=== PATIENT | female | born 1970 | race Caucasian/White ===

== ENCOUNTER 2020-09-07 13:02 | Emergency (ER) | payer MEDICAID, SELFPAY ==
[2020-09-07 13:18] VITALS: BP 120/78; PULSE 94; RESP 18; TEMP 36.4; O2SAT 100; BMI 15.7
--- NOTE | 2020-09-07 13:45 | ECG_ITS ---
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: : 1970 Requested By: Don Almanzar Order Number: [id number] Lawrence MD: JENNIFER SHAFFER Measurements Intervals [place] Rate: 82 P: 68 RI: 135 QRS: 67 QRSD: 92 T: 73 QT: 383 QTc: 450 Interpretive Statements SINUS RHYTHM POSSIBLE RIGHT VENTRICULAR CONDUCTION DELAY [RSR (QR) IN V1/V2] MODERATE ST DEPRESSION [0.05+ mV ST DEPRESSION] Compared to ECG 01/22/2019 23:11:10 No significant changes Electronically Signed On 09-07-2020 18:20:08 CDT by JENNIFER SHAFFER [id number]
--- NOTE | 2020-09-07 13:45 | XRR_ITS ---
PROCEDURE INFORMATION: Exam: XR Chest, 1 View Exam date and time: 09/07/2020 2:16 PM Age: 49 years old Clinical indication: Shortness of breath; Additional info: SOB TECHNIQUE: Imaging protocol: XR of the chest Views: 1 view. COMPARISON: CR Chest 1 view [id number] 01/22/2019 10:54 PM FINDINGS: Lungs: Unremarkable. No consolidation. Pleural space: Unremarkable. No pleural effusion. No pneumothorax. Heart/Mediastinum: Unremarkable. No cardiomegaly. Bones/joints: Unremarkable. XR/XR chest 1V portable [id number] IMPRESSION: No acute findings.
--- NOTE | 2020-09-07 13:46 | ED_ITS ---
HPI - SOB/Dyspnea General: Chief Complaint: Shortness of Breath/Dyspnea Stated Complaint: hard breathing / cp/ gagging Time Seen by Provider: 09/07/20 13:45 History of Present Illness: HPI Narrative: Patient is a 49-year-old female comes to the ED with shortness of breath. Past medical history of GERD. An upper scope was performed back in 2010 and they told her that she had acid reflux. She takes omeprazole to help with acid reflux, but has run out of m edication. Patient says the symptoms are chronic. She denies any epigastric pain or burning, but says her GERD symptom described as feeling something in her throat. She also reports having chronic episodes of shortness of breath, especially in the mornings. She does not have any inhalers and has not been diagnosed with any asthma or COPD. She says she does have a dry cough and sometimes it is productive and she gets up clear phlegm. Patient says she is a pack per day smoker with 99-kdld-gnev history. She also says that she drinks a 12 pack of beer every night. Patient endorses pain some diarrhea and some nausea with emesis after eating. She says for the past 2 weeks she has not eaten much because she is afraid she is getting nauseous and throwing up. Denies fever, chills, abdominal pain, constipation, dysuria or hematuria. Associated symptoms: Reports nausea and vomiting; Deny abdominal pain, chest pain, fever(s), orthopnea or palpitations Review of Systems Const: Denies: fever(s), chills or fatigue Eyes: Denies: change in vision or eye discomfort ENMT: Denies: throat pain, odynophagia, nasal discharge or nasal congestion Card: Denies: chest pain, palpitations, edema, swelling of feet/ankles, dyspnea on exertion or orthopnea Resp: Reports: dyspnea, productive cough (sometimes clear phlegm) and non- productive cough; Denies: wheezing GI: Reports: nausea, vomiting and diarrhea (chronic); Denies: abdominal pain, constipation or hematochezia : Denies: flank pain, dysuria or hematuria Musc: Denies: neck pain, back pain or extremity swelling Skin/Breast: Denies: rash or new lesions Neuro: Denies: headache(s), numbness in extremities or weakness in extremities Physical Exam Const: COMMON NORMALS: no acute distress, patient oriented x3 and alert GENERAL APPEARANCE: cooperative NUTRITIONAL APPEARANCE: cachectic HENMT: COMMON NORMALS: normocephalic HEAD & SCALP: normocephalic MOUTH: Normal oral and palatal mucosa present THROAT: posterior oropharynx normal and uvula midline Eye: COMMON NORMALS: Equal, round and reactive pupils present PUPIL: Yes Equal, round and reactive pupils present Neck/C-Spine: COMMON NORMALS: supple GENERAL: Yes normal visual inspection Resp: COMMON NORMALS: normal respiratory effort, No retractions and No use of accessory muscles EFFORT & INSPECTION: Yes able to speak in complete sentences and No labored AUSCULTATION: wheezes expiratory wheezes, i nspiratory wheezes and upper bilaterally Cardio: COMMON NORMALS: regular rate, regular rhythm, S1 normal heart sound present, S2 normal heart sound present, No gallops present (Cardio), No clicks present (Cardio), No murmurs present (Cardio) and Peripheral pulses 2+ throughout RATE: regular rate RHYTHM: regular rhythm HEART SOUNDS: S1 normal heart sound present and S2 normal heart sound present PERIPHERAL PULSES: Peripheral pulses 2+ throughout GI: COMMON NORMALS: Normal to inspection, nondistended, normoactive bowel sounds present, Soft to palpation, non-tender and no masses PALPATION: Yes Soft to palpation OTHER: No epigastric tenderness upon palpation. : COMMON NORMALS: Yes no CVA tenderness BLADDER/KIDNEY EXAM: Yes no CVA tenderness Back/Pelvis: COMMON NORMALS: no CVA tenderness Extremity: COMMON NORMALS: normal to inspection and no pedal edema Neuro: COMMON NORMALS: patient oriented x3 and moves all extremities SENSORIUM/ORIENTATION: Yes alert Skin: GENERAL SKIN EXAM: dry skin Course Reevaluation(s): Reevaluation #1: I then told patient about positive hCG test. She states she has not had a period in years. She denies any vaginal bleeding. She states she has not had any sexual contact and says there is no way that she could be . Denies any abdominal pain or UTI symptoms. Time: 15:33 Vital Signs: Vital signs: Vital Signs Temperature 97.5 F L 09/07/20 13:18 Pulse Rate 92 09/07/20 15:34 Respiratory Rate 17 09/07/20 15:34 Blood Pressure 116/68 09/07/20 15:34 Pulse Oximetry 97 09/07/20 15:34 MDM - SOB/Dyspnea MDM Narrative: Medical decision making narrative: Patient is a 49-year-old female comes to the ED with GERD symptoms. She states that this is a chronic issue that has been going on for years. Patient is a 84-ovmc-pmao smoker and drinks alcohol daily. Patient takes omeprazole but has run out. EKG showed normal sinus rhythm, with minimal ST segment depression seen, but when compared to EKG back in 2019 EKG is unchanged. Troponins were negative. Chest x-ray showed no acute infiltrates or findings. CBC was unremarkable. Sodium 128, AST 118, ALT 59 and alk phos 164. hCG was positive. hCG quant of 15 and ultrasound of pelvis showed no intrauterine , no ectopic, tubular structure with debris right adnexa of unclear etiology. Patient is having no abdominal pain, UTI symptoms, pelvic pain, vaginal bleeding or discharge. Patient diagnosed with GERD and elevated serum hCG level and . Patient was discharged with pantoprazole and Zofran. She was told to contact her PCP on Thursday morning get an appointment for reevaluation early next week. I stressed with patient the importance of cessation of tobacco smoking and alcohol to help with GERD symptoms. Return to ED precautions given. Patient understood agree with plan. Lab Data: Attestation: I reviewed the patient's lab results. Labs: Lab Results 09/07/20 09/07/20 09/07/20 Range/Units 14:33 14:33 14:33 WBC 5.4 (4.0-10.0) 10^3/ uL RBC 4.44 (4.1-5.3) 10^6/u L Hgb 15.6 H (11.5-15.3) g/dL Hct 44.9 (37.0-47.0) % MCV 101.1 H (81-99) fL MCH 35.1 H (28.0-34.0) pg MCHC 34.7 (30.0-36.0) g/dL RDW 12.2 (12.1-15.1) % Plt Count 153 (130-400) 10^3/c mm MPV 10.4 (7.4-10.4) fL Neut % (Auto) 69.4 % Lymph % (Auto) 19.0 % Snyder % (Auto) 8.8 % Eos % (Auto) 1.3 % Baso % (Auto) 1.3 % Neut # (Auto) 3.77 (1.8-7.7) 10^3/u L Lymph # (Auto) 1.0 (0.8-4.8) 10^3/u L Snyder # (Auto) 0.5 (0.2-0.9) 10^3/u L Eos # (Auto) 0.1 (0.0-0.8) 10^3/u L Baso # (Auto) 0.1 (0.0-0.1) 10^3/u L Nucleated RBC % (a uto) 0 % Nucleated RBCs # 0.0 /100WBC Sodium 128 L (136-145) mmol/L Potassium 3.5 (3.5-5.1) mmol/L Chloride 88 L (98-107) mmol/L Carbon Dioxide 27 (22-29) mmol/L Anion Gap 16.5 (5-19) BUN 4 L (6-20) mg/dL Creatinine 0.5 (0.5-0.9) mg/dL GFR Calculation 130.1 H (90-130) mL/min Glucose 133 H (65-115) mg/dL Calculated Osmolal ity 265 L (285-295) mOsm/k g Calcium 9.4 (8.5-10.5) mg/dL Total Bilirubin 1.2 (0.15-1.2) mg/dL AST 118 H (0-32) U/L ALT 59 H (0-33) U/L Alkaline Phosphata se 164 H (35-105) IU/L Troponin T Baselin e 6 (0-10) ng/L Troponin T 120 Min tribal (0-10) ng/L Delta Troponin T (0-10) ABS# Total Protein 6.9 (6.6-8.7) g/dL Albumin 3.5 (3.5-5.2) g/dL Globulin 3.4 (1.3-4.6) g/dL HCG, Qual (Negative) Ser , Alfonso i-Qnt mIU/mL 09/07/20 09/07/20 09/07/20 Range/Units 14:33 14:33 16:30 WBC (4.0-10.0) 10^3/ uL RBC (4.1-5.3) 10^6/u L Hgb (11.5-15.3) g/dL Hct (37.0-47.0) % MCV (81-99) fL MCH (28.0-34.0) pg MCHC (30.0-36.0) g/dL RDW (12.1-15.1) % Plt Count (130-400) 10^3/c mm MPV (7.4-10.4) fL Neut % (Auto) % Lymph % (Auto) % Snyder % (Auto) % Eos % (Auto) % Baso % (Auto) % Neut # (Auto) (1.8-7.7) 10^3/u L Lymph # (Auto) (0.8-4.8) 10^3/u L Snyder # (Auto) (0.2-0.9) 10^3/u L Eos # (Auto) (0.0-0.8) 10^3/u L Baso # (Auto) (0.0-0.1) 10^3/u L Nucleated RBC % (a uto) % Nucleated RBCs # /100WBC Sodium (136-145) mmol/L Potassium (3.5-5.1) mmol/L Chloride (98-107) mmol/L Carbon Dioxide (22-29) mmol/L Anion Gap (5-19) BUN (6-20) mg/dL Creatinine (0.5-0.9) mg/dL GFR Calculation (90-130) mL/min Glucose (65-115) mg/dL Calculated Osmolal ity (285-295) mOsm/k g Calcium (8.5-10.5) mg/dL Total Bilirubin (0.15-1.2) mg/dL AST (0-32) U/L ALT (0-33) U/L Alkaline Phosphata se (35-105) IU/L Troponin T Baselin e (0-10) ng/L Troponin T 120 Min tribal 6.28 (0-10) ng/L Delta Troponin T 0.28 (0-10) ABS# Total Protein (6.6-8.7) g/dL Albumin (3.5-5.2) g/dL Globulin (1.3-4.6) g/dL HCG, Qual Positive H (Negative) Ser , Alfonso i-Qnt 15.10 mIU/mL Imaging Data^: CXR: Attestation: I personally reviewed and interpreted this imaging study as follows: Radiologist's impression: [address] [place] [address] XRay Report Signed Patient: Hortencia Mckeon Unit #: [id number] : 1970 Age/Sex: 49 / F ADM Date: 09/07/20 Loc: ER Room/Bed: Attending Dr: Ordering Provider/Ordering MD: Don Almanzar Date of Service: 09/07/20 Procedure(s): XR chest 1V portable [id number] Accession Number(s): [id number] Report Number: [id number] PROCEDURE INFORMATION: Exam: XR Chest, 1 View Exam date and time: 09/07/2020 2:16 PM Age: 49 years old Clinical indication: Shortness of breath; Additional info: SOB TECHNIQUE: Imaging protocol: XR of the chest Views: 1 view. COMPARISON: CR Chest 1 view [id number] 01/22/2019 10:54 PM FINDINGS: Lungs: Unremarkable. No consolidation. Pleural space: Unremarkable. No pleural effusion. No pneumothorax. Heart/Mediastinum: Unremarkable. No cardiomegaly. Bones/joints: Unremarkable. XR/XR chest 1V portable [id number] IMPRESSION: No acute findings. Dictated By: Hosea Veloz Signed By: Hosea Veloz Signed Date/Time: 09/07/20 1433 DD/ 1432 US: Attestation: I personally reviewed and interpreted this imaging study as follows: Radiologist's impression: logy Report Patient: Hortencia Mckeon L Ordering Physician: Don Almanzar ID: [id number] Phone, Pager: Pager: N/A : 1970 Age/Gender: 49Y, F Primary Location: ER Procedure: US pelvic with transvaginal Study Date: 09/07/2020 4:00:14 PM Order #: [id number] Report Status: Finalized Reason: HCG positive [address] [address] Ultrasound Report Signed Patient: Hortencia Mckeon Unit #: [id number] : 1970 Age/Sex: 49 / F ADM Date: 09/07/20 Loc: ER Room/Bed: Attending Dr: Ordering Provider/Ordering MD: Don Almanzar Date of Service: 09/07/20 Procedure(s): US pelvic with transvaginal Accession Number(s): [id number] Report Number: [id number] PROCEDURE INFORMATION: Exam: US Nonobstetric Pelvis; Complete Exam date and time: 09/07/2020 4:23 PM Age: 49 years old Clinical indication: Abnormal findings; Abnormal lab test; + test; Additional info: Hcg positive TECHNIQUE: Imaging protocol: Transabdominal pelvic nonobstetric ultrasound. Complete exam. Real time ultrasound with image documentation. COMPARISON: OT Hip 2-3v RIGHT wwo Pelv* [id number] 01/23/2019 12:52 PM FINDINGS: Negative for intrauterine gestational sac, pole, or yolk sac. In the presence of a positive test the differential diagnosis includes early normal , recent spontaneous , and ectopic . Uterus/cervix: Uterus is normal. Endometrial stripe is 2.8 mm. The uterus measures 6.5 cm x 3 cm x 4.3 cm. There are cervical myometrial cyst Right adnexa: Ovary is not visualized . There is a tubular structure in the right adnexa which may reflect dilated fallopian tube with internal debris. this finding is not optimally visualized. Left adnexa: Ovary is not visualized Intraperitoneal space: No intraperitoneal free fluid. Bladder: Normal. The examination is negative for sonographic evidence of an ectopic US/US pelvic with transvaginal IMPRESSION: 1. Negative for intrauterine gestational sac, pole, or yolk sac. Rule out recent spontaneous , early normal , or ectopic . 2. Negative for ectopic . 3. Multiple cervical myometrial cysts 4. tubular structure with debris right adnexa of unclear etiology. 5. The ovaries are not visualized. 6. Negative uterine myometrium Dictated By: Hosea Veloz Signed By: Hosea Veloz Signed Date/Time: 09/07/201651 DD/ 1650 EKG Data^: EKG 1: Attestation: I personally reviewed and interpreted this EKG as follows: EKG Interpretation Date: 09/07/20 Interpretation: Sinus rhythm, 82 bpm, some ST depression in leads V4 and V5. Computer Generated Interpretation: Sinus rhythm -POSSIBLE RIGHT VENTRICULAR CONDUCTION DELAY [RSR (QR) IN V1/V2] MODERATE ST DEPRESSION [0.05+ mV ST DEPRESSION] Compared to ECG 01/22/2019 23:11:10 No significant changes-Dr. Mcpherson EKG 2: Attestation: I personally reviewed and interpreted this EKG as follows: EKG Interpretation Date: 09/07/20 EKG interpretation time: 15:56 Interpretation: Sinus rhythm, 79 bpm, ST segment depression in leads V4 and V5- unchanged from previous EKG. Discharge Plan Discharge Patient Disposition: Home Clinical Impression: Elevated serum hCG in female, not , Hyponatremia Gastroesophageal reflux disease Qualifiers: Esophagitis presence: esophagitis presence not specified Qualified Code(s): K21.9 - Gastro-esophageal reflux disease without esophagitis Condition: Stable Prescriptions: New ondansetron 4 mg tablet,disintegrating 4 mg PO Q8H Qty: 30 RF: 0 pantoprazole 40 mg tablet,delayed release (DR/EC) 40 mg PO DAILY 30 Days Qty: 30 RF: 0 No Action levothyroxine 100 mcg Tablet 100 mcg PO DAILY RF: 0 omeprazole 20 mg Tablet,Delayed Release (Dr/Ec) 20 mg PO DAILY RF: 0 Discharge Orders: Discharge Order (Routine); Ordered 09/07/20 Ordered By: Don Almanzar Referrals: Che Flores DO [Primary Care Provider] - Discharge Diet: Regular Discharge Activity: Increase activity as tolerated Patient Instructions: Hyponatremia (ED), Gastroesophageal Reflux Disease (ED) Activity Restrictions/Additional Instructions: Follow-up with medical provider as directed. Contact PCP on Thursday morning to set up an appointment for reevaluation early next week. Have PCP check care hCG quant lab along with CMP lab to check sodium levels. Take medications as prescribed. Alcohol and tobacco cessation is highly recommended to help with GERD symptoms. Return to the ER or your medical provider if condition worsens. Please read and understand discharge instructions. If any questions, please ask. Discharge Date/Time: 09/07/20 18:36 Coding Level of Care Code ED Wine Steward/Stewardess for Chg Fwd Exam Comprehensive
[2020-09-07 14:15] VITALS: BP 118/80; PULSE 87; RESP 19; O2SAT 96
[2020-09-07] MEDS: lidocaine 2% viscous 15 ML, aluminum-mag hydrox-simethicon 30 ML, sucralfate oral liq 1 GM PO (14:21)
[2020-09-07 14:40] LABS: Basophils # 0.1 10^3/uL (0.0-0.1); Basophils % 1.3 %; Eosinophils # 0.1 10^3/uL (0.0-0.8); Eosinophils % 1.3 %; Hematocrit 44.9 % (37.0-47.0); Hemoglobin 15.6 g/dL (11.5-15.3); Mean Corpuscular HGB Conc 34.7 g/dL (30.0-36.0); Mean Corpuscular Hemoglobin 35.1 pg (28.0-34.0); Mean Corpuscular Volume 101.1 fL (81-99); Mean Platelet Volume 10.4 fL (7.4-10.4); Monocytes # 0.5 10^3/uL (0.2-0.9); Monocytes % 8.8 %; Neutrophils # 3.77 10^3/uL (1.8-7.7); Neutrophils % 69.4 %; Nucleated Red Blood Cells % 0 %; Platelet Count 153 10^3/cmm (130-400); Red Blood Count 4.44 10^6/uL (4.1-5.3); Red Cell Distribution Width 12.2 % (12.1-15.1); White Blood Count 5.4 10^3/uL (4.0-10.0)
[2020-09-07 14:47] VITALS: PULSE 82; RESP 16; O2SAT 93
[2020-09-07] MEDS: ipratropium-albuterol 3 mL Neb INHALATION (14:47)
[2020-09-07 14:55] LABS: HCG, Serum Qual Positive (Negative)
[2020-09-07 15:03] LABS: Alanine Aminotransferase 59 U/L (0-33); Albumin Level 3.5 g/dL (3.5-5.2); Alkaline Phosphatase 164 IU/L (35-105); Anion Gap 16.5 (5-19); Aspartate Amino Transferase 118 U/L (0-32); Blood Urea Nitrogen 4 mg/dL (6-20); Calcium 9.4 mg/dL (8.5-10.5); Carbon Dioxide 27 mmol/L (22-29); Chloride 88 mmol/L (98-107); Creatinine Clr Calc Pharmacy 104.8488; Globulin 3.4 g/dL (1.3-4.6); Glomerular Filtration Rate 130.1 mL/min (90-130); Glucose 133 mg/dL (65-115); Osmolality Calculated 265 mOsm/kg (285-295); Potassium 3.5 mmol/L (3.5-5.1); Sodium 128 mmol/L (136-145); Total Bilirubin 1.2 mg/dL (0.15-1.2); Total Protein 6.9 g/dL (6.6-8.7)
[2020-09-07 15:04] LABS: Troponin(5th) Baseline 6 ng/L (0-10)
[2020-09-07 15:34] VITALS: BP 116/68; PULSE 92; RESP 17; O2SAT 97
--- NOTE | 2020-09-07 15:36 | USR_ITS ---
PROCEDURE INFORMATION: Exam: US Nonobstetric Pelvis; Complete Exam date and time: 09/07/2020 4:23 PM Age: 49 years old Clinical indication: Abnormal findings; Abnormal lab test; + test; Additional info: Hcg positive TECHNIQUE: Imaging protocol: Transabdominal pelvic nonobstetric ultrasound. Complete exam. Real time ultrasound with image documentation. COMPARISON: OT Hip 2-3v RIGHT wwo Pelv* [id number] 01/23/2019 12:52 PM FINDINGS: Negative for intrauterine gestational sac, pole, or yolk sac. In the presence of a positive test the differential diagnosis includes early normal , recent spontaneous , and ectopic . Uterus/cervix: Uterus is normal. Endometrial stripe is 2.8 mm. The uterus measures 6.5 cm x 3 cm x 4.3 cm. There are cervical myometrial cyst Right adnexa: Ovary is not visualized . There is a tubular structure in the right adnexa which may reflect dilated fallopian tube with internal debris. this finding is not optimally visualized. Left adnexa: Ovary is not visualized Intraperitoneal space: No intraperitoneal free fluid. Bladder: Normal. The examination is negative for sonographic evidence of an ectopic US/US pelvic with transvaginal IMPRESSION: 1. Negative for intrauterine gestational sac, pole, or yolk sac. Rule out recent spontaneous , early normal , or ectopic . 2. Negative for ectopic . 3. Multiple cervical myometrial cysts 4. tubular structure with debris right adnexa of unclear etiology. 5. The ovaries are not visualized. 6. Negative uterine myometrium
--- NOTE | 2020-09-07 15:45 | ECG_ITS ---
[facility] Test Date: 2020-09-07 Pat Name: Hortencia Mckeon Department: Room: Gender: Female Turner Off: : 1970 Requested By: Don Almanzar Order Number: [id number] Lawrence MD: JENNIFER SHAFFER Measurements Intervals [place] Rate: 79 P: 75 MS: 154 QRS: 71 QRSD: 94 T: 57 QT: 377 QTc: 434 Interpretive Statements SINUS RHYTHM POSSIBLE RIGHT VENTRICULAR CONDUCTION DELAY [RSR (QR) IN V1/V2] NONSPECIFIC ST & T-WAVE ABNORMALITY Compared to ECG 09/07/2020 14:10:36 T-wave abnormality now present ST (T wave) deviation no longer present Electronically Signed On 09-07-2020 18:21:39 CDT by JENNIFER SHAFFER [id number]
[2020-09-07 17:03] LABS: Troponin 5 2HR 6.28 ng/L (0-10); Troponin 5 2HR Delta 0.28 ABS# (0-10)
[2020-09-07] MEDS: sodium chloride 0.9% 1,000 ML 999 ML IV (17:19)
== END 2020-09-07 18:36 | disposition home or self-care (01) ==
PROVIDERS: Emergency Provider Physician Assistant; PCP Internal Medicine
DX: K21.9 Gastro-esophageal reflux disease without esophagitis (principal); R79.89 Other specified abnormal findings of blood chemistry; E87.1 Hypo-osmolality and hyponatremia
CPT/HCPCS: 12345; 71045; 76830; 76856; 80053; 84484; 84702; 84703; 85025; 93005; 94640; 96360; 99283; 99284; J7030

== ENCOUNTER 2020-10-02 12:49 | Outpatient (CLI) | payer MEDICAID, SELFPAY ==
--- NOTE | 2020-10-02 12:59 | CT_ITS ---
WS: [id number] CT CHEST, ABDOMEN, AND PELVIS TECHNIQUE: Contrast-enhanced CT of the chest, abdomen, and pelvis with coronal and sagittal reformatt ed images. CLINICAL INFORMATION: DYSPNEA/SHORTNESS OF BREATH, TOBACCO USE, ALCOHOL ABUSE COMPARISON: Ultrasound September 07, 2020 DLP: 1265.[address] scans at [facility] use at least one of these dose optimization techniques: automat ed exposure control; mA and/or kV adjustment per patient size (includes targeted exams where dose is matched to clinical indication); or iterative reconstruction. CT CHEST: Mild chronic emphysematous changes. No acute pulmonary infiltrates. No focal pneumonia. No consolidat ion or pleural fluid. Subsegmental atelectasis right lower lobe. Chronic right rib fractures with yareli ileana formation. No axillary lymphadenopathy. No mediastinal or hilar lymphadenopathy. CT ABDOMEN AND PELVIS: Diffuse fatty infiltration of the liver. Normal portal vein and splenic vein. Normal gallbladder. Nor mal pancreas. Adrenal glands are normal. Normal renal parenchymal enhancement. Normal spleen. Normal GE junction. Normal sigmoid colon. No evidence of small or large bowel obstruction. No periaortic or retroperitoneal lymphadenopathy. No inguinal lymphadenopathy. Distention of the right common femoral vein and external iliac vein with peripheral enhancement suspi cious for thrombus. This can be further evaluated with ultrasound. Adnexa appear normal. No adnexal mass or hydrosalpinx. Prior postoperative changes cannulated screw f ixation right femoral neck. Lumbar curve. No free fluid in the abdomen or pelvis. CT/CT chest abd pel w con* IMPRESSION: 1. Mild chronic emphysematous changes. No acute pulmonary infiltrates. 2. Slight subsegmental atelectasis right lower lobe. 3. No mediastinal or hilar lymphadenopathy. 4. Diffuse fatty infiltration of the liver. 5. Distention and peripheral enhancement right common femoral vein extending i nto the external iliac vein suspicious for THROMBUS. This can be further evalua sonali with ultrasound. 6. No free fluid in the abdomen or pelvis. 7. No adnexal masses. No evidence of hydrosalpinx. Discussed with Dr. Flores's nurse at 10/02/2020 3:38 PM.
[2020-10-02] MEDS: iohexol 300 mg/mL 50 mL Btl PO (13:26)
[2020-10-02] MEDS: iohexol 300 mg/mL 100 mL Btl IV (15:09)
== END 2020-10-02 12:50 | disposition home or self-care (01) ==
LOC: RADWPI 12:52
PROVIDERS: PCP Internal Medicine; Visit Provider Internal Medicine
DX: R06.02 Shortness of breath (principal); F17.209 Nicotine dependence, unspecified, with unspecified nicotine-induced disorders; Z32.01 Encounter for pregnancy test, result positive; F10.10 Alcohol abuse, uncomplicated; K76.89 Other specified diseases of liver; J98.11 Atelectasis
CPT/HCPCS: 71260; 74177; Q9967

== ENCOUNTER 2020-10-03 10:07 | Outpatient (CLI) | payer MEDICAID, SELFPAY ==
--- NOTE | 2020-10-03 10:23 | USCV_ITS ---
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 The following venous structures were evaluated: common femoral vein, profunda vein, proximal portion of the greater saphenous vein, superficial femoral vein, and the popliteal vein. In addition, the posterior tibial and peroneal trunk were evaluated. Serial compression, augmentation maneuvers, and spectral Doppler flow evaluation were performed. FINDINGS: Occlusive DVT is noted within the right common femoral vein extending throughout the lower extremity to the peroneal. All other veins examined appear free of thrombus at this time. No left DVT. CONCLUSIONS Acute DVT right CFV through the peroneal vein. No left DVT. Dr. Yoly Miles DO (Electronically Signed) Final Date: 03 October 2020 11:32 S
== END 2020-10-03 10:08 | disposition home or self-care (01) ==
LOC: RAD 10:16
PROVIDERS: PCP Internal Medicine; Visit Provider Nurse Practitioner Family
DX: I82.451 Acute embolism and thrombosis of right peroneal vein (principal)
CPT/HCPCS: 93970

== ENCOUNTER 2021-03-14 12:35 | Outpatient (CLI) | payer MEDICAID, SELFPAY ==
--- NOTE | 2021-03-14 12:45 | USCV_ITS ---
Hortencia Mckeon Age: 50 Gender: F : 1970 Exam Date: 03/14/2021 13:02 Ordering Phys: Bhanu Bates MD Technologist: Maricel Arteaga [place] [facility] [place]: History of deep vein thrombosis HISTORY: History of deep venous thrombosis. PROCEDURES: Comparison: 10-03-2020. Venous duplex imaging was performed in only the right lower extremity. The following venous structures were evaluated: common femoral vein, profunda vein, proximal portion of the greater saphenous vein, superficial femoral vein, and the popliteal vein. In addition, the posterior tibial and peroneal trunk were evaluated. Serial compression, augmentation maneuvers, and spectral Doppler flow evaluation were performed. FINDINGS: Deep venous thrombosis noted in the mid-distal femoral vein on the right. Vessel appears small. Partial compression with thrombus noted in the peroneal trunk. CONCLUSIONS Residual thrombus mid to distal femoral vein with changes of chronic DVT. Small femoral vein. Non occlusive thrombus peroneal trunk Carter Dwyer MD (Electronically Signed) Final Date: 14 Mar 2021 18:03 S
== END 2021-03-14 12:36 | disposition home or self-care (01) ==
PROVIDERS: PCP Internal Medicine; Visit Provider Surgery
DX: Z86.718 Personal history of other venous thrombosis and embolism (principal); I82.419 Acute embolism and thrombosis of unspecified femoral vein
CPT/HCPCS: 93971

== ENCOUNTER 2021-03-30 06:23 | Inpatient (IN) | payer MEDICAID, SELFPAY ==
[2021-03-30] VITALS (94 sets, daily range): BP systolic 83–120; BP diastolic 53–72; PULSE 90–122; RESP 12–30; TEMP 36.6–37.1; O2SAT 78–100; BMI 17.8
--- NOTE | 2021-03-30 06:35 | XRR_ITS ---
PROCEDURE INFORMATION: Exam: XR Chest Exam date and time: 03/30/2021 6:37 AM Age: 50 years old Clinical indication: Cough and shortness of breath; Smoker's cough TECHNIQUE: Imaging protocol: XR of the chest. Views: 1 view. COMPARISON: Chest radiograph 09/07/2020 FINDINGS: Lungs: The right lung is clear. Mild left basilar airspace opacity (atelectasis and/or consolidation), new compared to 09/07/2020. No pulmonary edema identified. Pleural spaces: No visible pneumothorax. Small left pleural effusion, new compared to 09/07/2020. Heart/Mediastinum: Heart size within normal limits. Bones/joints: No emergent findings identified. XR/XR chest 1V portable [id number] IMPRESSION: 1. Mild left basilar airspace opacity (atelectasis and/or consolidation), new compared to 09/07/2020. 2. Small left pleural effusion, new compared to 09/07/2020.
--- NOTE | 2021-03-30 06:35 | CTR_ITS ---
PROCEDURE INFORMATION: Exam: CTA Chest With Contrast Exam date and time: 03/30/2021 6:45 AM Age: 50 years old Clinical indication: Abdominal tenderness and bloating; Cough and shortness of breath; Smoker's cough; Additional info: SOB with elevated ddimer TECHNIQUE: Imaging protocol: Computed tomographic angiography of the chest with contrast. 3D rendering (Not supervised by radiologist): MIP and/or 3D reconstructed images were created by the technologist. Radiation optimization: All CT scans at this facility use at least one of these dose optimization techniques: automated exposure control; mA and/or kV adjustment per patient size (includes targeted exams where dose is matched to clinical indication); or iterative reconstruction. Contrast material: OMNIPAQUE 350; Contrast volume: 80 ml; Contrast route: INTRAVENOUS (IV); COMPARISON: CT chest abd pel w con* 10/02/2020 2:56 PM RADIATION DOSE METRICS: Total DLP (mGy-cm): 1017.22 FINDINGS: Pulmonary arteries: No pulmonary emboli identified. Aorta: Mild atherosclerotic calcification of the thoracic aorta. No thoracic aortic aneurysm or dissection identified. Lungs: Moderate atelectasis and/or consolidation in the left lower lobe at the lung base. Pleural spaces: No pneumothorax. Small left pleural effusion. Heart: Heart size within normal limits. Lymph nodes: No enlarged mediastinal/hilar lymph nodes identified. Bones/joints: Healed fractures of the right 9th rib posteriorly, right 10th rib posteriorly, and right 11th rib posteriorly. Soft tissues: Unremarkable. IMPRESSION: 1. No pulmonary emboli identified. 2. Moderate atelectasis and/or consolidation in the left lower lobe at the lung base. 3. Small left pleural effusion. PROCEDURE INFORMATION: Exam: CT Abdomen And Pelvis With Contrast Exam date and time: 03/30/2021 6:45 AM Age: 50 years old Clinical indication: Abdominal tenderness and bloating; Cough and shortness of breath; Smoker's cough; Additional info: SOB with elevated ddimer TECHNIQUE: Imaging protocol: Computed tomography of the abdomen and pelvis with contrast. Radiation optimization: All CT scans at this facility use at least one of these dose optimization techniques: automated exposure control; mA and/or kV adjustment per patient size (includes targeted exams where dose is matched to clinical indication); or iterative reconstruction. Contrast material: OMNIPAQUE 350; Contrast volume: 80 ml; Contrast route: INTRAVENOUS (IV); COMPARISON: CT chest abd pel w con* 10/02/2020 2:56 PM RADIATION DOSE METRICS: Total DLP (mGy-cm): 1017.22 FINDINGS: Liver: Mild nodularity of the liver contour, consistent with cirrhosis. The liver parenchyma is heterogeneous. Gallbladder and bile ducts: Unremarkable. Pancreas: Unremarkable. Spleen: Unremarkable. Adrenal glands: Unremarkable. Kidneys and ureters: The kidneys are unremarkable. No renal stones identified. No hydronephrosis on either side. Stomach and bowel: No bowel obstruction identified. No diverticulitis identified. Diffuse wall thickening of the colon, increased from prior study. A likely cause for this is portal hypertensive colopathy. Infection and inflammatory bowel disease are alternate possibilities. Appendix: The appendix is not visualized as a separate structure. Intraperitoneal space: No free intraperitoneal air identified. Large amount of ascites throughout the abdomen and pelvis, new. Vasculature: No abdominal aortic aneurysm. Recanalization of the umbilical vein. Lymph nodes: Unremarkable. Urinary bladder: Unremarkable as visualized. Reproductive: Unremarkable as visualized. Bones/joints: Metallic hardware noted in the right proximal femur. Soft tissues: Unremarkable. CT/CT angio chest w abd pel w con IMPRESSION: 1. Mild nodularity of the liver contour, consistent with cirrhosis. 2. Manifestations of portal hypertension (large amount of ascites, recanalized umbilical vein). 3. Diffuse wall thickening of the colon, increased from prior study. A likely cause for this is portal hypertensive colopathy. Infection and inflammatory bowel disease are alternate possibilities. Radiation Dose CTDIVOL = (mGy): DLP = 1017.22~1017.22 (mGy-cm)
--- NOTE | 2021-03-30 06:36 | ECG_ITS ---
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 Measurements Intervals [place] Rate: 91 P: 19 CA: 166 QRS: 33 QRSD: 95 T: 40 QT: 348 QTc: 429 Interpretive Statements SINUS RHYTHM LOW QRS VOLTAGE IN EXTREMITY LEADS [QRS DEFLECTION < 0.5 mV IN LIMB LEADS] POSSIBLE RIGHT VENTRICULAR CONDUCTION DELAY [RSR (QR) IN V1/V2] NONSPECIFIC T-WAVE ABNORMALITY Compared to ECG 09/07/2020 15:42:45 Low QRS voltage now present T-wave abnormality still present Electronically Signed On 03-30-2021 16:48:41 CDT by Luan Burns M.D. [id number]
--- NOTE | 2021-03-30 06:38 | W.ED.GENADLT ---
HPI - General Adult General: Chief complaint: Abdominal Pain Stated complaint: abd pain Time Seen by Provider: 03/30/21 06:24 Source: patient, family and RN notes reviewed Limitations: no limitations History of Present Illness: HPI narrative: This patient is a 50-year-old female who presents to the emergency department for abdominal distention and pain discomfort. Mild shortness of breath. Patient has been treated with Eliquis for a DVT in the right lower leg from her groin to past her knee. Patient was diagnosed with a DVT back in September of last year. Patient subsequently did have a follow-up ultrasound that still showed residual clot. Patient was seen in the PCPs clinic on 03/21/2021 and at that time they had discussed possible placement of IVC filter due to continual clot. Patient is scheduled to have a follow-up appointment for this. The patient's weight was 110 pounds at that visit. Patient believes that she has gained weight. Now has abdominal distention and tenderness. Patient denies a history of cirrhosis of the liver. Patient denies any heavy drinking however to clarify patient states she has been a lifelong beer drinker drinking over 12 pack every day. But denies heavy hard alcohol drinking.. Patient is a smoker of a pack per day and has for several years. Patient denies any other significant medical problems. Patient states she does feel slightly short of breath today. We will do medical evaluation and treat as needed. Onset (ago): day(s) (5) Location: abdomen Severity: moderate Severity scale (1-10): 5 Quality: dull Pain Consistency: constant Relieving factors: none Associated symptoms: Reports dyspnea and short of breath; Deny chest pain, headache(s), nausea, rash, palpitations or vomiting Review of Systems General: Reports: 10 or more systems reviewed and unremarkable except in HPI and below Const: Denies: fever(s), chills, body aches or fatigue Eyes: Denies: change in vision or blurry vision ENMT: Denies: throat pain, hoarseness or mouth pain Card: Denies: chest pain, palpitations, irregular heart rhythm, edema, swelling of feet/ankles or lightheadedness Resp: Reports: dyspnea; Denies: productive cough, non-productive cough, wheezing or pain on inspiration GI: Reports: abdominal pain; Denies: nausea or vomiting : Denies: flank pain, difficulty voiding, dysuria, urinary frequency, urinary urgency or urinary hesitancy Musc: Denies: neck pain, back pain, extremity pain, extremity swelling, joint pain, joint swelling, joint redness, joint warmth or limited range of motion Skin/Breast: Denies: rash, pruritus, erythema or skin tenderness Neuro: Denies: headache(s), numbness in extremities or weakness in extremities Psych: Denies: anxiety or depression PFSH ED PFSH: Medical History GERD (gastroesophageal reflux disease) Family History Other CAD (coronary artery disease) Cancer Lupus Denies family history of Chronic kidney disease (CKD) Anesthesia complication Bleeding disorder Social History Smoking and tobacco status: current every day smoker cigarettes Alcohol intake: current Alcohol intake frequency: 3 or more drinks per day Alcohol type: beer History of recent travel: No Physical Exam Const: COMMON NORMALS: no acute distress, average body habitus, patient oriented x3, no limitations, healthy appearing, alert and well nourished HENMT: COMMON NORMALS: normocephalic, atraumatic, hearing grossly normal bilaterally, external ears normal, EAC's normal, TM's normal bilaterally, Normal external nose present, Normal nasal mucous membranes and turbinates present, moist oral mucous membranes, oropharynx normal, dentition normal and gingiva normal HEAD & SCALP: normocephalic and atraumatic NOSE: Normal external nose present and Normal nasal mucous membranes and turbinates present EXTERNAL EAR: Yes external ears normal EXTERNAL AUDITORY CANAL: EAC's normal TYMPANIC MEMBRANE: TM's normal bilaterally Neck/C-Spine: COMMON NORMALS: full ROM, no lymphadenopathy, supple, no meningeal signs, no JVD, Thyroid normal and No carotid bruits THYROID: Thyroid normal Chest: COMMONS NORMALS: normal inspection of the chest, normal palpation of entire chest wall, normal inspection of the breasts and normal palpation of the breasts Breast/axilla inspection: Yes normal inspection of the breasts BREAST/AXILLA PALPATION: Yes normal palpation of the breasts Resp: COMMON NORMALS: normal respiratory effort, No retractions, No use of accessory muscles, clear to auscultation bilaterally and percussion normal AUSCULTATION: clear to auscultation bilaterally PERCUSSION: percussion normal Cardio: COMMON NORMALS: no JVD, regular rate, regular rhythm, S1 normal heart sound present, S2 normal heart sound present, No gallops present (Cardio), No clicks present (Cardio), No murmurs present (Cardio), No rub (Cardio) and Peripheral pulses 2+ throughout RATE: regular rate RHYTHM: regular rhythm HEART SOUNDS: S1 normal heart sound present and S2 normal heart sound present PERIPHERAL PULSES: Peripheral pulses 2+ throughout GI: COMMON NORMALS: Normal to inspection, nondistended, normoactive bowel sounds present, No hepatosplenomegaly present, no masses and no bruits; negative for Soft to palpation and negative for non-tender INSPECTION: Yes abdominal distension and Yes Fluid wave present PALPATION: No Soft to palpation, Yes Firmness to palpation present (GI), Yes Tenderness to palpation present (GI) and Yes No hepatosplenomegaly present PERCUSSION: Fluid wave present : COMMON NORMALS: Yes no CVA tenderness, Yes normal external appearance, Yes normal appearance of the vagina, Yes normal appearance of the cervix, Yes normal bimanual exam, Yes No adnexal tenderness and Yes no masses BLADDER/KIDNEY EXAM: Yes no CVA tenderness BIMANUAL EXAM - VAGINA & UTERUS: Yes normal bimanual exam Back/Pelvis: COMMON NORMALS: no CVA tenderness, thoracic and lumbar spine normal to inspection, no thoracic nor lumbar tenderness, thoraco-lumbar ROM normal and straight leg raise negative bilaterally Extremity: COMMON NORMALS: normal to inspection, full ROM, capillary refill normal, no joint enlargement, no clubbing, cyanosis or edema, no calf tenderness and no pedal edema Neuro: COMMON NORMALS: patient oriented x3 SENSORIUM/ORIENTATION: Yes alert MENINGEAL SIGNS: Yes no meningeal signs Course Reevaluation(s): Reevaluation #1: Patient stable at this time patient's current weight is 123 pounds this is a 13 pound weight gain since 03/21/2021. Time: 07:16 Reevaluation #2: Patient sodium level is 113 with a 13 pound weight gain and abdomen appears to have ascites. Concerning for possible cirrhosis or other liver related issue. Will give patient 80 Lasix to try to relieve some of the excess ascitic fluid. Will monitor closely. Time: 07:24 Consultations: Consultation #1: I discussed at length with Dr. Price hospitalist she agrees with admission to the patient and the current course of treatment. She agrees the patient most likely will need a abdominal paracentesis.. We will hold her Eliquis and prepare for procedure on Thursday. Patient will be admitted to the ICU Time: 09:17 Vital Signs: Vital signs: Vital Signs Temperature 97.8 F 03/30/21 06:34 Pulse Rate 95 03/30/21 06:34 Blood Pressure 103/58 03/30/21 06:34 Pulse Oximetry 98 03/30/21 06:34 MDM - General Adult MDM Narrative: Medical decision making narrative: This patient is a 50-year-old female who presents to the emergency department for abdominal distention and pain discomfort. Mild shortness of breath. Patient has been treated with Eliquis for a DVT in the right lower leg from her groin to past her knee. Patient was diagnosed with a DVT back in September of last year. Patient subsequently did have a follow-up ultrasound that still showed residual clot. Patient was seen in the PCPs clinic on 03/21/2021 and at that time they had discussed possible placement of IVC filter due to continual clot. Patient is scheduled to have a follow-up appointment for this. The patient's weight was 110 pounds at that visit. Patient believes that she has gained weight. Now has abdominal distention and tenderness. Patient denies a history of cirrhosis of the liver. Patient denies any heavy drinking. however to clarify patient states she has been a lifelong beer drinker drinking over 12 pack every day. But denies heavy hard alcohol drinking.. Patient is a smoker of a pack per day and has for several years. Patient denies any other significant medical problems. Patient states she does feel slightly short of breath today.Patient sodium level is 113 with a 13 pound weight gain and abdomen appears to have ascites. Concerning for possible cirrhosis or other liver related issue. Will give patient 80 Lasix to try to relieve some of the excess ascitic fluid.1. Mild nodularity of the liver contour, consistent with cirrhosis. 2. Manifestations of portal hypertension (large amount of ascites, recanalized umbilical vein). 3. Diffuse wall thickening of the colon, increased from prior study. A likely cause for this is portal hypertensive colopathy. Infection and inflammatory bowel disease are alternate possibilities. I discussed at length with Dr. Price hospitalist she agrees with admission to the patient and the current course of treatment. She agrees the patient most likely will need a abdominal paracentesis.. We will hold her Eliquis and prepare for procedure on Thursday. Patient will be admitted to the ICU Medical Records: Attestation: I reviewed the patient's medical records. Lab Data: Attestation: I reviewed the patient's lab results. Labs: Lab Results 03/30/21 03/30/21 03/30/21 Range/Units 06:30 06:30 06:30 WBC 7.2 (4.0-10.0) 10^3/ uL RBC 3.10 L (4.1-5.3) 10^6/u L Hgb 11.5 (11.5-15.3) g/dL Hct 31.3 L (37.0-47.0) % MCV 101.0 H (81-99) fL MCH 37.1 H (28.0-34.0) pg MCHC 36.7 H (30.0-36.0) g/dL RDW 13.9 (12.1-15.1) % Plt Count 215 (130-400) 10^3/c mm MPV 9.0 (7.4-10.4) fL Neut % (Auto) 67.3 % Lymph % (Auto) 19.7 % [place] % (Auto) 10.4 % Eos % (Auto) 1.0 % Baso % (Auto) 1.0 % Neut # (Auto) 4.85 (1.8-7.7) 10^3/u L Lymph # (Auto) 1.4 (0.8-4.8) 10^3/u L [place] # (Auto) 0.8 (0.2-0.9) 10^3/u L Eos # (Auto) 0.1 (0.0-0.8) 10^3/u L Baso # (Auto) 0.1 (0.0-0.1) 10^3/u L Nucleated RBC % (a uto) 0 % Nucleated RBCs # 0.0 /100WBC PT 18.10 H (12.1-14.9) SECO NDS INR 1.46 H (0.8-1.2) APTT 39.3 H (23.9-36.7) SECO NDS Sodium 113 L* (136-145) mmol/L Potassium 4.0 (3.5-5.1) mmol/L Chloride 78 L (98-107) mmol/L Carbon Dioxide 23 (22-29) mmol/L Anion Gap 16.0 (5-19) BUN 4 L (6-20) mg/dL Creatinine 0.4 L (0.5-0.9) mg/dL GFR Calculation 167.6 H (90-130) mL/min Glucose 94 (65-115) mg/dL Calculated Osmolal ity 233 L (285-295) mOsm/k g Calcium 7.8 L (8.5-10.5) mg/dL Total Bilirubin 1.5 H (0.15-1.2) mg/dL AST 93 H (0-32) U/L ALT 27 (0-33) U/L Alkaline Phosphata se 114 H (35-105) IU/L Troponin T Baselin e (0-10) ng/L NT-Pro-B Natriuret Pep 812 H (0-125) pg/mL Total Protein 5.4 L (6.6-8.7) g/dL Albumin 2.7 L (3.5-5.2) g/dL Globulin 2.7 (1.3-4.6) g/dL Lipase 27 (13-60) U/L Urine Color (Yellow) Urine Appearance (CLEAR) Urine pH (5-7) Ur Specific Gravit y (1.005-1.030) Urine Protein (Negative) Urine Glucose (UA) (Normal) Urine Ketones (Negative) Urine Blood (Negative) Urine Nitrate (Negative) Urine Bilirubin (Negative) Urine Urobilinogen (Negative) mg/dL Ur Leukocyte Jayshree ase (Negative) Ethyl Alcohol < 10 (0-10) mg/dL 03/30/21 03/30/21 Range/Units 06:30 07:11 WBC (4.0-10.0) 10^3/ uL RBC (4.1-5.3) 10^6/u L Hgb (11.5-15.3) g/dL Hct (37.0-47.0) % MCV (81-99) fL MCH (28.0-34.0) pg MCHC (30.0-36.0) g/dL RDW (12.1-15.1) % Plt Count (130-400) 10^3/c mm MPV (7.4-10.4) fL Neut % (Auto) % Lymph % (Auto) % [place] % (Auto) % Eos % (Auto) % Baso % (Auto) % Neut # (Auto) (1.8-7.7) 10^3/u L Lymph # (Auto) (0.8-4.8) 10^3/u L [place] # (Auto) (0.2-0.9) 10^3/u L Eos # (Auto) (0.0-0.8) 10^3/u L Baso # (Auto) (0.0-0.1) 10^3/u L Nucleated RBC % (a uto) % Nucleated RBCs # /100WBC PT (12.1-14.9) SECO NDS INR (0.8-1.2) APTT (23.9-36.7) SECO NDS Sodium (136-145) mmol/L Potassium (3.5-5.1) mmol/L Chloride (98-107) mmol/L Carbon Dioxide (22-29) mmol/L Anion Gap (5-19) BUN (6-20) mg/dL Creatinine (0.5-0.9) mg/dL GFR Calculation (90-130) mL/min Glucose (65-115) mg/dL Calculated Osmolal ity (285-295) mOsm/k g Calcium (8.5-10.5) mg/dL Total Bilirubin (0.15-1.2) mg/dL AST (0-32) U/L ALT (0-33) U/L Alkaline Phosphata se (35-105) IU/L Troponin T Baselin e 17 H (0-10) ng/L NT-Pro-B Natriuret Pep (0-125) pg/mL Total Protein (6.6-8.7) g/dL Albumin (3.5-5.2) g/dL Globulin (1.3-4.6) g/dL Lipase (13-60) U/L Urine Color Yellow (Yellow) Urine Appearance Clear (CLEAR) Urine pH 5 (5-7) Ur Specific Gravit y 1.015 (1.005-1.030) Urine Protein Neg (Negative) Urine Glucose (UA) Norm (Normal) Urine Ketones Negative (Negative) Urine Blood Neg (Negative) Urine Nitrate Negative (Negative) Urine Bilirubin Neg (Negative) Urine Urobilinogen Norm (Negative) mg/dL Ur Leukocyte Jayshree ase Negative (Negative) Ethyl Alcohol (0-10) mg/dL Imaging Data^: CT Abd/Pel: Attestation: I personally reviewed and interpreted this imaging study as follows: My impression: MPRESSION: 1. Mild nodularity of the liver contour, consistent with cirrhosis. 2. Manifestations of portal hypertension (large amount of ascites, recanalized umbilical vein). 3. Diffuse wall thickening of the colon, increased from prior study. A likely cause for this is portal hypertensive colopathy. Infection and inflammatory bowel disease are alternate possibilities. Radiologist's impression: MPRESSION: 1. Mild nodularity of the liver contour, consistent with cirrhosis. 2. Manifestations of portal hypertension (large amount of ascites, recanalized umbilical vein). 3. Diffuse wall thickening of the colon, increased from prior study. A likely cause for this is portal hypertensive colopathy. Infection and inflammatory bowel disease are alternate possibilities. CT Chest: Attestation: I personally reviewed and interpreted this imaging study as follows: Radiologist's impression: IMPRESSION: 1. No pulmonary emboli identified. 2. Moderate atelectasis and/or consolidation in the left lower lobe at the lung base. 3. Small left pleural effusion. CXR: Attestation: I personally reviewed and interpreted this imaging study as follows: My impression: MPRESSION: 1. Mild left basilar airspace opacity (atelectasis and/or consolidation), new compared to 09/07/2020. 2. Small left pleural effusion, new compared to 09/07/2020. Radiologist's impression: MPRESSION: 1. Mild left basilar airspace opacity (atelectasis and/or consolidation), new compared to 09/07/2020. 2. Small left pleural effusion, new compared to 09/07/2020. EKG Data^: EKG 1: Attestation: I personally reviewed and interpreted this EKG as follows: EKG interpretation date: 03/30/21 EKG interpretation time: 07:04 Prior EKG tracings: not available for review Interpretation: Sinus rhythm with a heart rate of 90 nonspecific EKG changes Computer generated interpretation: Chest X-Ray 03/30/21 06:35 IMPRESSION: 1. Mild left basilar airspace opacity (atelectasis and/or consolidation), new compared to 09/07/2020. 2. Small left pleural effusion, new compared to 09/07/2020. Chest/Abdomen/Pelvis CT 03/30/21 06:35 IMPRESSION: 1. Mild nodularity of the liver contour, consistent with cirrhosis. 2. Manifestations of portal hypertension (large amount of ascites, recanalized umbilical vein). 3. Diffuse wall thickening of the colon, increased from prior study. A likely cause for this is portal hypertensive colopathy. Infection and inflammatory bowel disease are alternate possibilities. Radiation Dose CTDIVOL = (mGy): DLP = 1017.22~1017.22 (mGy-cm) Discharge Plan Discharge Clinical Impression: Cirrhosis of liver with ascites, Acute hyponatremia, History of deep vein thrombosis, Abdominal pain, Pleural effusion associated with hepatic disorder Condition: Stable Prescriptions: No Action Eliquis 5 mg tablet 5 mg PO BID RF: 0 pantoprazole 40 mg tablet,delayed release (DR/EC) 40 mg PO DAILY RF: 0 levothyroxine 100 mcg Tablet 100 mcg PO DAILY RF: 0 Referrals: Che Flores DO [Primary Care Provider] - Patient Instructions: Abdominal Pain (ED) Coding Level of Care Code ED Director Of Corporate Responsibility for Chg Fwd Exam Comprehensive
[2021-03-30 06:46] LABS: Basophils # 0.1 10^3/uL (0.0-0.1); Eosinophils # 0.1 10^3/uL (0.0-0.8); Hematocrit 31.3 % (37.0-47.0); Hemoglobin 11.5 g/dL (11.5-15.3); Lymphocytes # 1.4 10^3/uL (0.8-4.8); Lymphocytes % 19.7 %; Mean Corpuscular HGB Conc 36.7 g/dL (30.0-36.0); Mean Corpuscular Hemoglobin 37.1 pg (28.0-34.0); Monocytes # 0.8 10^3/uL (0.2-0.9); Monocytes % 10.4 %; Neutrophils # 4.85 10^3/uL (1.8-7.7); Neutrophils % 67.3 %; Nucleated Red Blood Cells % 0 %; Platelet Count 215 10^3/cmm (130-400); Red Cell Distribution Width 13.9 % (12.1-15.1); White Blood Count 7.2 10^3/uL (4.0-10.0)
[2021-03-30 06:59] LABS: INR 1.46 (0.8-1.2)
[2021-03-30 07:00] LABS: Partial Thromboplastin Time 39.3 SECONDS (23.9-36.7)
[2021-03-30 07:08] LABS: Troponin(5th) Baseline 17 ng/L (0-10)
[2021-03-30 07:15] LABS: Alanine Aminotransferase 27 U/L (0-33); Albumin Level 2.7 g/dL (3.5-5.2); Alkaline Phosphatase 114 IU/L (35-105); Aspartate Amino Transferase 93 U/L (0-32); Blood Urea Nitrogen 4 mg/dL (6-20); Calcium 7.8 mg/dL (8.5-10.5); Carbon Dioxide 23 mmol/L (22-29); Chloride 78 mmol/L (98-107); Globulin 2.7 g/dL (1.3-4.6); Glomerular Filtration Rate 167.6 mL/min (90-130); Glucose 94 mg/dL (65-115); Lipase 27 U/L (13-60); NT Pro B Type Natriuretic Pept 812 pg/mL (0-125); Osmolality Calculated 233 mOsm/kg (285-295); Total Bilirubin 1.5 mg/dL (0.15-1.2); Total Protein 5.4 g/dL (6.6-8.7)
[2021-03-30 07:16] LABS: Alcohol Level < 10 mg/dL (0-10)
[2021-03-30 07:19] LABS: Sodium 113 mmol/L (136-145)
[2021-03-30 07:22] LABS: Add Urine Microscopic? NO; Charge for UA Resulting for Rev
[2021-03-30 07:33] LABS: Bilirubin Urine Neg (Negative); Blood Urine Neg (Negative); Glucose Urine UA Norm (Normal); Ketones Urine Negative (Negative); Leukocyte Esterase Urine Negative (Negative); Nitrate Urine Negative (Negative); Protein Urine Neg (Negative); Specific Gravity, Urine 1.015 (1.005-1.030); Urine Appearance Clear (CLEAR); Urine Color Yellow (Yellow); Urobilinogen Urine Norm (Negative); pH Urine 5 (5-7)
[2021-03-30] MEDS: iohexol 350 mg/mL 100 mL Btl IV (07:43)
[2021-03-30] MEDS: FUROsemide 10 mg/mL SDV 10mL 80 MG IVP (08:05)
[2021-03-30 12:06] LABS: Troponin 5 2HR 17.08 ng/L (0-10); Troponin 5 2HR Delta 0.08 ABS# (0-10)
--- NOTE | 2021-03-30 12:36 | ECG_ITS ---
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 Measurements Intervals [place] Rate: 89 P: 75 AR: 161 QRS: 73 QRSD: 88 T: 63 QT: 393 QTc: 481 Interpretive Statements SINUS RHYTHM NONSPECIFIC ST & T-WAVE ABNORMALITY Compared to ECG 03/30/2021 06:59:40 No significant changes Electronically Signed On 03-30-2021 16:50:00 CDT by Luan Burns M.D. [id number]
[2021-03-30 13:23] LABS: Troponin 5 6HR 19.86 ng/L (0-10); Troponin 5 6HR Delta 2.86 ng/L (0-12)
[2021-03-30 17:37] LABS: Alanine Aminotransferase 28 U/L (0-33); Albumin Level 2.5 g/dL (3.5-5.2); Alkaline Phosphatase 104 IU/L (35-105); Anion Gap 17.6 (5-19); Aspartate Amino Transferase 89 U/L (0-32); Blood Urea Nitrogen 5 mg/dL (6-20); Carbon Dioxide 21 mmol/L (22-29); Chloride 80 mmol/L (98-107); Globulin 2.9 g/dL (1.3-4.6); Glomerular Filtration Rate 167.6 mL/min (90-130); Glucose 93 mg/dL (65-115); Osmolality Calculated 237 mOsm/kg (285-295); Potassium 3.6 mmol/L (3.5-5.1); Total Bilirubin 1.6 mg/dL (0.15-1.2); Total Protein 5.4 g/dL (6.6-8.7)
--- NOTE | 2021-03-30 17:45 | PM.HP ---
Providers/Chief Complaint Admitting Physician: Lucina Price MD Primary Care Provider: Che Flores DO Chief Complaint: abd pain History of Present Illness Hortencia Mckeon is a 50 year old female with PMH as outlined below presenting with worsening abdominal distension for the last 3-4 weeks along with abdominal pain. Found to have + fluid thrill, underwent CT abdomen which showed new cirrhosis, ascites. She has been on treatment with Eliquis for LE DVT since Sep 2020. On most recent LE doppler, the DVT was improving,though still present. h/o alcohol consumption+, multiple beers per day. Labs notable for hyponatremia 113, asymptomatic. Review of Systems General: Reports: 10 or more systems reviewed and unremarkable except in HPI and below Const: Denies: fever(s), chills or body aches Eyes: Denies: change in vision, blurry vision or photophobia ENMT: Reports: hoarseness; Denies: throat pain, enlarged tonsils, odynophagia or nasal congestion Card: Denies: chest pain, palpitations, irregular heart rhythm, edema, swelling of feet/ankles, lightheadedness, pre-syncope, dyspnea on exertion or orthopnea Resp: Denies: dyspnea, productive cough, non-productive cough, wheezing, stridor, pain on inspiration, change in phlegm color, hemoptysis or chest congestion GI: Denies: abdominal pain, nausea, vomiting, hematemesis, coffee ground emesis, dysphagia, heartburn, diarrhea, constipation, GI cramping, change in stool character, hematochezia or melena : Denies: flank pain, difficulty voiding, dysuria, urinary frequency, urinary urgency, urinary hesitancy or hematuria Musc: Denies: neck pain, back pain, extremity pain, joint swelling, joint warmth or deformity Neuro: Denies: headache(s), numbness in extremities, weakness in extremities, sensory changes, difficulty walking, frequent falls, dizziness, vertigo, behavioral changes, Slurred speech present or seizure-like activity Psych: Denies: anxiety, depression, suicidal ideation or homicidal ideation Endo: Denies: polyuria, polydipsia, tired all the time, cold intolerance or hot flashes Oniel/Lymph: Denies: easy bruising or easy bleeding Medications/Allergies Home Medications Medication Instructions Recorded Confirmed Last Taken Type levothyroxine 100 mcg PO DAILY 09/07/20 03/30/21 03/30/21 History 0600 apixaban 5 mg tablet 5 mg PO BID 02/28/21 03/30/21 03/28/21 History 5 mg pantoprazole 40 mg tablet,delayed 40 mg PO DAILY 02/28/21 03/30/21 03/28/21 History release Allergies Allergy/AdvReac Type Severity Reaction Status Date / Time No Known Allergies Allergy Verified 03/22/21 17:04 PFSH Acute PFSH: Medical History (Updated 03/31/21 @ 14:23 by Lucina Price MD) Abdominal pain GERD (gastroesophageal reflux disease) Hypothyroidism Mild acid reflux Surgical History (Updated 03/31/21 @ 14:21 by Lucina Price MD) History of hip replacement History of hip surgery 3 screws placed Family History Other CAD (coronary artery disease) Cancer Lupus Denies family history of Chronic kidney disease (CKD) Anesthesia complication Bleeding disorder Social History Smoking and tobacco status: current every day smoker cigarettes Alcohol intake: current Alcohol intake frequency: 3 or more drinks per day Alcohol type: beer History of recent travel: No Vitals/I&O/Wt Last Vital Signs Temp 98.7 F 03/30/21 16:00 Pulse 96 03/30/21 17:30 Resp 20 H 03/30/21 17:30 BP 85/58 03/30/21 17:30 Pulse Ox 95 03/30/21 17:30 Weight last 48 hrs Weight 56.245 kg Physical Exam Narrative: EXAM NARRATIVE: General: No acute distress, AO x3 HEENT: PERRLA, pupils bilaterally equal and reactive, pallors not present Chest: Normal vesicular breath sounds, no added sounds, equal good air entry bilaterally CVS: S1-S2 regular, no murmurs, no tachycardia, no gallops, no rubs Abdomen: Soft, distended, Fluid thrill+ Neuro: No focal deficits, no facial deformity, AO x3, power 5/5 in all limbs Extremities: 2+ B/L pitting edema Data : 03/31/21 05:15 03/31/21 10:35 Attestation for Other Data: I personally reviewed and interpreted the following: Other data: Laboratory Results WBC 6.6 10^3/uL (4.0-10.0) 03/31/21 05:15 RBC 2.68 10^6/uL (4.1-5.3) L 03/31/21 05:15 Hgb 9.9 g/dL (11.5-15.3) L 03/31/21 05:15 Hct 27.0 % (37.0-47.0) L 03/31/21 05:15 MCV 100.7 fL (81-99) H 03/31/21 05:15 MCH 36.9 pg (28.0-34.0) H 03/31/21 05:15 MCHC 36.7 g/dL (30.0-36.0) H 03/31/21 05:15 RDW 13.9 % (12.1-15.1) 03/31/21 05:15 Plt Count 177 10^3/cmm (130-400) 03/31/21 05:15 MPV 9.2 fL (7.4-10.4) 03/31/21 05:15 Neut % (Auto) 64.3 % 03/31/21 05:15 Lymph % (Auto) 21.0 % 03/31/21 05:15 Hill % (Auto) 11.2 % 03/31/21 05:15 Eos % (Auto) 2.4 % 03/31/21 05:15 Baso % (Auto) 0.9 % 03/31/21 05:15 Neut # (Auto) 4.27 10^3/uL (1.8-7.7) 03/31/21 05:15 Lymph # (Auto) 1.4 10^3/uL (0.8-4.8) 03/31/21 05:15 Hill # (Auto) 0.7 10^3/uL (0.2-0.9) 03/31/21 05:15 Eos # (Auto) 0.2 10^3/uL (0.0-0.8) 03/31/21 05:15 Baso # (Auto) 0.1 10^3/uL (0.0-0.1) 03/31/21 05:15 Nucleated RBC % (auto) 0 % 03/31/21 05:15 Nucleated RBCs # 0.0 /100WBC 03/31/21 05:15 PT 18.10 SECONDS (12.1-14.9) H 03/30/21 06:30 INR 1.46 (0.8-1.2) H 03/30/21 06:30 APTT 39.3 SECONDS (23.9-36.7) H 03/30/21 06:30 Sodium 117 mmol/L (136-145) L* 03/31/21 10:35 Potassium 3.4 mmol/L (3.5-5.1) L 03/31/21 10:35 Chloride 84 mmol/L (98-107) L 03/31/21 10:35 Carbon Dioxide 24 mmol/L (22-29) 03/31/21 10:35 Anion Gap 12.4 (5-19) 03/31/21 10:35 BUN 6 mg/dL (6-20) 03/31/21 10:35 Creatinine 0.4 mg/dL (0.5-0.9) L 03/31/21 10:35 GFR Calculation 167.6 mL/min (90-130) H 03/31/21 10:35 Glucose 96 mg/dL (65-115) 03/31/21 10:35 Calculated Osmolality 241 mOsm/kg (285-295) L 03/31/21 10:35 Calcium 7.4 mg/dL (8.5-10.5) L 03/31/21 10:35 Total Bilirubin 1.1 mg/dL (0.15-1.2) 03/31/21 10:35 AST 67 U/L (0-32) H 03/31/21 10:35 ALT 20 U/L (0-33) 03/31/21 10:35 Alkaline Phosphatase 91 IU/L (35-105) 03/31/21 10:35 Troponin T Baseline 17 ng/L (0-10) H 03/30/21 06:30 Troponin T 120 Minute 17.08 ng/L (0-10) H 03/30/21 08:59 Delta Troponin T 0.08 ABS# (0-10) 03/30/21 08:59 Troponin T Hi Sens 6Hr 19.86 ng/L (0-10) H 03/30/21 12:57 Troponin T Hi Sens 6Hr Delta 2.86 ng/L (0-12) 03/30/21 12:57 NT-Pro-B Natriuret Pep 812 pg/mL (0-125) H 03/30/21 06:30 Total Protein 5.3 g/dL (6.6-8.7) L 03/31/21 10:35 Albumin 2.3 g/dL (3.5-5.2) L 03/31/21 10:35 Globulin 3.0 g/dL (1.3-4.6) 03/31/21 10:35 Lipase 27 U/L (13-60) 03/30/21 06:30 Urine Color Yellow (Yellow) 03/30/21 07:11 Urine Appearance Clear (CLEAR) 03/30/21 07:11 Urine pH 5 (5-7) 03/30/21 07:11 Ur Specific [place] 1.015 (1.005-1.030) 03/30/21 07:11 Urine Protein Neg (Negative) 03/30/21 07:11 Urine Glucose (UA) Norm (Normal) 03/30/21 07:11 Urine Ketones Negative (Negative) 03/30/21 07:11 Urine Blood Neg (Negative) 03/30/21 07:11 Urine Nitrate Negative (Negative) 03/30/21 07:11 Urine Bilirubin Neg (Negative) 03/30/21 07:11 Urine Urobilinogen Norm mg/dL (Negative) 03/30/21 07:11 Ur Leukocyte Esterase Negative (Negative) 03/30/21 07:11 Ur Random Sodium < 10 mmol/L 03/30/21 07:11 Ur Random Potassium 20 mmol/L 03/30/21 07:11 Ur Random Chloride < 10 mmol/L 03/30/21 07:11 Urine Creatinine 53 mg/dL (28-217) 03/30/21 07:11 Acetaminophen < 5.0 ug/mL (10-30) L 03/30/21 12:57 Ethyl Alcohol < 10 mg/dL (0-10) 03/30/21 06:30 Hepatitis A IgM Ab Non-reactive (Nonreactive) 03/30/21 06:30 Hep Bs Antigen Non-reactive (Nonreactive) 03/30/21 06:30 Hep Bs Antibody < 3.5 (11.5-1000) L 03/30/21 06:30 Hep B Core Total Ab Non-reactive (Nonreactive) 03/30/21 06:30 Hepatitis C Antibody Non-reactive (Nonreactive) 03/30/21 06:30 Impressions Chest X-Ray 03/30/21 06:35 IMPRESSION: 1. Mild left basilar airspace opacity (atelectasis and/or consolidation), new compared to 09/07/2020. 2. Small left pleural effusion, new compared to 09/07/2020. Chest/Abdomen/Pelvis CT 03/30/21 06:35 IMPRESSION: 1. Mild nodularity of the liver contour, consistent with cirrhosis. 2. Manifestations of portal hypertension (large amount of ascites, recanalized umbilical vein). 3. Diffuse wall thickening of the colon, increased from prior study. A likely cause for this is portal hypertensive colopathy. Infection and inflammatory bowel disease are alternate possibilities. Radiation Dose CTDIVOL = (mGy): DLP = 1017.22~1017.22 (mGy-cm) A&P Assessment and plan (1) Cirrhosis of liver with ascites: Newly diagnosed May be related to alcohol related cirrhosis given history of heavy alcohol consumption over the last several years. Associated signs of portal hypertension additionally noted. Check hepatitis serology, CON screen given family history of lupus and also likely hypercoagulable state given history of unprovoked DVT Hold Eliquis, change to Lovenox 1 mg/kg every 12 hours, hold 12 hours prior to paracentesis. Ordered for ultrasound-guided paracentesis on 04/01/2021 Obtain ascitic fluid analysis, Gram stain and culture No overt signs of spontaneous bacterial peritonitis at this time. Status: Acute Qualifiers: Hepatic cirrhosis type: unspecified hepatic cirrhosis Qualified Code(s): K74.60 - Unspecified cirrhosis of liver; R18.8 - Other ascites (2) Alcohol dependence: Monitor for signs of withdrawal Status: Acute Qualifiers: Substance use status: other alcohol-induced disorder Qualified Code(s): F10.288 - Alcohol dependence with other alcohol-induced disorder (3) Acute hyponatremia: Sodium noted to be 113, no mental status changes noted at this time. This may be related to hypervolemia from anasarca. Check urine osmolality, urine lites, urine creatinine Fluid restriction to 1200 cc/day Monitor sodium every 6 hours. Lasix 80 mg IV given in the ER. We will repeat after monitoring kidney function and electrolytes. Status: Acute (4) History of deep vein thrombosis: Currently on Eliquis 5 mg twice daily since September for treatment of lower extremity DVT. As of most recent Doppler 2 weeks ago, lower extremity DVT was improving though still persisting. Change anticoagulation to Lovenox 1 mg/kg every 12 hours, hold 12 hours prior to paracentesis. Status: Acute (5) Pleural effusion associated with hepatic disorder: Expect to improve after paracentesis Status: Acute (6) GERD (gastroesophageal reflux disease): Continue Protonix Status: Acute Qualifiers: Esophagitis presence: esophagitis presence not specified Qualified Code(s): K21.9 - Gastro-esophageal reflux disease without esophagitis Additional A&P Information DVT prophylaxis: Currently on therapeutic Lovenox Full code Attestations Medical Necessity Statement*: Will need greater than 2 midnight admission for paracentesis, newly diagnosed cirrhosis, treatment of hyponatremia, close monitoring of sodium. 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
[2021-03-30 17:55] LABS: Acetaminophen < 5.0 ug/mL (10-30); Sodium 115 mmol/L (136-145)
[2021-03-30 18:00] LABS: Hepatitis A Antibody IgM Non-Reactive (Nonreactive); Hepatitis B Core AB, Total Non-Reactive (Nonreactive); Hepatitis B Surface Antigen Non-Reactive (Nonreactive); Hepatitis C Virus Antibody Non-Reactive (Nonreactive)
[2021-03-30 18:05] LABS: Hepatitis B Surface AB < 3.5 (11.5-1000)
[2021-03-30] MEDS: pantoprazole DR 40 mg Tablet PO (18:09)
[2021-03-30] MEDS: albumin 12.5 GM/250 ML VIAL IV (18:09)
[2021-03-30] MEDS: enoxaparin 60 mg/0.6 mL Syringe 50 MG SUBCUT (18:09)
[2021-03-30 22:56] LABS: Potassium, Radom Urine 20 mmol/L; Urine Creatinine 53 mg/dL (28-217)
[2021-03-30 23:33] LABS: Urine Random Chloride < 10 mmol/L; Urine Random Sodium < 10 mmol/L
[2021-03-31] VITALS (31 sets, daily range): BP systolic 77–105; BP diastolic 49–73; PULSE 80–106; RESP 11–29; TEMP 36.5–36.8; O2SAT 93–99
[2021-03-31] MEDS: enoxaparin 60 mg/0.6 mL Syringe 50 MG SUBCUT (05:01)
[2021-03-31 05:33] LABS: Basophils # 0.1 10^3/uL (0.0-0.1); Basophils % 0.9 %; Eosinophils # 0.2 10^3/uL (0.0-0.8); Eosinophils % 2.4 %; Hemoglobin 9.9 g/dL (11.5-15.3); Lymphocytes # 1.4 10^3/uL (0.8-4.8); Mean Corpuscular HGB Conc 36.7 g/dL (30.0-36.0); Mean Corpuscular Hemoglobin 36.9 pg (28.0-34.0); Mean Corpuscular Volume 100.7 fL (81-99); Mean Platelet Volume 9.2 fL (7.4-10.4); Monocytes # 0.7 10^3/uL (0.2-0.9); Monocytes % 11.2 %; Neutrophils # 4.27 10^3/uL (1.8-7.7); Neutrophils % 64.3 %; Nucleated Red Blood Cells % 0 %; Platelet Count 177 10^3/cmm (130-400); Red Blood Count 2.68 10^6/uL (4.1-5.3); Red Cell Distribution Width 13.9 % (12.1-15.1); White Blood Count 6.6 10^3/uL (4.0-10.0)
[2021-03-31 05:54] LABS: Alanine Aminotransferase 22 U/L (0-33); Albumin Level 2.5 g/dL (3.5-5.2); Alkaline Phosphatase 101 IU/L (35-105); Anion Gap 12.4 (5-19); Aspartate Amino Transferase 66 U/L (0-32); Blood Urea Nitrogen 6 mg/dL (6-20); Calcium 7.6 mg/dL (8.5-10.5); Carbon Dioxide 25 mmol/L (22-29); Chloride 84 mmol/L (98-107); Globulin 2.5 g/dL (1.3-4.6); Glomerular Filtration Rate 129.6 mL/min (90-130); Glucose 88 mg/dL (65-115); Osmolality Calculated 243 mOsm/kg (285-295); Potassium 3.4 mmol/L (3.5-5.1); Total Bilirubin 1.1 mg/dL (0.15-1.2)
[2021-03-31 06:02] LABS: Sodium 118 mmol/L (136-145)
[2021-03-31] MEDS: pantoprazole DR 40 mg Tablet PO ×2 (08:04→17:03)
[2021-03-31] MEDS: levothyroxine 100 mcg Tablet PO (08:04)
[2021-03-31 11:00] LABS: Alanine Aminotransferase 20 U/L (0-33); Albumin Level 2.3 g/dL (3.5-5.2); Alkaline Phosphatase 91 IU/L (35-105); Aspartate Amino Transferase 67 U/L (0-32); Blood Urea Nitrogen 6 mg/dL (6-20); Calcium 7.4 mg/dL (8.5-10.5); Carbon Dioxide 24 mmol/L (22-29); Chloride 84 mmol/L (98-107); Glomerular Filtration Rate 167.6 mL/min (90-130); Glucose 96 mg/dL (65-115); Osmolality Calculated 241 mOsm/kg (285-295); Total Bilirubin 1.1 mg/dL (0.15-1.2); Total Protein 5.3 g/dL (6.6-8.7)
[2021-03-31 11:02] LABS: Anion Gap 12.4 (5-19); Potassium 3.4 mmol/L (3.5-5.1)
[2021-03-31 11:03] LABS: Sodium 117 mmol/L (136-145)
[2021-03-31] MEDS: FUROsemide 10 mg/mL SDV 4mL 40 MG IVP (11:36)
[2021-03-31] MEDS: lidocaine 1% 5 ML in potassium chloride premix 100 ML 25 ML IV (11:36)
[2021-03-31] MEDS: albumin 12.5 GM/250 ML VIAL IV (12:18)
--- NOTE | 2021-03-31 14:32 | PM.PN ---
Subjective Subjective: Interval history: no acute interim events, Na improving to 117 Medications: Reviewed: Yes Vitals/I&O/Wt Last Vital Signs Temp 98.3 F 03/31/21 04:00 Pulse 89 03/31/21 12:30 Resp 14 03/31/21 12:30 BP 95/67 03/31/21 12:30 Pulse Ox 98 03/31/21 12:30 03/30/21 03/31/21 03/31/21 22:59 06:59 14:59 Intake Total 370 / 370 1210 / 1210 Output Total 150 / 150 200 / 350 900 / 900 Balance 220 / 220 -200 / 20 310 / 310 Weight last 48 hrs Weight 56.245 kg Physical Exam Narrative: EXAM NARRATIVE: General: No acute distress, AO x3 HEENT: PERRLA, pupils bilaterally equal and reactive, pallors not present Chest: Normal vesicular breath sounds, no added sounds, equal good air entry bilaterally CVS: S1-S2 regular, no murmurs, no tachycardia, no gallops, no rubs Abdomen: Soft, distended, Fluid thrill+ Neuro: No focal deficits, no facial deformity, AO x3, power 5/5 in all limbs Extremities: 2+ B/L pitting edema Data : 03/31/21 05:15 03/31/21 10:35 A&P Assessment and plan (1) Cirrhosis of liver with ascites: Newly diagnosed May be related to alcohol related cirrhosis given history of heavy alcohol consumption over the last several years. Associated signs of portal hypertension additionally noted. hepatitis serology negative, CON screen pending continue Lovenox 1 mg/kg every 12 hours, hold 12 hours prior to paracentesis. Ordered for ultrasound-guided paracentesis on 04/01/2021 Obtain ascitic fluid analysis, Gram stain and culture No overt signs of spontaneous bacterial peritonitis at this time lasix 40mg iv x 1 Status: Acute Qualifiers: Hepatic cirrhosis type: unspecified hepatic cirrhosis Qualified Code(s): K74.60 - Unspecified cirrhosis of liver; R18.8 - Other ascites (2) Alcohol dependence: Monitor for signs of withdrawal Status: Acute Qualifiers: Substance use status: other alcohol-induced disorder Qualified Code(s): F10.288 - Alcohol dependence with other alcohol-induced disorder (3) Acute hyponatremia: Sodium noted to be 113 upon admission, improved to 117 No mental status changes noted This may be related to hypervolemia from anasarca. Check urine osmolality, urine lytes, urine creatinine Fluid restriction to 1200 cc/day Monitor sodium every 6 hours. Lasix 80 mg IV given in the ER, repeat 40mg iv today. Replete potassium We will repeat after monitoring kidney function and electrolytes. Status: Acute (4) History of deep vein thrombosis: Continue Lovenox 1 mg/kg every 12 hours, hold 12 hours prior to paracentesis. Status: Acute (5) Pleural effusion associated with hepatic disorder: Expect to improve after paracentesis Status: Acute (6) GERD (gastroesophageal reflux disease): Continue Protonix Status: Acute Qualifiers: Esophagitis presence: esophagitis presence not specified Qualified Code(s): K21.9 - Gastro-esophageal reflux disease without esophagitis Additional A&P Information DVT prophylaxis: Currently on therapeutic Lovenox Full code Attestations Medical Necessity Statement*: closely monitor Na, paracentesis in am Coding Level of Care Code Acute [employer] Chair for [facility] Fwd Diagnoses Cirrhosis of liver with ascites K74.60; R18.8 Hepatic cirrhosis type: unspecified hepatic cirrhosis Alcohol dependence F10.288 Substance use status: other alcohol-induced disorder Acute hyponatremia E87.1 History of deep vein thrombosis Z86.718 Pleural effusion associated with hepatic disorder K76.9; J91.8 GERD (gastroesophageal reflux disease) K21.9 Esophagitis presence: esophagitis presence not specified
[2021-03-31] MEDS: potassium chloride ER 20 mEq Tablet 40 MEQ PO (15:42)
--- NOTE | 2021-03-31 17:03 | USCV_ITS ---
Hortencia Mckeon Age: 50 Gender: F : 1970 Exam Date: 03/31/2021 09:48 Ordering Phys: Lucina Price MD Technologist: Maricel Arteaga Exam Location: [facility] – [place] Indication: New anasarca, evaluate for CHF BP: 78 / 54 HR: 92 Rhythm: Sinus Technical Quality: Fair MEASUREMENTS (Male / Female) Normal Values 2D ECHO LV Diastolic Diameter PLAX 4.6 cm 4.2 - 5.9 / 3.9 - 5.3 cm LV Systolic Diameter PLAX 3.1 cm LV Chamber Size 4.4 cm IVS Diastolic Thickness 1.0 cm 0.6 - 1.0 / 0.6 - 0.9 cm IVS Systolic Thickness 1.5 cm LVPW Diastolic Thickness 0.8 cm 0.6 - 1.0 / 0.6 - 0.9 cm LVPW Systolic Thickness 0.9 cm RV Chamber Size 2.3 cm LVOT Diameter 1.9 cm LV Ejection Fraction 2D Teich 60.8 % LV Ejection Fraction MOD 2C 69.1 % LV Ejection Fraction 2C AL 70.6 % LA Diameter 2.7 cm LA Width 3.2 cm LA Height 4.6 cm RA Width 2.4 cm RA Height 4.1 cm Aorta at Sinotubular Diameter 3.0 cm M-MODE LV Diastolic Diameter MM 4.9 cm 4.2 - 5.9 / 3.9 - 5.3 cm LV Systolic Diameter MM 3.3 cm LV Ejection Fraction MM Teich 59.6 % IVS Diastolic Thickness MM 1.0 cm 0.6 - 1.0 / 0.6 - 0.9 cm IVS Systolic Thickness MM 1.3 cm LVPW Diastolic Thickness MM 0.8 cm 0.6 - 1.0 / 0.6 - 0.9 cm LVPW Systolic Thickness MM 1.4 cm Aortic Annulus Diameter 3.2 cm LA Ao Ratio MM 0.9 MV E Point Septal Separation 1.0 cm DOPPLER AV Peak Velocity 118.0 cm/s LVOT Peak Velocity 106.0 cm/s AV Area Cont Eq vti 2.4 cm squared AV Area Cont Eq pk 2.6 cm squared MV Area PHT 3.3 cm squared Mitral E to A Ratio 1.0 MV E' Velocity 37.5 cm/s Mitral E to MV E' Ratio 6.2 Mitral E to LV E' Lateral Ratio 5.5 Mitral E to LV E' Septal Ratio 7.3 TR Peak Velocity 245.0 cm/s TR Peak Gradient 24.0 mmHg TV Peak E Velocity 47.0 cm/s Right Atrial Pressure 3.0 mmHg Pulmonary Artery Systolic Pressu 27.0 mmHg FINDINGS Left Ventricle Normal left ventricular size. LV systolic function is normal with EF of 55-60%. No regional wall motion abnormalities. Normal diastolic filling pattern. Right Ventricle The right ventricle is normal in size and function. Right Atrium The right atrium is normal in size. Left Atrium The left atrium is normal in size. Mitral Valve Structurally normal mitral valve without significant stenosis or prolapse. There is mild mitral regurgitation. Aortic Valve Structurally normal aortic valve without significant sclerosis or stenosis. There is no aortic regurgitation. Tricuspid Valve Structurally normal tricuspid valve without significant stenosis. Trace regurgitation. Insufficient TR jet to calculate RVSP Pulmonic Valve Structurally normal pulmonic valve without significant stenosis. There is no pulmonic regurgitation. Pericardium Normal pericardium without effusion. Aorta Normal ascending aorta dimension. CONCLUSIONS LV systolic function is normal with EF of 55-60% Diatolic function is normal Mild mitral regurgitation Trace tricuspid regurgitation No comparison studies are available Luan Burns MD (Electronically Signed) Final Date: 31 Mar 2021 14:23 S
[2021-04-01] VITALS (9 sets, daily range): BP systolic 84–91; BP diastolic 43–55; PULSE 86–98; RESP 15–17; TEMP 36.6–37.2; O2SAT 95–96
[2021-04-01 05:37] LABS: Basophils # 0.1 10^3/uL (0.0-0.1); Basophils % 1.1 %; Eosinophils # 0.1 10^3/uL (0.0-0.8); Eosinophils % 1.6 %; Hematocrit 26.7 % (37.0-47.0); Hemoglobin 9.6 g/dL (11.5-15.3); Lymphocytes # 1.4 10^3/uL (0.8-4.8); Lymphocytes % 25.9 %; Mean Corpuscular Hemoglobin 36.9 pg (28.0-34.0); Mean Corpuscular Volume 102.7 fL (81-99); Mean Platelet Volume 9.3 fL (7.4-10.4); Monocytes # 0.5 10^3/uL (0.2-0.9); Monocytes % 9.2 %; Neutrophils % 61.7 %; Nucleated Red Blood Cells % 0 %; Platelet Count 168 10^3/cmm (130-400); Red Cell Distribution Width 14.7 % (12.1-15.1); White Blood Count 5.5 10^3/uL (4.0-10.0)
--- NOTE | 2021-04-01 05:38 | PC.NURSE ---
SHIFT SUMMARY Has rested well. NPO this am for US guided paracentesis to be done today. Abd is distended but soft and denies any tenderness. BM tonight. Gets up to BSC with SBA. Says is weak. Remains on 1200ml fluid restriction. Is wondering about getting IVC filter placed while she is here. Says has had DVT in right leg since September and cannot do GI testing while on blood thinners.
[2021-04-01 06:00] LABS: Alanine Aminotransferase 16 U/L (0-33); Albumin Level 2.4 g/dL (3.5-5.2); Alkaline Phosphatase 81 IU/L (35-105); Anion Gap 11.9 (5-19); Aspartate Amino Transferase 53 U/L (0-32); Blood Urea Nitrogen 5 mg/dL (6-20); Calcium 7.5 mg/dL (8.5-10.5); Carbon Dioxide 26 mmol/L (22-29); Chloride 89 mmol/L (98-107); Globulin 2.6 g/dL (1.3-4.6); Glomerular Filtration Rate 129.6 mL/min (90-130); Glucose 78 mg/dL (65-115); Osmolality Calculated 252 mOsm/kg (285-295); Potassium 3.9 mmol/L (3.5-5.1); Sodium 123 mmol/L (136-145); Total Bilirubin 1.1 mg/dL (0.15-1.2)
[2021-04-01 06:09] LABS: Slide Review Slide Review Perform
[2021-04-01] MEDS: levothyroxine 100 mcg Tablet PO (09:05)
[2021-04-01] MEDS: pantoprazole DR 40 mg Tablet PO ×2 (09:05→18:19)
[2021-04-01 10:10] LABS: INR 1.18 (0.8-1.2)
--- NOTE | 2021-04-01 11:04 | US_ITS ---
WS: [id number] ULTRASOUND-GUIDED THERAPEUTIC AND DIAGNOSTIC PARACENTESIS Procedure, risks, and complications have been explained to the patient. Consent is obtained. Utilizing aseptic technique and 1% buffered lidocaine, a small dermatome was made through which a 5 F rench Yueh catheter was inserted. Approximately 3300 ml of clear peritoneal fluid was obtained witho ut difficulty. No complications encountered. Peritoneal fluid collected for analysis as requested. US/US paracentesis abd w [id number] IMPRESSION: Uncomplicated paracentesis yielding 3300 ml of peritoneal fluid.
[2021-04-01 11:58] LABS: COMPLEMENT COMPONENT C3C 83 mg/dL (83-193); COMPLEMENT COMPONENT C4C 12 mg/dL (15-57)
[2021-04-01 12:33] LABS: CENTROMERE B ANTIBODY <1.0 NEG AI (<1.0 NEG); JO-1 ANTIBODY <1.0 NEG AI (<1.0 NEG); RNP ANTIBODY <1.0 NEG AI (<1.0 NEG); SCL-70 ANTIBODY <1.0 NEG AI (<1.0 NEG); SJOGREN'S ANTIBODY (SS-A) <1.0 NEG AI (<1.0 NEG); SM ANTIBODY <1.0 NEG AI (<1.0 NEG); SS-B <1.0 NEG AI (<1.0 NEG)
--- NOTE | 2021-04-01 13:11 | P.PN_ITS ---
Subjective Subjective: Interval history: No acute event overnight.S/P U/S Guided Paracentesis. S/P 3.6 Ls Pale Yellow Medications: Reviewed: Yes Vitals/I&O/Wt Last Vital Signs Temp 98.2 F 04/01/21 11:36 Pulse 91 04/01/21 11:36 Resp 16 04/01/21 11:36 BP 90/55 04/01/21 11:36 Pulse Ox 96 04/01/21 11:36 03/31/21 04/01/21 04/01/21 22:59 06:59 14:59 Intake Total 225 / 1435 120 / 1555 0 / 0 Output Total 400 / 1300 150 / 1450 Balance -175 / 135 -30 / 105 0 / 0 Physical Exam Const: COMMON NORMALS: patient oriented x3 HENMT: COMMON NORMALS: normocephalic and atraumatic HEAD & SCALP: normocephalic and atraumatic Chest: CHEST: Yes Symmetrical chest wall rise Resp: COMMON NORMALS: clear to auscultation bilaterally EFFORT & INSPECTION: Yes symmetric chest movement AUSCULTATION: clear to auscultation bilaterally Cardio: COMMON NORMALS: regular rate, regular rhythm, S1 normal heart sound present, S2 normal heart sound present, No gallops present (Cardio), No murmurs present (Cardio), No rub (Cardio) and Peripheral pulses 2+ throughout RATE: regular rate RHYTHM: regular rhythm HEART SOUNDS: S1 normal heart sound present and S2 normal heart sound present PERIPHERAL PULSES: Peripheral pulses 2+ throughout GI: AUSCULTATION: Yes normoactive bowel sounds RECTAL EXAM: deferred OTHER: Soft, distended, Fluid thrill+ Extremity: COMMON NORMALS: no clubbing, cyanosis or edema and no pedal edema Neuro: COMMON NORMALS: patient oriented x3 Data : 04/01/21 04:51 04/01/21 04:51 A&P Assessment and plan (1) Cirrhosis of liver with ascites: Newly diagnosed May be related to alcohol related cirrhosis given history of heavy alcohol consumption over the last several years. Associated signs of portal hypertension additionally noted. hepatitis serology negative, CON screen pending continue Lovenox 1 mg/kg every 12 hours, hold 12 hours prior to paracentesis. Ordered for ultrasound-guided paracentesis on 04/01/2021 Obtain ascitic fluid analysis, Gram stain and culture No overt signs of spontaneous bacterial peritonitis at this time lasix 40mg iv x 1 Status: Acute Qualifiers: Hepatic cirrhosis type: unspecified hepatic cirrhosis Qualified Code(s): K74.60 - Unspecified cirrhosis of liver; R18.8 - Other ascites (2) Alcohol dependence: Monitor for signs of withdrawal Status: Acute Qualifiers: Substance use status: other alcohol-induced disorder Qualified Code(s): F10.288 - Alcohol dependence with other alcohol-induced disorder (3) Acute hyponatremia: Sodium noted to be 113 upon admission, improved to 117 No mental status changes noted This may be related to hypervolemia from anasarca. Check urine osmolality, urine lytes, urine creatinine Fluid restriction to 1200 cc/day Monitor sodium every 6 hours. Lasix 80 mg IV given in the ER, repeat 40mg iv today. Replete potassium We will repeat after monitoring kidney function and electrolytes. Status: Acute (4) History of deep vein thrombosis: Continue Lovenox 1 mg/kg every 12 hours, hold 12 hours prior to paracentesis. Status: Acute (5) Pleural effusion associated with hepatic disorder: Expect to improve after paracentesis Status: Acute (6) GERD (gastroesophageal reflux disease): Continue Protonix Status: Acute Qualifiers: Esophagitis presence: esophagitis presence not specified Qualified Code(s): K21.9 - Gastro-esophageal reflux disease without esophagitis Additional A&P Information DVT prophylaxis: Currently on therapeutic Lovenox Full code Attestations Medical Necessity Statement*: Patient needs to be in hospital for the management of Decompensated Liver cirrhosis. Coding Level of Care Code Acute Medical Cost Consultant for [facility] Fwd Diagnoses Cirrhosis of liver with ascites K74.60; R18.8 Hepatic cirrhosis type: unspecified hepatic cirrhosis Alcohol dependence F10.288 Substance use status: other alcohol-induced disorder Acute hyponatremia E87.1 History of deep vein thrombosis Z86.718 Pleural effusion associated with hepatic disorder K76.9; J91.8 GERD (gastroesophageal reflux disease) K21.9 Esophagitis presence: esophagitis presence not specified
[2021-04-01 13:30] LABS: Mononuclear #, Pertinoneal Fl 0.031 10^3/uL; Polynuclear # Cells, Perit 0.005 10^3/uL
[2021-04-01 13:31] LABS: Color, Peritoneal Fluid Pale Yellow (Pale Yellow)
[2021-04-01 13:32] LABS: Appearance, Peritoneal Fluid Hazy (Clear)
[2021-04-01 13:33] LABS: Pathology Referral Yes; RBC Pertioneal Fluid 0 10^3/uL; WBC Peritoneal Fluid 36 /uL
[2021-04-01 13:38] LABS: Osmolality Urine 155 mOsm/kg (50-1200)
[2021-04-01 13:55] LABS: Albumin Peritoneal Fluid 0.5 g/dL; Amylase Peritoneal Fluid 20 U/L (88-109); Total Protein Peritoneal Fluid 0.8 g/dL; Triglycerides,Peritoneal Fluid 65 mg/dL
[2021-04-01 14:42] LABS: ANA SCREEN, IFA NEGATIVE (NEGATIVE); THYROID PEROXIDASE ANTIBODIES <1 IU/mL (<9)
[2021-04-01 15:18] LABS: COMPLEMENT, TOTAL (CH50) 55 U/mL (31-60)
[2021-04-01] MEDS: midodrine 5 mg TABLET 10 MG PO ×2 (16:22→20:38)
--- NOTE | 2021-04-01 18:17 | PC.RESP ---
SMOKING CESSATION INFORMATION SENT TO PATIENT.
[2021-04-02] VITALS (7 sets, daily range): BP systolic 92–127; BP diastolic 47–85; PULSE 89–101; RESP 15–18; TEMP 36.7–37.8; O2SAT 90–99
[2021-04-02] MEDS: midodrine 5 mg TABLET 10 MG PO (08:53)
[2021-04-02] MEDS: enoxaparin 60 mg/0.6 mL Syringe 50 MG SUBCUT ×2 (08:53→21:40)
[2021-04-02] MEDS: levothyroxine 100 mcg Tablet PO (08:54)
[2021-04-02] MEDS: pantoprazole DR 40 mg Tablet PO ×2 (08:54→17:16)
[2021-04-02 12:36] LABS: Basophils # 0.1 10^3/uL (0.0-0.1); Basophils % 0.8 %; Eosinophils % 0.5 %; Hematocrit 25.3 % (37.0-47.0); Hemoglobin 8.9 g/dL (11.5-15.3); Lymphocytes # 0.9 10^3/uL (0.8-4.8); Lymphocytes % 13.4 %; Mean Corpuscular HGB Conc 35.2 g/dL (30.0-36.0); Mean Corpuscular Hemoglobin 36.8 pg (28.0-34.0); Mean Corpuscular Volume 104.5 fL (81-99); Mean Platelet Volume 9.2 fL (7.4-10.4); Monocytes # 0.6 10^3/uL (0.2-0.9); Neutrophils # 5.05 10^3/uL (1.8-7.7); Nucleated Red Blood Cells % 0 %; Platelet Count 158 10^3/cmm (130-400); Red Blood Count 2.42 10^6/uL (4.1-5.3); Red Cell Distribution Width 15.2 % (12.1-15.1); White Blood Count 6.6 10^3/uL (4.0-10.0)
--- NOTE | 2021-04-02 12:48 | P.PN_ITS ---
Subjective Subjective: Interval history: No acute event overnight.Patient deny any abdominal pain, nausea, vomiting,dark stool, BRBPR. Hematuria.Continue to remain Afebrile.Continue to have good urine output. Medications: Reviewed: Yes Vitals/I&O/Wt Last Vital Signs Temp 99.5 F 04/02/21 11:01 Pulse 99 04/02/21 11:01 Resp 15 04/02/21 11:01 BP 105/56 04/02/21 11:01 Pulse Ox 95 04/02/21 11:01 04/01/21 04/02/21 04/02/21 22:59 06:59 14:59 Intake Total 440 / 440 200 / 640 440 / 440 Output Total 0 / 0 100 / 100 Balance 440 / 440 100 / 540 440 / 440 Physical Exam Const: COMMON NORMALS: patient oriented x3 HENMT: COMMON NORMALS: normocephalic and atraumatic HEAD & SCALP: normocephalic and atraumatic Chest: CHEST: Yes Symmetrical chest wall rise Resp: COMMON NORMALS: clear to auscultation bilaterally EFFORT & INSPECTION: Yes symmetric chest movement AUSCULTATION: clear to auscultation bilaterally Cardio: COMMON NORMALS: regular rate, regular rhythm, S1 normal heart sound present, S2 normal heart sound present, No gallops present (Cardio), No murmurs present (Cardio), No rub (Cardio) and Peripheral pulses 2+ throughout RATE: regular rate RHYTHM: regular rhythm HEART SOUNDS: S1 normal heart sound present and S2 normal heart sound present PERIPHERAL PULSES: Peripheral pulses 2+ throughout GI: AUSCULTATION: Yes normoactive bowel sounds RECTAL EXAM: deferred OTHER: Soft, distended, Fluid thrill+ Extremity: COMMON NORMALS: no clubbing, cyanosis or edema and no pedal edema Neuro: COMMON NORMALS: patient oriented x3 Data : 04/02/21 12:13 04/02/21 12:13 A&P Assessment and plan (1) Cirrhosis of liver with ascites: Newly diagnosed May be related to alcohol related cirrhosis given history of heavy alcohol consumption over the last several years. Associated signs of portal hypertension additionally noted. hepatitis serology negative, CON:Negative , JO1: Nega, SSA , SSB : Negative, Brunson Ab : Negative, LINE CONSTRUCTION SUPERVISOR : Negative, Scl -70 :Negative, Anti -dS DNA :Pending , Centomere B ab : Negative, Complement Study : C3C, C4C, CH50 :Normal except for C4c being low : As complement Production is a liver function it can be low in cirrhosis. Ascitic fluid analysis : SAAG : 1.9 in line with cirrhotic portal hypertension. Ascitic fluid: WBC:36 Ascitic fluid: Cytology: Negative for malignant cells, benign reactive mesothelial cells, lymphocytes, and abundant proteinaceous debris's with rare fragmented red blood cells. Spironlactone 50 MG PO BID Will Initiate Lasix 40 mg po Daily. Patient will Need Output EGD for Esophageal Varices evaluation and possible colonscopy at some point.Once She is More clinically Stable. She was told that she will need to Follow Up with G/I ( Dough Maker as outpatient ) (MELD-Na : 18 ) Status: Acute Qualifiers: Hepatic cirrhosis type: unspecified hepatic cirrhosis Qualified Code(s): K74.60 - Unspecified cirrhosis of liver; R18.8 - Other ascites (2) Alcohol dependence: Monitor for signs of withdrawal Status: Acute Qualifiers: Substance use status: other alcohol-induced disorder Qualified Code(s): F10.288 - Alcohol dependence with other alcohol-induced disorder (3) Acute hyponatremia: Sodium noted to be 113 upon admission, improved to 128 No mental status changes noted This may be related to hypervolemia from anasarca. Check urine osmolality, urine lytes, urine creatinine Fluid restriction to 1200 cc/day Monitor sodium every 6 hours. Lasix 80 mg IV given in the ER, repeat 40mg iv given earlier . Replete potassium We will repeat after monitoring kidney function and electrolytes. Status: Acute (4) History of deep vein thrombosis: Continue Lovenox 1 mg/kg every 12 hours Status: Acute (5) Pleural effusion associated with hepatic disorder: Expect to improve after paracentesis Status: Acute (6) GERD (gastroesophageal reflux disease): Continue Protonix Status: Acute Qualifiers: Esophagitis presence: esophagitis presence not specified Qualified Code(s): K21.9 - Gastro-esophageal reflux disease without esophagitis Additional A&P Information DVT prophylaxis: Currently on therapeutic Lovenox Full code Attestations Medical Necessity Statement*: Patient needs to be in hospital for the management of Decompensated Liver Cirrhosis. Coding Level of Care Code Acute Dial Equipment Engineer for [facility] Fwd Diagnoses Cirrhosis of liver with ascites K74.60; R18.8 Hepatic cirrhosis type: unspecified hepatic cirrhosis Alcohol dependence F10.288 Substance use status: other alcohol-induced disorder Acute hyponatremia E87.1 History of deep vein thrombosis Z86.718 Pleural effusion associated with hepatic disorder K76.9; J91.8 GERD (gastroesophageal reflux disease) K21.9 Esophagitis presence: esophagitis presence not specified
--- NOTE | 2021-04-02 12:52 | PC.NURSE ---
AT APPROX. 1230 PTS IV STARTED LEAKING, DR. LICONA MADE ROUNDS AT THIS TIME AND OKAYED PTS IV TO STAY OUT.
[2021-04-02 13:02] LABS: Alanine Aminotransferase 11 U/L (0-33); Albumin Level 4.3 g/dL (3.5-5.2); Alkaline Phosphatase 62 IU/L (35-105); Anion Gap 14.2 (5-19); Aspartate Amino Transferase 37 U/L (0-32); Blood Urea Nitrogen 5 mg/dL (6-20); Calcium 8.3 mg/dL (8.5-10.5); Carbon Dioxide 25 mmol/L (22-29); Chloride 92 mmol/L (98-107); Globulin 1.9 g/dL (1.3-4.6); Glomerular Filtration Rate 129.6 mL/min (90-130); Glucose 110 mg/dL (65-115); Osmolality Calculated 264 mOsm/kg (285-295); Potassium 3.2 mmol/L (3.5-5.1); Sodium 128 mmol/L (136-145); Total Bilirubin 1.1 mg/dL (0.15-1.2); Total Protein 6.2 g/dL (6.6-8.7)
[2021-04-02] MEDS: spironolactone 25 mg Tablet 50 MG PO (17:16)
[2021-04-02] MEDS: potassium chloride ER 20 mEq Tablet 40 MEQ PO (17:35)
[2021-04-03] VITALS (7 sets, daily range): BP systolic 92–107; BP diastolic 43–64; PULSE 100–116; RESP 17–21; TEMP 36.8–37.7; O2SAT 90–99
[2021-04-03 06:11] LABS: Basophils # 0.1 10^3/uL (0.0-0.1); Basophils % 0.9 %; Eosinophils % 0.6 %; Hematocrit 23.8 % (37.0-47.0); Hemoglobin 8.3 g/dL (11.5-15.3); Lymphocytes # 1.1 10^3/uL (0.8-4.8); Lymphocytes % 19.9 %; Mean Corpuscular HGB Conc 34.9 g/dL (30.0-36.0); Mean Corpuscular Hemoglobin 36.6 pg (28.0-34.0); Mean Corpuscular Volume 104.8 fL (81-99); Mean Platelet Volume 9.3 fL (7.4-10.4); Monocytes # 0.7 10^3/uL (0.2-0.9); Monocytes % 11.9 %; Neutrophils # 3.61 10^3/uL (1.8-7.7); Neutrophils % 66.3 %; Nucleated Red Blood Cells % 0 %; Platelet Count 151 10^3/cmm (130-400); Red Blood Count 2.27 10^6/uL (4.1-5.3); Red Cell Distribution Width 15.6 % (12.1-15.1); White Blood Count 5.4 10^3/uL (4.0-10.0)
[2021-04-03 06:31] LABS: Alanine Aminotransferase 10 U/L (0-33); Albumin Level 3.6 g/dL (3.5-5.2); Alkaline Phosphatase 52 IU/L (35-105); Anion Gap 11.6 (5-19); Aspartate Amino Transferase 31 U/L (0-32); Blood Urea Nitrogen 4 mg/dL (6-20); Calcium 8.1 mg/dL (8.5-10.5); Carbon Dioxide 25 mmol/L (22-29); Chloride 95 mmol/L (98-107); Globulin 1.8 g/dL (1.3-4.6); Glomerular Filtration Rate 129.6 mL/min (90-130); Glucose 104 mg/dL (65-115); Osmolality Calculated 263 mOsm/kg (285-295); Potassium 3.6 mmol/L (3.5-5.1); Sodium 128 mmol/L (136-145); Total Bilirubin 1.3 mg/dL (0.15-1.2); Total Protein 5.4 g/dL (6.6-8.7)
[2021-04-03] MEDS: pantoprazole DR 40 mg Tablet PO ×2 (09:09→17:36)
[2021-04-03] MEDS: FUROsemide 40 mg Tablet PO ×2 (09:09→17:36)
[2021-04-03] MEDS: levothyroxine 100 mcg Tablet PO (09:09)
[2021-04-03] MEDS: spironolactone 25 mg Tablet 50 MG PO ×2 (09:09→17:36)
--- NOTE | 2021-04-03 11:53 | P.PN_ITS ---
Subjective Subjective: Interval history: No acute event overnight.Patient deny any abdominal pain, nausea, vomiting,dark stool, BRBPR. Hematuria.Continue to remain Afebrile. Medications: Reviewed: Yes Vitals/I&O/Wt Last Vital Signs Temp 98.4 F 04/03/21 11:26 Pulse 116 H 04/03/21 11:26 Resp 18 04/03/21 11:26 BP 107/64 04/03/21 11:26 Pulse Ox 99 04/03/21 11:26 04/02/21 04/03/21 04/03/21 22:59 06:59 14:59 Intake Total 600 / 1280 240 / 1520 360 / 360 Output Total 400 / 400 Balance 600 / 1280 -160 / 1120 360 / 360 Physical Exam Const: COMMON NORMALS: patient oriented x3 HENMT: COMMON NORMALS: normocephalic and atraumatic HEAD & SCALP: normocephalic and atraumatic Chest: CHEST: Yes Symmetrical chest wall rise Resp: COMMON NORMALS: clear to auscultation bilaterally EFFORT & INSPECTION: Yes symmetric chest movement AUSCULTATION: clear to auscultation bilaterally Cardio: COMMON NORMALS: regular rate, regular rhythm, S1 normal heart sound present, S2 normal heart sound present, No gallops present (Cardio), No murmurs present (Cardio), No rub (Cardio) and Peripheral pulses 2+ throughout RATE: regular rate RHYTHM: regular rhythm HEART SOUNDS: S1 normal heart sound present and S2 normal heart sound present PERIPHERAL PULSES: Peripheral pulses 2+ throughout GI: AUSCULTATION: Yes normoactive bowel sounds RECTAL EXAM: deferred OTHER: Soft, distended, Fluid thrill+ Extremity: COMMON NORMALS: no clubbing, cyanosis or edema and no pedal edema Neuro: COMMON NORMALS: patient oriented x3 Data : 04/03/21 05:27 04/03/21 05:27 A&P Assessment and plan (1) Cirrhosis of liver with ascites: Newly diagnosed May be related to alcohol related cirrhosis given history of heavy alcohol consu mption over the last several years. Associated signs of portal hypertension additionally noted. hepatitis serology negative, CON:Negative , JO1: Nega, SSA , SSB : Negative, Brunson Ab : Negative, GUEST RELATIONS COORDINATOR : Negative, Scl -70 :Negative, Anti -dS DNA :Pending , Centomere B ab : Negative, Complement Study : C3C, C4C, CH50 :Normal except for C4c being low : As complement Production is a liver function it can be low in cirrhosis. Ascitic fluid analysis : SAAG : 1.9 in line with cirrhotic portal hypertension. Ascitic fluid: WBC:36 Ascitic fluid: Cytology: Negative for malignant cells, benign reactive me sothelial cells, lymphocytes, and abundant proteinaceous debris's with rare fragmented red blood cells. Spironlactone 50 MG PO BID Lasix 40 mg po Daily. Patient will Need Output EGD for Esophageal Varices evaluation and possible colonscopy at some point.Once She is More clinically Stable. She was told that she will need to Follow Up with G/I ( Senior Peoplesoft Developer as outpatient ) (MELD-Na : 18 ) Status: Acute Qualifiers: Hepatic cirrhosis type: unspecified hepatic cirrhosis Qualified Code(s): K74.60 - Unspecified cirrhosis of liver; R18.8 - Other ascites (2) Alcohol dependence: Monitor for signs of withdrawal Status: Acute Qualifiers: Substance use status: other alcohol-induced disorder Qualified Code(s): F10.288 - Alcohol dependence with other alcohol-induced disorder (3) Acute hyponatremia: Sodium noted to be 113 upon admission, improved to 128 No mental status changes noted This may be related to hypervolemia from anasarca. Check urine osmolality, urine lytes, urine creatinine Fluid restriction to 1200 cc/day Monitor sodium every 6 hours. Lasix 80 mg IV given in the ER, repeat 40mg iv given earlier . Replete potassium We will repeat after monitoring kidney function and electrolytes. Status: Acute (4) History of deep vein thrombosis: Continue Lovenox 1 mg/kg every 12 hours Status: Acute (5) Pleural effusion associated with hepatic disorder: Expect to improve after paracentesis Status: Acute (6) GERD (gastroesophageal reflux disease): Continue Protonix Status: Acute Qualifiers: Esophagitis presence: esophagitis presence not specified Qualified Code(s): K21.9 - Gastro-esophageal reflux disease without esophagitis Additional A&P Information DVT prophylaxis: Currently on therapeutic Lovenox Full code Attestations Medical Necessity Statement*: Patient needs to be in hospital for the management of Decompensated Liver Cirrhosis. Coding Level of Care Code Acute Forensic Photographer for [facility] Fwd Diagnoses Cirrhosis of liver with ascites K74.60; R18.8 Hepatic cirrhosis type: unspecified hepatic cirrhosis Alcohol dependence F10.288 Substance use status: other alcohol-induced disorder Acute hyponatremia E87.1 History of deep vein thrombosis Z86.718 Pleural effusion associated with hepatic disorder K76.9; J91.8 GERD (gastroesophageal reflux disease) K21.9 Esophagitis presence: esophagitis presence not specified
[2021-04-03] MEDS: enoxaparin 60 mg/0.6 mL Syringe 50 MG SUBCUT (21:28)
[2021-04-04] VITALS (10 sets, daily range): BP systolic 90–98; BP diastolic 43–62; PULSE 105–115; RESP 16–18; TEMP 37.2–37.7; O2SAT 93–99
[2021-04-04 06:41] LABS: Basophils # 0.1 10^3/uL (0.0-0.1); Basophils % 0.8 %; Eosinophils # 0.2 10^3/uL (0.0-0.8); Eosinophils % 2.3 %; Hematocrit 24.4 % (37.0-47.0); Hemoglobin 8.5 g/dL (11.5-15.3); Lymphocytes # 1.7 10^3/uL (0.8-4.8); Lymphocytes % 23.4 %; Mean Corpuscular HGB Conc 34.8 g/dL (30.0-36.0); Mean Corpuscular Hemoglobin 36.3 pg (28.0-34.0); Mean Corpuscular Volume 104.3 fL (81-99); Mean Platelet Volume 9.5 fL (7.4-10.4); Monocytes # 0.9 10^3/uL (0.2-0.9); Monocytes % 12.6 %; Neutrophils # 4.44 10^3/uL (1.8-7.7); Neutrophils % 60.6 %; Nucleated Red Blood Cells % 0 %; Platelet Count 148 10^3/cmm (130-400); Red Blood Count 2.34 10^6/uL (4.1-5.3); Red Cell Distribution Width 15.5 % (12.1-15.1); White Blood Count 7.3 10^3/uL (4.0-10.0)
[2021-04-04 07:08] LABS: Alanine Aminotransferase 11 U/L (0-33); Albumin Level 3.4 g/dL (3.5-5.2); Alkaline Phosphatase 62 IU/L (35-105); Anion Gap 14.3 (5-19); Aspartate Amino Transferase 27 U/L (0-32); Blood Urea Nitrogen 6 mg/dL (6-20); Calcium 8.1 mg/dL (8.5-10.5); Carbon Dioxide 23 mmol/L (22-29); Chloride 96 mmol/L (98-107); Globulin 1.4 g/dL (1.3-4.6); Glomerular Filtration Rate 129.6 mL/min (90-130); Glucose 82 mg/dL (65-115); Osmolality Calculated 267 mOsm/kg (285-295); Potassium 3.3 mmol/L (3.5-5.1); Sodium 130 mmol/L (136-145); Total Bilirubin 1.2 mg/dL (0.15-1.2); Total Protein 4.8 g/dL (6.6-8.7)
[2021-04-04 07:41] LABS: Slide Review Slide Review Perform
[2021-04-04] MEDS: FUROsemide 40 mg Tablet PO (08:09)
[2021-04-04] MEDS: levothyroxine 100 mcg Tablet PO (08:09)
[2021-04-04] MEDS: spironolactone 25 mg Tablet 50 MG PO (08:09)
[2021-04-04] MEDS: pantoprazole DR 40 mg Tablet PO (08:09)
[2021-04-04] MEDS: enoxaparin 60 mg/0.6 mL Syringe 50 MG SUBCUT (08:09)
--- NOTE | 2021-04-04 09:39 | XR_ITS ---
WS: [id number] Exam: XR chest 1V portable [id number] Date/Time of Exam: 04/04/2021 9:41 AM Reason For Exam: SOB Comparison 03/30/2021. Small infiltrate and/or atelectasis in the right base. Remaining lung arce are clear. Small left-si ded pleural effusion noted which is increased slightly. Normal cardiomediastinal structures and bony elements. XR/XR chest 1V portable [id number] IMPRESSION: 1. Small infiltrate and/or atelectasis in the right base. 2. Small left basal pleural effusion.
[2021-04-04] MEDS: potassium chloride ER 20 mEq Tablet 40 MEQ PO (10:11)
[2021-04-04] MEDS: ipratropium-albuterol 3 mL Neb INHALATION ×2 (10:21→12:27)
--- NOTE | 2021-04-04 10:46 | PC.CHAP ---
Pastoral Care Encounter/Spiritual Assessment Type of Contact [] Declined painter and paperhanger apprentice visit [] Patient/Family/Request visit [] Outpatient visit [] Follow-up visit [] Physician referral [] Code/Alert [x] Routine visit [] Staff referral [] Actively dying [] Patient sleeping [] Family support [] [] Out of room [] Palliative care [] [x] Receiving care in room [] Pre-surgical visit [] Trauma [] Long length of stay [] ICU visit [] Other: Relational/Emotional Strength [x] Patient feels connected with others/family/visitors/staff [] Distress [] Loneliness/isolation [] Abandonment Spirituality of Patient [x] Person of Rhoda [] Attends Mormon of their [place]oda [x] Believes in Prayer [] Reads Bible or Sikhism materials [] There are Spiritual issues to be addressed [place] Interventions [x] Prayer [x] Active listening [x] Non-anxious presence [x] Spiritual/emotional support [] Crisis/trauma care [x] Spiritual counseling [] Bereavement support [] Provided bereavement packet [] Provided Bible/devotional materials [] Provided toy/stuffed animal, coloring book to patient or family member [] Provided Communion [] Anointing/[place] [] Salvation [x] Completed spiritual assessment [] Other: Impact on Illness or Injury [] Angry [] Fearful [x] Anxious [] Often cries [] Exhaustion [] Unable to work [] Unable to attend hinduism [] Unable to walk/stand [] Unable to read [] Unable to drive [] Unable to eat/drink [] Unable to sleep [] Unable to be with family [] Patient intubated [] Other: Summary feels good waiting on doctor' report has a good attitude and is going home soon Time spent with patient 10 mins
--- NOTE | 2021-04-04 11:45 | PM.DCS ---
Discharge Providers Date of Admission: 03/30/21 09:20 Date of Discharge: April 04, 2021 Attending Provider at Admission: Lucina Price MD Attending Provider at Discharge: Tom Miller MD Primary Care Provider: Che Flores DO Diagnoses at Discharge Discharge Diagnosis (1) Cirrhosis of liver with ascites: Status: Acute Qualifiers: Hepatic cirrhosis type: unspecified hepatic cirrhosis Qualified Code(s): K74.60 - Unspecified cirrhosis of liver; R18.8 - Other ascites (2) Alcohol dependence: Status: Acute Qualifiers: Substance use status: other alcohol-induced disorder Qualified Code(s): F10.288 - Alcohol dependence with other alcohol-induced disorder (3) Acute hyponatremia: Status: Acute (4) History of deep vein thrombosis: Status: Acute (5) Pleural effusion associated with hepatic disorder: Status: Acute (6) GERD (gastroesophageal reflux disease): Status: Acute Qualifiers: Esophagitis presence: esophagitis presence not specified Qualified Code(s): K21.9 - Gastro-esophageal reflux disease without esophagitis (7) Pneumonia: Status: Acute Reason for Visit Reason for Visit: abd pain Hospital Course Hospital Course 50-year-old female with past medical history hypothyroidism , GERD, dvt on Eliquis was admitted with chief complaint of worsening abdominal distension for the last 3-4 weeks along with abdominal pain. Found to have + fluid thrill, underwent CT abdomen which showed new cirrhosis, ascites. She has been on treatment with Eliquis for LE DVT since Sep 2020. On most recent LE doppler, the DVT was improving,though still present. h/o alcohol consumption+, multiple beers per day. She was admitted for the management of decompensated alcoholic liver cirrhosis s/p diagnostic and therapeutic paracentesis, with removal of 3.3 ls pale yellow ascitic ascitic fluid analysis SAAG : 1.9 in line with cirrhotic portal hypertension. Ascitic fluid: WBC:36 Ascitic fluid: Cytology: Negative for malignant cells, benign reactive mesothelial cells, lymphocytes, and abundant proteinaceous debris's with rare fragmented red blood cells. Hepatitis panel revealed prior history of resolved hepatitis B infection as hepatitis B surface antigen was negative and surface antibody was less than 3.5, hepatitis B core total antibody negative. she has no prior history of hepatitis B vaccination, hepatitis a negative, hepatitis C antibody negative. CON:Negative , JO1: Nega, SSA , SSB : Negative, Brunson Ab : Negative, AUXILIARY EQUIPMENT OPERATOR : Negative, Scl -70 :Negative, Anti -dS DNA :Pending , Centomere B ab : Negative, Complement Study : C3C, C4C, CH50 :Normal except for C4c being low : As complement Production is a liver function it can be low in cirrhosis. Patient was started on spironolactone 50 mg p.o. twice daily and Lasix 40 mg oral daily.She has denied any prior history of bright red blood per rectum, melena, hematemesis, hematuria.She will need an EGD as an outpatient As a part of the work-up to rule out esophageal varices. She will also need to follow-up with a rn urology as an outpatient her (MELD-Na : 18 ), she can be a transplant candidate in future.SHe was counseled on the importance of alcohol cessation.She was also counseled to indulge in good healthy diet preferably rich in protein with extra snacks. She was also managed for acute hypervolemic hyponatremia admission serum sodium was 113, she was kept on fluid fluid restriction, also received Lasix, at the time of discharge her serum sodium was 130. Hospital course was also complicated by development of pneumonia she was discharged on levofloxacin 500 mg p.o. daily for 5 days. She will follow Dr. Oro as an outpatient. Patient responded well to the above medical management and is being discharged in stable condition to home. Patient will continue to follow with primary care physician as an outpatient. Physical Exam Const: COMMON NORMALS: patient oriented x3 HENMT: COMMON NORMALS: normocephalic and atraumatic HEAD & SCALP: normocephalic and atraumatic Chest: CHEST: Yes Symmetrical chest wall rise Resp: COMMON NORMALS: clear to auscultation bilaterally EFFORT & INSPECTION: Yes symmetric chest movement AUSCULTATION: clear to auscultation bilaterally Cardio: COMMON NORMALS: regular rate, regular rhythm, S1 normal heart sound present, S2 normal heart sound present, No gallops present (Cardio), No murmurs present (Cardio), No rub (Cardio) and Peripheral pulses 2+ throughout RATE: regular rate RHYTHM: regular rhythm HEART SOUNDS: S1 normal heart sound present and S2 normal heart sound present PERIPHERAL PULSES: Peripheral pulses 2+ throughout GI: AUSCULTATION: Yes normoactive bowel sounds RECTAL EXAM: deferred OTHER: Soft, distended, Fluid thrill+ Extremity: COMMON NORMALS: no clubbing, cyanosis or edema and no pedal edema Neuro: COMMON NORMALS: patient oriented x3 Discharge Data Data Completed and Pending: Completed Studies During Hospitalization Category Date Time Status CT angio chest w abd pel w con Stat Cat Scan 03/30/21 06:35 Completed XR chest 1V thomas ble [id number] Routine Exams 04/04/21 09:39 Completed XR chest 1V thomas ble [id number] Stat Exams 03/30/21 06:35 Completed CV echo complete* [id number] Routine Ultrasound 03/31/21 17:03 Com[place]acent[place] bd w [id number] Routine Ultrasound 04/01/21 11:04 Completed Pending at discharge Category Date Time Status CON Profile Rheum atology Routine Lab 03/30/21 23:38 Results Complete Blood Co unt w/Auto AM LABS Lab 04/05/21 04:00 Ordered Comprehensive Met abolic Panel AM LA BS Lab 04/05/21 04:00 Ordered Cytology [PTH] Ro utine Pth 03/31/21 11:04 Received Labs from last 24 hours 04/04/21 04/04/21 06:03 06:03 WBC 7.3 RBC 2.34 L Hgb 8.5 L Hct 24.4 L MCV 104.3 H MCH 36.3 H MCHC 34.8 RDW 15.5 H Plt Count 148 MPV 9.5 Neut % (Auto) 60.6 Lymph % (Auto) 23.4 [place] % (Auto) 12.6 Eos % (Auto) 2.3 Baso % (Auto) 0.8 Neut # (Auto) 4.44 Lymph # (Auto) 1.7 [place] # (Auto) 0.9 Eos # (Auto) 0.2 Baso # (Auto) 0.1 Nucleated RBC % (a uto) 0 Nucleated RBCs # 0.0 Sodium 130 L Potassium 3.3 L Chloride 96 L Carbon Dioxide 23 Anion Gap 14.3 BUN 6 Creatinine 0.5 GFR Calculation 129.6 Glucose 82 Calculated Osmolal ity 267 L Calcium 8.1 L Total Bilirubin 1.2 AST 27 ALT 11 Alkaline Phosphata se 62 Total Protein 4.8 L Albumin 3.4 L Globulin 1.4 Vitals: Last Vital Signs Temp 99.4 F 04/04/21 07:41 Pulse 110 H 04/04/21 10:31 Resp 16 04/04/21 10:24 BP 98/62 04/04/21 07:41 Pulse Ox 98 04/04/21 10:24 Discharge Plan Discharge Patient Disposition: Home Condition: Stable Prescriptions: New furosemide 40 mg Tablet 40 mg PO DAILY@0800 30 Days Qty: 30 RF: 1 spironolactone 25 mg Tablet 50 mg PO BID 30 Days Qty: 120 RF: 1 levofloxacin 500 mg tablet 500 mg PO DAILY 5 Days RF: 0 midodrine 10 mg tablet 10 mg PO TID PRN (Reason: hypotension) Qty: 60 RF: 0 Continued Eliquis 5 mg tablet 5 mg PO BID RF: 0 pantoprazole 40 mg tablet,delayed release (DR/EC) 40 mg PO DAILY RF: 0 levothyroxine 100 mcg Tablet 100 mcg PO DAILY RF: 0 Discharge Orders: Discharge Order (Routine); Ordered 04/04/21 Ordered By: Tom Miller Referrals: Miguel Ángel Oro MD [Physician] - 04/11/21 10:30 am Shaniqua Mcallister FNP [Referring] - 04/16/21 9:30 am Discharge Diet: Low Salt Discharge Activity: Increase activity as tolerated Patient Instructions: Ascites, Spironolactone (By mouth), Furosemide (By mouth), Midodrine (By mouth), Levofloxacin (By mouth), Cirrhosis (DC), Hyponatremia (DC), Deep Venous Thrombosis (DC), Pleural Effusion (DC), Acute Abdominal Pain (DC), Abdominal Paracentesis (DC), Abdominal Pain (ED), Opioid Safety Discharge Attestations Time Spent in Discharge Care*: less than 30 min Specific Discharge Activities: educating patient, educating and/or supporting family/caregiver, discussing with pcp/other providers, discussing with case worker/social workers/dc planners, documenting/other paperwork and evaluating patient/reviewing data Status at Discharge: Cognitive status at discharge: cognitively intact, Behavioral status at discharge: cooperative, Functional status at discharge: independent ambulation Overall status at discharge: patient is back to baseline Quality Metrics Clinical Quality Measures During this hospital stay, did patient experience: None Coding Level of Care Code Acute Chg FW DC note Diagnoses Cirrhosis of liver with ascites K74.60; R18.8 Hepatic cirrhosis type: unspecified hepatic cirrhosis Alcohol dependence F10.288 Substance use status: other alcohol-induced disorder Acute hyponatremia E87.1 History of deep vein thrombosis Z86.718 Pleural effusion associated with hepatic disorder K76.9; J91.8 GERD (gastroesophageal reflux disease) K21.9 Esophagitis presence: esophagitis presence not specified Pneumonia J18.9
--- NOTE | 2021-04-04 12:26 | PC.NURSE ---
discussed discharge instructions. talked about midodrine prescription and advised patient to get a blood pressure machine and to check blood pressure daily, especially if having symptoms of hypotension (dizziness, feeling light headed). patient verablized understanding of medications, follow up appointments, and discharge instructions. heart monitor removed. patient is waiting on [facility] pharmacy to deliver their prescriptions.
--- NOTE | 2021-04-04 12:55 | PC.NURSE ---
talked to isaura at [facility] pharmacy. their computers are currently down and she states she doesn't know how long it would take for her prescriptions to be delivered. pt informed and requested for prescriptions to be sent to [facility] so she can leave. Serena Sawyer RN called prescriptions into [facility]. Dr. Miller notified. pt informed, and wheeled out.
[2021-04-05 00:38] LABS: DNA AB (DS) CRITHIDIA,IFA NEGATIVE (NEGATIVE)
== END 2021-04-04 13:22 | disposition home or self-care (01) | DRG 433 ==
LOC: ER 08:44 → ICU 09:46 → MEDSURG 03-31 12:59
PROVIDERS: Admitting Provider Student in an Organized Health Care Education/Training Program; Emergency Provider Emergency Medicine; PCP Internal Medicine; Visit Provider Internal Medicine
DX: K70.31 Alcoholic cirrhosis of liver with ascites (principal); F10.288 Alcohol dependence with other alcohol-induced disorder; E87.1 Hypo-osmolality and hyponatremia; J91.8 Pleural effusion in other conditions classified elsewhere; I82.5Z1 Chronic embolism and thrombosis of unspecified deep veins of right distal lower extremity; K76.6 Portal hypertension; K21.9 Gastro-esophageal reflux disease without esophagitis; F17.210 Nicotine dependence, cigarettes, uncomplicated; Z79.01 Long term (current) use of anticoagulants; Y90.0 Blood alcohol level of less than 20 mg/100 ml; Z86.19 Personal history of other infectious and parasitic diseases
CPT/HCPCS: 36415; 49083; 71045; 71275; 74177; 80053; 80307; 80500; 81003; 82042; 82150; 82436; 82570; 82945; 83615; 83690; 83880; 83935; 84133; 84157; 84300; 84443; 84478; 84484; 85025; 85610; 85730; 86160; 86162; 86235; 86255; 86376; 86705; 86706; 86709; 86803; 87340; 88112; 88305; 89050; 93005; 93306; 94640; 96372; 96374; 97110; 97116; 97161; 97530; 99285; J1650; J1940; J3480; P9041; P9047; Q9967

== ENCOUNTER → 2021-04-11 15:54 | Outpatient (BNVA) | payer MEDICAID, SELFPAY | PROVIDERS: PCP Internal Medicine; Visit Provider Internal Medicine | DX: E34.9 Endocrine disorder, unspecified (principal); K70.30 Alcoholic cirrhosis of liver without ascites; Z01.812 Encounter for preprocedural laboratory examination; Z12.11 Encounter for screening for malignant neoplasm of colon; R18.8 Other ascites | CPT/HCPCS: 80053; 82105; 85025 ==

== ENCOUNTER → 2021-04-16 10:29 | Outpatient (BNVA) | payer MEDICAID, SELFPAY | PROVIDERS: PCP Internal Medicine; Visit Provider Internal Medicine | DX: K70.30 Alcoholic cirrhosis of liver without ascites (principal); Z01.812 Encounter for preprocedural laboratory examination; Z20.822 Contact with and (suspected) exposure to COVID-19 | CPT/HCPCS: 87635 ==

== ENCOUNTER 2021-04-19 08:27 | Day surgery (SDC) | payer MEDICAID, SELFPAY ==
[2021-04-17 11:20] VITALS: BMI 15.9
--- NOTE | 2021-04-19 08:45 | ANES.PREANE2 ---
Pre-Anesthetic Assessment Pre-Anesthetic Assessment: Height/Weight: Height 1.78 m Weight 50.349 kg Preop Diagnosis: alcoholic cirrhosis Proposed Procedure: Operation Date: 04/19/21 09:45 Proposed Procedures p EGD/colon [id number] 10138 K70.30(Not Applicable) - Miguel Ángel Oro MD s Colonoscopy(Not Applicable) - Miguel Ángel Oro MD Familial anesthetic complications: non Was Beta [place] taken within 24 hours: N/A Was Clonidine taken within 24 hours: N/A Last intake: > 8 hrs Social: Social History: Alcohol and Tobacco Comment: no alchohol for 4 weeks Exam: Pre-Anes Outpt Exam: alert, oriented x 3, clear to auscultation bilaterally and regular rate & rhythm Airway: Cervical ROM: WNL MP: 1 Dentition: Chipped (all front teeth are broken) CV/HEM: CV/HEM: DVT (Nov ) Comments: CONCLUSIONS LV systolic function is normal with EF of 55-60% Diatolic function is normal Mild mitral regurgitation Trace tricuspid regurgitation No comparison studies are available Hepatic: Hepatic: Cirrohsis GI: GI: GERD Metabolic: Metabolic: Thyroid Anesthetic Plan: ASA status: 3 Anesthesia: MAC Risk of > 500 ml blood loss (7ml/kg in children): No Other Pertinent Information: Last menstruated 6-7 years ago PFSH Anesthesia PFSH: Medical History Abdominal pain Abdominal pain Acute hyponatremia Alcohol dependence Cirrhosis of liver with ascites GERD (gastroesophageal reflux disease) History of deep vein thrombosis Hypothyroidism Mild acid reflux Pleural effusion associated with hepatic disorder Surgical History History of hip replacement History of hip surgery 3 screws placed Family History Other CAD (coronary artery disease) Cancer Lupus Denies family history of Chronic kidney disease (CKD) Anesthesia complication Bleeding disorder Social History Smoking and tobacco status: current every day smoker cigarettes Alcohol intake: current Alcohol intake frequency: 3 or more drinks per day Alcohol type: beer History of recent travel: No Data Anesthesia Cardiac Studies: No Data to Display
--- NOTE | 2021-04-19 09:15 | P.HP_ITS ---
Same Day Surgery H&P Indication for Procedure/HPI DATE OF PROCEDURE: April 19, 2021 CHIEF COMPLAINT/INDICATIONFOR SURGICAL PROCEDURE: GERD and screening colonoscopy PREOP DIAGNOSIS: GERD and screening colonoscopy PLANNED PROCEDRUE: Operation Date: 04/19/21 09:45 Proposed Procedures p EGD/colon [id number] K70.30(Not Applicable) - Miguel Ángel Oro MD s Colonoscopy(Not Applicable) - Miguel Ángel Oro MD Medications/Allergies* Home Medications Medication Instructions Recorded Confirmed Type levothyroxine 100 mcg PO DAILY 09/07/20 04/17/21 History apixaban 5 mg tablet 5 mg PO BID 02/28/21 04/17/21 History pantoprazole 40 mg tablet,delayed 40 mg PO DAILY 02/28/21 04/17/21 History release Allergies/Adverse Reactions Allergy/AdvReac Type Severity Reaction Status Date / Time No Known Allergies Allergy Verified 04/11/21 10:42 Pertinent History/Comorbid Conditions* Medical History (Updated 04/11/21 @ 11:09 by Miguel Ángel Oro MD) Abdominal pain Abdominal pain Acute hyponatremia Alcohol dependence Cirrhosis of liver with ascites GERD (gastroesophageal reflux disease) History of deep vein thrombosis Hypothyroidism Mild acid reflux Pleural effusion associated with hepatic disorder Surgical History (Updated 03/31/21 @ 14:21 by Lucina Price MD) History of hip replacement History of hip surgery 3 screws placed Family History (Updated 02/28/21 @ 09:58 by Nona Maloney) Lupus CAD (coronary artery disease) Cancer Denies family history of Chronic kidney disease (CKD) Anesthesia complication Bleeding disorder Social History Smoking and tobacco status: current every day smoker cigarettes Alcohol intake: current Alcohol intake frequency: 3 or more drinks per day Alcohol type: beer History of recent travel: No Pertinent Exam Findings alert, oriented x 3, clear to auscultation bilaterally, regular rate & rhythm, operative site marked and procedure specific exam findings Recommendations Surgery/Procedure today Coding Level of Care Code Acute Boat Builder And Repairer for Valeriano Whatley
[2021-04-19 09:23] VITALS: BP 96/60; PULSE 93; RESP 18; TEMP 37; O2SAT 97
[2021-04-19] MEDS: sodium chloride 0.9% 1,000 ML 30 ML IV (09:28)
[2021-04-19 11:05] VITALS: BP 94/57; PULSE 81; RESP 16; TEMP 36.1; O2SAT 100
[2021-04-22 05:58] LABS: H. Pylori / CLO Test Negative
== END 2021-04-19 12:01 | disposition home or self-care (01) ==
PROVIDERS: PCP Internal Medicine; Visit Provider Internal Medicine
PROC: 0DJ08ZZ Inspection of Upper Intestinal Tract, Via Natural or Artificial Opening Endoscopic (ICD-10-PCS; CPT 43235; principal; 2021-04-19 09:45)
PROC: 0DJD8ZZ Inspection of Lower Intestinal Tract, Via Natural or Artificial Opening Endoscopic (ICD-10-PCS; CPT 45378; 2021-04-19 09:45)
DX: Z12.11 Encounter for screening for malignant neoplasm of colon (principal); D12.2 Benign neoplasm of ascending colon; D12.4 Benign neoplasm of descending colon; D12.3 Benign neoplasm of transverse colon; K29.70 Gastritis, unspecified, without bleeding; K21.9 Gastro-esophageal reflux disease without esophagitis; Z86.718 Personal history of other venous thrombosis and embolism; E03.9 Hypothyroidism, unspecified; F17.210 Nicotine dependence, cigarettes, uncomplicated
CPT/HCPCS: 43239; 45385; 87077; 88305; 96360; 96361; J2704; J7030

== ENCOUNTER → 2021-05-06 08:04 | Day surgery (SDC) | payer MEDICAID, SELFPAY ==
--- NOTE | 2021-05-06 | US_ITS ---
WS: [id number] INDICATION: Ascites paracentesis TECHNIQUE: Ultrasound abdomen 4 quadrant FINDINGS: Ultrasound utilized for paracentesis marking. Large volume ascites. US/US abdomen lmt fluid [id number] IMPRESSION: Large volume ascites.
[2021-05-06 08:27] VITALS: BP 103/65; PULSE 91; RESP 18; TEMP 36.9; O2SAT 98
[2021-05-06 10:45] VITALS: BP 99/58; PULSE 84; RESP 18; O2SAT 98
== END ==
PROVIDERS: PCP Internal Medicine; Visit Provider Internal Medicine
DX: R18.8 Other ascites (principal)
CPT/HCPCS: 36415; 49082; 76705; 85610

== ENCOUNTER 2021-05-28 22:17 | Observation (INO) | payer MEDICAID, SELFPAY ==
[2021-05-28 22:21] VITALS: BP 117/79; PULSE 92; RESP 16; TEMP 36.7; O2SAT 96; BMI 16.0
--- NOTE | 2021-05-28 23:42 | ECG_ITS ---
[facility] Test Date: 2021-05-29 Pat Name: Hortencia Mckeon Department: Room: ICU09 Gender: Female Audit Reviewer: : 1970 Requested By: Denis Rios Order Number: [id number] Lawrence MD: Luan Burns M.D. Measurements Intervals [place] Rate: 86 P: 62 IA: 144 QRS: 68 QRSD: 90 T: 72 QT: 386 QTc: 463 Interpretive Statements SINUS RHYTHM LOW QRS VOLTAGE IN PRECORDIAL LEADS [QRS DEFLECTION < 1.0 mV IN CHEST LEADS] POSSIBLE RIGHT VENTRICULAR CONDUCTION DELAY [RSR (QR) IN V1/V2] Compared to ECG 03/30/2021 09:10:40 Low QRS voltage now present T-wave abnormality no longer present Electronically Signed On 05-29-2021 18:32:58 CDT by Luan Burns M.D. [email or web address]
--- NOTE | 2021-05-28 23:42 | CTR_ITS ---
PROCEDURE INFORMATION: Exam: CT Abdomen And Pelvis With Contrast Exam date and time: 05/28/2021 11:42 PM Age: 50 years old Clinical indication: Abdominal pain; Generalized; Prior surgery; Surgery type: Hip pinning. ; Patient HX: Diffuse abd pain TECHNIQUE: Imaging protocol: Computed tomography of the abdomen and pelvis with contrast. Radiation optimization: All CT scans at this facility use at least one of these dose optimization techniques: automated exposure control; mA and/or kV adjustment per patient size (includes targeted exams where dose is matched to clinical indication); or iterative reconstruction. Contrast material: OMNI 300; Contrast volume: 75 ml; Contrast route: INTRAVENOUS (IV); COMPARISON: 1. CT angio chest w abd pel w con 2021-03-30 07:[address] chest abd pel w con* 2020-10-02 14:56 RADIATION DOSE METRICS: Total DLP (mGy-cm): 1145.45 FINDINGS: Liver: Cirrhotic liver. Gallbladder and bile ducts: Normal. No calcified stones. No ductal dilation. Pancreas: Normal. No ductal dilation. Spleen: Normal. No splenomegaly. Adrenal glands: Normal. No mass. Kidneys and ureters: Normal. No hydronephrosis. Stomach and bowel: Gastric wall thickening, correlate for gastritis. Appendix: No evidence of appendicitis. Intraperitoneal space: Large abdominal volume ascites. Vasculature: Mild to moderate aortic and iliac artery atherosclerotic calcification. Lymph nodes: Unremarkable. No enlarged lymph nodes. Urinary bladder: Unremarkable as visualized. Reproductive: Unremarkable as visualized. Bones/joints: Right femur ORIF. Moderate lumbar spondylosis. Soft tissues: Unremarkable. CT/CT abdomen pelvis w con* [id number] IMPRESSION: 1. Large abdominal volume ascites. 2. Chronic liver cirrhosis. 3. Gastric wall thickening, correlate for gastritis. Radiation Dose CTDIVOL = (mGy): DLP = 1145.45 (mGy-cm)
--- NOTE | 2021-05-28 23:43 | ED_ITS ---
HPI - Abdominal Pain General: Chief Complaint: Abdominal Pain Stated Complaint: RLQ ABD PAIN RADIATING TO RUQ Time Seen by Provider: 05/28/21 23:29 History of Present Illness: HPI narrative: This patient is a 50-year-old female who presents to the emergency department with right upper quadrant and generalized abdominal pain. Patient is significantly distended abdomen consistent with her history of cirrhosis of the liver. Patient has had to have ascites drained out the paracentesis once a month. Last was done 1 month ago. Patient denies any pain related to eating however states the pain originally started in the right upper quadrant and has persisted to the abdomen tender to the touch and abdomen is firm. Patient is very cachectic otherwise. Patient states that she no longer drinks alcohol but had a many years of alcohol abuse. Patient also smokes a half a pack per day. Patient does have a history of DVTs and currently is on Eliquis. Will do medical evaluation treat as needed. Associated Symptoms: Denies chills, dysuria, fever(s), nausea and vomiting Review of Systems General: Reports: 10 or more systems reviewed and unremarkable except in HPI and below Const: Denies: fever(s), chills, body aches or fatigue Eyes: Denies: change in vision or blurry vision ENMT: Denies: throat pain, hoarseness or mouth pain Card: Denies: chest pain, palpitations, irregular heart rhythm, edema, swelling of feet/ankles or lightheadedness Resp: Denies: dyspnea, productive cough, non-productive cough, wheezing or pain on inspiration GI: Reports: abdominal pain; Denies: nausea or vomiting : Denies: flank pain, difficulty voiding, dysuria, urinary frequency, urinary urgency or urinary hesitancy Musc: Denies: neck pain, back pain, extremity pain, extremity swelling, joint pain, joint swelling, joint redness, joint warmth or limited range of motion Skin/Breast: Denies: rash, pruritus, erythema or skin tenderness Neuro: Denies: headache(s), numbness in extremities or weakness in extremities Psych: Denies: anxiety or depression FOR[facility]LY [facility], [facility] ED PFSH: Medical History Abdominal pain Abdominal pain Acute hyponatremia Alcohol dependence Cirrhosis of liver with ascites GERD (gastroesophageal reflux disease) History of deep vein thrombosis Hypothyroidism Mild acid reflux Pleural effusion associated with hepatic disorder Surgical History History of hip replacement History of hip surgery 3 screws placed Family History Other CAD (coronary artery disease) Cancer Lupus Denies family history of Chronic kidney disease (CKD) Anesthesia complication Bleeding disorder Social History Smoking and tobacco status: current every day smoker cigarettes Alcohol intake: current Alcohol intake frequency: 3 or more drinks per day Alcohol type: beer History of recent travel: No Physical Exam Const: COMMON NORMALS: no acute distress, average body habitus, patient oriented x3, no limitations, healthy appearing, alert and well nourished HENMT: COMMON NORMALS: normocephalic, atraumatic, hearing grossly normal bilaterally, external ears normal, EAC's normal, TM's normal bilaterally, Normal external nose present, Normal nasal mucous membranes and turbinates present, moist oral mucous membranes, oropharynx normal, dentition normal and gingiva normal HEAD & SCALP: normocephalic and atraumatic NOSE: Normal external nose present and Normal nasal mucous membranes and turbinates present EXTERNAL EAR: Yes external ears normal EXTERNAL AUDITORY CANAL: EAC's normal TYMPANIC MEMBRANE: TM's normal bilaterally Neck/C-Spine: COMMON NORMALS: full ROM, no lymphadenopathy, supple, no meningeal signs, no JVD, Thyroid normal and No carotid bruits THYROID: Thyroid normal Chest: COMMONS NORMALS: normal inspection of the chest, normal palpation of entire chest wall, normal inspection of the breasts and normal palpation of the breasts Breast/axilla inspection: Yes normal inspection of the breasts BREAST/AXILLA PALPATION: Yes normal palpation of the breasts Resp: COMMON NORMALS: normal respiratory effort, No retractions, No use of accessory muscles, clear to auscultation bilaterally and percussion normal AUSCULTATION: clear to auscultation bilaterally PERCUSSION: percussion normal Cardio: COMMON NORMALS: no JVD, regular rate, regular rhythm, S1 normal heart sound present, S2 normal heart sound present, No gallops present (Cardio), No clicks present (Cardio), No murmurs present (Cardio), No rub (Cardio) and Peripheral pulses 2+ throughout RATE: regular rate RHYTHM: regular rhythm HEART SOUNDS: S1 normal heart sound present and S2 normal heart sound present PERIPHERAL PULSES: Peripheral pulses 2+ throughout GI: COMMON NORMALS: Normal to inspection, nondistended, normoactive bowel sounds present, no masses and no bruits INSPECTION: Yes abdominal distension and Yes Fluid wave present PALPATION: Yes Firmness to palpation present (GI), Yes Tenderness to palpation present (GI) (Generalized) and Yes Hepatosplenomegaly present PERCUSSION: Fluid wave present Back/Pelvis: COMMON NORMALS: thoracic and lumbar spine normal to inspection, no thoracic nor lumbar tenderness, thoraco-lumbar ROM normal and straight leg raise negative bilaterally Extremity: COMMON NORMALS: normal to inspection, full ROM, capillary refill normal, no joint enlargement, no clubbing, cyanosis or edema, no calf tenderness and no pedal edema Neuro: COMMON NORMALS: patient oriented x3 SENSORIUM/ORIENTATION: Yes alert MENINGEAL SIGNS: Yes no meningeal signs Course Reevaluation(s): Reevaluation #1: I did discuss at length with patient and family about findings and concerns. They are agreeable to be admitted to the hospital. Patient went to hold her Eliquis if any paracentesis will be performed due to her significant ascites and abdominal pain. Patient and family state understanding Time: 01:40 Consultations: Consultation #1: I did discuss at length with Dr. Medina. He agrees with admission to the patient to the floor. He will see patient write additional orders. Time: 01:41 Vital Signs: Vital signs: Vital Signs Temperature 98.1 F 05/28/21 22:21 Pulse Rate 78 05/29/21 01:00 Respiratory Rate 17 05/29/21 01:00 Blood Pressure 113/73 05/29/21 01:00 Pulse Oximetry 96 05/29/21 01:00 MDM - Abdominal Pain MDM Narrative: Medical decision making narrative: This patient is a 50-year-old female who presents to the emergency department with right upper quadrant and generalized abdominal pain. Patient is significantly distended abdomen consistent with her history of cirrhosis of the liver. Patient has had to have ascites drained out the paracentesis once a month. Last was done 1 month ago. Patient denies any pain related to eating however states the pain originally started in the right upper quadrant and has persisted to the abdomen tender to the touch and abdomen is firm. Patient is very cachectic otherwise. Patient states that she no longer drinks alcohol but had a many years of alcohol abuse. Patient also smokes a half a pack per day. Patient does have a history of DVTs and currently is on Eliquis. Will do medical evaluation treat as needed. Differential Diagnosis: Differential diagnosis abdominal pain: Likely abdominal pain, acute appendicitis, calculus of kidney, constipation, diverticulitis, endometriosis, gastroenteritis, pancreatitis and small bowel obstruction Medical Records: Attestation: I reviewed the patient's medical records. Lab Data: Attestation: I reviewed the patient's lab results. Labs: Lab Results 05/29/21 05/29/21 05/29/21 Range/Units 00:20 00:20 00:20 WBC 6.5 (4.0-10.0) 10^3/ uL RBC 3.28 L (4.1-5.3) 10^6/u L Hgb 11.6 (11.5-15.3) g/dL Hct 35.1 L (37.0-47.0) % MCV 107.0 H (81-99) fL MCH 35.4 H (28.0-34.0) pg MCHC 33.0 (30.0-36.0) g/dL RDW 14.1 (12.1-15.1) % Plt Count 314 (130-400) 10^3/c mm MPV 9.7 (7.4-10.4) fL Neut % (Auto) 60.3 % Lymph % (Auto) 26.2 % [place] % (Auto) 9.6 % Eos % (Auto) 2.5 % Baso % (Auto) 1.2 % Neut # (Auto) 3.91 (1.8-7.7) 10^3/u L Lymph # (Auto) 1.7 (0.8-4.8) 10^3/u L [place] # (Auto) 0.6 (0.2-0.9) 10^3/u L Eos # (Auto) 0.2 (0.0-0.8) 10^3/u L Baso # (Auto) 0.1 (0.0-0.1) 10^3/u L Nucleated RBC % (a uto) 0 % Nucleated RBCs # 0.0 /100WBC PT 19.30 H (12.1-14.9) SECO NDS INR 1.58 H (0.8-1.2) APTT 32.0 (23.9-36.7) SECO NDS Sodium 133 L (136-145) mmol/L Potassium 3.8 (3.5-5.1) mmol/L Chloride 100 (98-107) mmol/L Carbon Dioxide 22 (22-29) mmol/L Anion Gap 14.8 (5-19) BUN 10 (6-20) mg/dL Creatinine 0.5 (0.5-0.9) mg/dL GFR Calculation 129.6 (90-130) mL/min Glucose 101 (65-115) mg/dL Calculated Osmolal ity 275 L (285-295) mOsm/k g Calcium 8.0 L (8.5-10.5) mg/dL Total Bilirubin 0.7 (0.15-1.2) mg/dL AST 28 (0-32) U/L ALT 9 (0-33) U/L Alkaline Phosphata se 89 (35-105) IU/L Total Protein 6.0 L (6.6-8.7) g/dL Albumin 2.9 L (3.5-5.2) g/dL Globulin 3.1 (1.3-4.6) g/dL Lipase 30 (13-60) U/L Urine Color (Yellow) Urine Appearance (CLEAR) Urine pH (5-7) Ur Specific Gravit y (1.005-1.030) Urine Protein (Negative) Urine Glucose (UA) (Normal) Urine Ketones (Negative) Urine Blood (Negative) Urine Nitrate (Negative) Urine Bilirubin (Negative) Urine Urobilinogen (Negative) mg/dL Ur Leukocyte Jayshree ase (Negative) Urine RBC (0-2) /hpf Urine WBC (0-5) /hpf Ur Squamous Epith Cells (0-5) /hpf Amorphous Sediment Urine Bacteria (NONE) /hpf Urine Mucus /hpf Urine Opiates Scre en (Negative) ng/mL Ur Barbiturates Sc reen (Negative) ng/mL Ur Phencyclidine S crn (Negative) ng/mL Ur Amphetamines Sc reen (Negative) ng/mL U Benzodiazepines Scrn (Negative) ng/mL Urine Cocaine Scre en (Negative) ng/mL U Marijuana (THC) Screen (Negative) ng/mL Ethyl Alcohol < 10 (0-10) mg/dL 05/29/21 05/29/21 Range/Units 01:15 01:15 WBC (4.0-10.0) 10^3/ uL RBC (4.1-5.3) 10^6/u L Hgb (11.5-15.3) g/dL Hct (37.0-47.0) % MCV (81-99) fL MCH (28.0-34.0) pg MCHC (30.0-36.0) g/dL RDW (12.1-15.1) % Plt Count (130-400) 10^3/c mm MPV (7.4-10.4) fL Neut % (Auto) % Lymph % (Auto) % [place] % (Auto) % Eos % (Auto) % Baso % (Auto) % Neut # (Auto) (1.8-7.7) 10^3/u L Lymph # (Auto) (0.8-4.8) 10^3/u L [place] # (Auto) (0.2-0.9) 10^3/u L Eos # (Auto) (0.0-0.8) 10^3/u L Baso # (Auto) (0.0-0.1) 10^3/u L Nucleated RBC % (a uto) % Nucleated RBCs # /100WBC PT (12.1-14.9) SECO NDS INR (0.8-1.2) APTT (23.9-36.7) SECO NDS Sodium (136-145) mmol/L Potassium (3.5-5.1) mmol/L Chloride (98-107) mmol/L Carbon Dioxide (22-29) mmol/L Anion Gap (5-19) BUN (6-20) mg/dL Creatinine (0.5-0.9) mg/dL GFR Calculation (90-130) mL/min Glucose (65-115) mg/dL Calculated Osmolal ity (285-295) mOsm/k g Calcium (8.5-10.5) mg/dL Total Bilirubin (0.15-1.2) mg/dL AST (0-32) U/L ALT (0-33) U/L Alkaline Phosphata se (35-105) IU/L Total Protein (6.6-8.7) g/dL Albumin (3.5-5.2) g/dL Globulin (1.3-4.6) g/dL Lipase (13-60) U/L Urine Color Yellow (Yellow) Urine Appearance Clear (CLEAR) Urine pH 7 (5-7) Ur Specific Gravit y 1.005 (1.005-1.030) Urine Protein 1+ H (Negative) Urine Glucose (UA) Norm (Normal) Urine Ketones Negative (Negative) Urine Blood Neg (Negative) Urine Nitrate Negative (Negative) Urine Bilirubin 1+ H (Negative) Urine Urobilinogen 4 H (Negative) mg/dL Ur Leukocyte Jayshree ase Trace H (Negative) Urine RBC 0-4 H (0-2) /hpf Urine WBC 0-4 H (0-5) /hpf Ur Squamous Epith Cells 5-10 H (0-5) /hpf Amorphous Sediment Not Reportable Urine Bacteria Trace (NONE) /hpf Urine Mucus Trace /hpf Urine Opiates Scre en Negative (Negative) ng/mL Ur Barbiturates Sc reen Negative (Negative) ng/mL Ur Phencyclidine S crn Negative (Negative) ng/mL Ur Amphetamines Sc reen Negative (Negative) ng/mL U Benzodiazepines Scrn Negative (Negative) ng/mL Urine Cocaine Scre en Negative (Negative) ng/mL U Marijuana (THC) Screen Negative (Negative) ng/mL Ethyl Alcohol (0-10) mg/dL Imaging Data ^: CT Abd/Pel: Attestation: I personally reviewed and interpreted this imaging study as follows: Radiologist's impression: FINDINGS: Liver: Cirrhotic liver. Gallbladder and bile ducts: Normal. No calcified stones. No ductal dilation. Pancreas: Normal. No ductal dilation. Spleen: Normal. No splenomegaly. Adrenal glands: Normal. No mass. Kidneys and ureters: Normal. No hydronephrosis. Stomach and bowel: Gastric wall thickening, correlate for gastritis. Appendix: No evidence of appendicitis. Intraperitoneal space: Large abdominal volume ascites. Vasculature: Mild to moderate aortic and iliac artery atherosclerotic calcification. Lymph nodes: Unremarkable. No enlarged lymph nodes. Urinary bladder: Unremarkable as visualized. Reproductive: Unremarkable as visualized. Bones/joints: Right femur ORIF. Moderate lumbar spondylosis. Soft tissues: Unremarkable. CT/CT abdomen pelvis w con* [id number] IMPRESSION: 1. Large abdominal volume ascites. 2. Chronic liver cirrhosis. 3. Gastric wall thickening, correlate for gastritis. Discharge Plan Discharge Patient Disposition: Placed in Observation Clinical Impression: Ascites, Alcoholic cirrhosis of liver, Abdominal pain Condition: Stable Prescriptions: No Action Eliquis 5 mg tablet 5 mg PO BID RF: 0 spironolactone 25 mg tablet 25 mg PO ONCE 90 Days Qty: 90 RF: 3 levothyroxine 100 mcg Tablet 100 mcg PO DAILY RF: 0 midodrine 10 mg tablet 10 mg PO TID PRN (Reason: hypotension) Qty: 60 RF: 0 pantoprazole 40 mg tablet,delayed release (DR/EC) 40 mg PO BIDWM Qty: 0 RF: 0 Referrals: Che Flores DO [Primary Care Provider] - Patient Instructions: Abdominal Pain (ED) Coding Level of Care Code ED Fabric Cutter for Chg Fwd Exam Comprehensive
[2021-05-28] MEDS: iohexol 300 mg/mL 100 mL Btl IV (23:49)
[2021-05-29] VITALS (28 sets, daily range): BP systolic 86–135; BP diastolic 47–74; PULSE 69–93; RESP 15–22; TEMP 36.4–37; O2SAT 96–100; BMI 17.1
[2021-05-29 00:50] LABS: Basophils # 0.1 10^3/uL (0.0-0.1); Basophils % 1.2 %; Eosinophils # 0.2 10^3/uL (0.0-0.8); Eosinophils % 2.5 %; Hematocrit 35.1 % (37.0-47.0); Hemoglobin 11.6 g/dL (11.5-15.3); Lymphocytes # 1.7 10^3/uL (0.8-4.8); Lymphocytes % 26.2 %; Mean Corpuscular Hemoglobin 35.4 pg (28.0-34.0); Mean Platelet Volume 9.7 fL (7.4-10.4); Monocytes # 0.6 10^3/uL (0.2-0.9); Monocytes % 9.6 %; Neutrophils # 3.91 10^3/uL (1.8-7.7); Neutrophils % 60.3 %; Nucleated Red Blood Cells % 0 %; Platelet Count 314 10^3/cmm (130-400); Red Blood Count 3.28 10^6/uL (4.1-5.3); Red Cell Distribution Width 14.1 % (12.1-15.1); White Blood Count 6.5 10^3/uL (4.0-10.0)
[2021-05-29 01:07] LABS: Alanine Aminotransferase 9 U/L (0-33); Albumin Level 2.9 g/dL (3.5-5.2); Alkaline Phosphatase 89 IU/L (35-105); Aspartate Amino Transferase 28 U/L (0-32); Blood Urea Nitrogen 10 mg/dL (6-20); Carbon Dioxide 22 mmol/L (22-29); Chloride 100 mmol/L (98-107); Globulin 3.1 g/dL (1.3-4.6); Glomerular Filtration Rate 129.6 mL/min (90-130); Glucose 101 mg/dL (65-115); Lipase 30 U/L (13-60); Osmolality Calculated 275 mOsm/kg (285-295); Sodium 133 mmol/L (136-145); Total Bilirubin 0.7 mg/dL (0.15-1.2)
[2021-05-29 01:09] LABS: INR 1.58 (0.8-1.2)
[2021-05-29 01:14] LABS: Alcohol Level < 10 mg/dL (0-10)
[2021-05-29 01:15] LABS: Anion Gap 14.8 (5-19); Potassium 3.8 mmol/L (3.5-5.1)
[2021-05-29 01:31] LABS: Amphetamines Screen Urine Negative (Negative); Barbiturates Screen Urine Negative (Negative); Benzodiazepines Screen Urine Negative (Negative); Cocaine Screen Urine Negative (Negative); Opiate Screen Urine Negative (Negative); PCP Screen Urine Negative (Negative); THC Screen Urine Negative (Negative)
[2021-05-29 01:33] LABS: Add Urine Culture? No; Add Urine Microscopic? YES; Bacteria Urine TRACE /hpf; Bilirubin Urine 1+ (Negative); Blood Urine Neg (Negative); Glucose Urine UA Norm (Normal); Ketones Urine Negative (Negative); Leukocyte Esterase Urine Trace (Negative); Mucus Urine TRACE /hpf; Nitrate Urine Negative (Negative); Protein Urine 1+ (Negative); RBC Urine 0-4 /hpf (0-2); Specific Gravity, Urine 1.005 (1.005-1.030); Urine Appearance Clear (CLEAR); Urine Color Yellow (Yellow); Urobilinogen Urine 4 mg/dL (Negative); WBC Urine 0-4 /hpf (0-5); pH Urine 7 (5-7)
--- NOTE | 2021-05-29 02:46 | PM.HP ---
Providers/Chief Complaint Admitting Physician: Fausto Medina Primary Care Provider: Che Flores DO Chief Complaint: RLQ ABD PAIN RADIATING TO RUQ History of Present Illness 50-year-old female with a past medical history significant for hypothyroidism, gastroesophageal reflux disease, lower extremity DVT on Eliquis , chronic erosive gastritis, and alcoholic liver cirrhosis with subsequent recurrent ascites presented to the hospital with abdominal pain. Patient recently had a paracentesis performed on 04/01/2021 during which time 3300 cc were drained. Again 5 L were drained in April by her primary care physician. Patient denies any fever, chills, nausea vomiting. Upon arrival to hospital patient's initial vitals showed a blood pressure of 113/73, heart rate of 78, respiratory rate 17 a temperature of 98.1? with oxygen saturation of 96% on room air. Laboratory workup showed a WBC of 6.5, hemoglobin of 11.6, hematocrit 35.1 and a platelet count of 314 INR 1.58. Sodium 133, potassium 3.8, chloride 100, bicarb 22, BUN 10 and creatinine of 0.5. AST of 28, ALT of 9 and alkaline phosphatase of 89 lipase of 30 urinalysis showed trace leukocyte esterase, negative nitrates. Urine tox screen was negative. Imaging studies included CT abdomen pelvis which showed large volume of abdominal ascites, chronic liver cirrhosis and gastric wall thickening. Patients last Eliquis dose was at 8:00 p.m. on the . Review of Systems General: Reports: 10 or more systems reviewed and unremarkable except in HPI and below Medications/Allergies Home Medications Medication Instructions Recorded Confirmed Last Taken Type levothyroxine 100 mcg PO DAILY 09/07/20 05/06/21 05/05/21 History apixaban 5 mg tablet 5 mg PO BID 02/28/21 05/06/21 04/26/21 History midodrine 10 mg PO TID PRN #60 tab 04/04/21 05/06/21 05/05/21 Rx pantoprazole 40 mg PO BIDWM #0 tab 04/19/21 05/06/21 05/05/21 Rx spironolactone 25 mg tablet 25 mg PO ONCE 90 Days #90 tab 05/02/21 05/06/21 05/05/21 Rx Allergies Allergy/AdvReac Type Severity Reaction Status Date / Time No Known Allergies Allergy Verified 04/30/21 14:50 PFSH Acute PFSH: Medical History (Updated 05/29/21 @ 05:35 by Fausto Medina MD) Abdominal pain Abdominal pain Acute hyponatremia Alcohol dependence Cirrhosis of liver with ascites GERD (gastroesophageal reflux disease) History of deep vein thrombosis Hypothyroidism Mild acid reflux Pleural effusion associated with hepatic disorder Surgical History History of hip replacement History of hip surgery 3 screws placed Family History Other CAD (coronary artery disease) Cancer Lupus Denies family history of Chronic kidney disease (CKD) Anesthesia complication Bleeding disorder Social History Smoking and tobacco status: current every day smoker cigarettes Alcohol intake: current Alcohol intake frequency: 3 or more drinks per day Alcohol type: beer History of recent travel: No Vitals/I&O/Wt Last Vital Signs Temp 98.1 F 05/28/21 22:21 Pulse 78 05/29/21 01:00 Resp 17 05/29/21 01:00 BP 113/73 05/29/21 01:00 Pulse Ox 96 05/29/21 01:00 Weight last 48 hrs Weight 50.802 kg Physical Exam Narrative: EXAM NARRATIVE: General-chronically ill-appearingThin female HEENT- very poor dentition Chest -clear to auscultation bilaterally CVS -regular rate rhythm Abdomen- slight tenderness in right upper quadrant to deep palpation, large ascites, negative Miranda Extremity- no edema Data : 05/29/21 00:20 05/29/21 00:20 A&P Assessment and plan (1) Ascites due to alcoholic cirrhosis: Leading to abdominal pain NPO US guided paracentesis ordered however last dose of eliquis at 8 pm on Repeat labs in am CT abd/pelvis noted in HPI Status: Acute (2) Hypothyroidism: Levothyroxine 100 mcg PO qam Status: Acute (3) Hypotension: Midodrine 10 mg po daily Status: Acute (4) History of DVT (deep vein thrombosis): Holding eliquis for procedure. Status: Acute Attestations Medical Necessity Statement*: Anticipate less than 2 midnight stay in hospital for evaluation and treatment of abdominal pain due to ascites requiring paracentesis Time Spent in Patient Care: Greater than 35 minutes (>than 50% of time spent in counselling and/or direct pt care on unit). Coding Level of Care Code Acute Food Service Attendant for Chg Fwd Diagnoses Ascites due to alcoholic cirrhosis K70.31 Hypothyroidism E03.9 Hypotension I95.9 History of DVT (deep vein thrombosis) Z86.718
--- NOTE | 2021-05-29 03:30 | PC.NURSE ---
Transfer to ICU Patient brought from ER by stretcher and placed in ICU room 9. Patient has an IV to the right forearm and left forearm, both are saline locked at time of transfer. Patient on room air at time of transfer. All belongings (purse and shoes) were brought in with patient and left at bedside. She is alert and oriented x4. No skin issues or wounds noted at this time. Abdomen is large, round, and distended.
--- NOTE | 2021-05-29 03:54 | US_ITS ---
WS: [id number] ULTRASOUND-GUIDED PARACENTESIS CLINICAL INFORMATION: Increasing ascites COMPARISON: None. Procedure Informed consent: The risks, benefits, and alternatives of the procedure were discussed with the yari ent who agreed to proceed. Verbal and written consent was obtained. Timeout: A timeout was performed to confirm the correct patient, procedure, and site. Preparation: A suitable skin site was identified. The patient was prepped and draped in usual sterile fashion. Lidocaine 1% was used for local anesthesia. Catheter: 4 Cymraes One-step Yueh catheter. Side: Left Lower quadrant. Fluid Volume: 7000 ml Color: Ning DISPOSITION: Discarded safely. Complications: None. US/US paracentesis abd w [id number] IMPRESSION: Uncomplicated ultrasound-guided paracentesis. Removal of 7000 cc ascites
--- NOTE | 2021-05-29 06:00 | PC.NURSE ---
Transfer to [facility] Patient transferred to [facility] by bed and placed in room 270. She has a right forearm IV and a left forearm IV that are saline locked at this time. She is on room air at time of transfer. All patient belongings were transported with the patient to [facility]. No wounds or skin issues noted other than large, round, distended abdomen. Patient has no complaints of pain and is alert and oriented x4.
[2021-05-29] MEDS: levothyroxine 100 mcg Tablet PO (06:38)
--- NOTE | 2021-05-29 06:44 | PC.NURSE ---
pt received from ICU alert and oriented. pt oriented to room no requests at this time.
--- NOTE | 2021-05-29 07:15 | PC.NURSE ---
Will recheck in thirty minutes.
[2021-05-29] MEDS: pantoprazole DR 40 mg Tablet PO ×2 (08:27→17:16)
--- NOTE | 2021-05-29 10:19 | PC.PHAR ---
PT STATES SHE TAKES CARE OF HER OWN MEDICATIONS-PT BROUGHT IN MED BOTTLES-PT BROUGHT IN SPIRONOLACTONE 25MG 50MG BID AND LASIX 40MG DAILY DATED 04/04/21 PT STATES SHE IS NOT TAKING THOSE 2 MEDICATIONS-PT STATES SHE IS TAKING SPIRONOLACTONE 25MG DAILY
--- NOTE | 2021-05-29 10:20 | PC.CHAP ---
Pastoral Care Encounter/Spiritual Assessment Type of Contact [] Declined hearing therapist visit [] Patient/Family/Request visit [] Outpatient visit [] Follow-up visit [] Physician referral [] Code/Alert [x] Routine visit [] Staff referral [] Actively dying [] Patient sleeping [] Family support [] [] Out of room [] Palliative care [] [] Receiving care in room [] Pre-surgical visit [] Trauma [] Long length of stay [] ICU visit [] Other: Relational/Emotional Strength [x] Patient feels connected with others/family/visitors/staff [] Distress [] Loneliness/isolation [] Abandonment Spirituality of Patient [x] Person of Rhoda [] Attends Rastafarian of their Rhoda [x] Believes in Prayer [] Reads Bible or Denominational materials [] There are Spiritual issues to be addressed Form Setter Helper Interventions x[] Prayer [] Active listening [] Non-anxious presence [] Spiritual/emotional support [] Crisis/trauma care [] Spiritual counseling [] Bereavement support [] Provided bereavement packet [] Provided Bible/devotional materials [] Provided toy/stuffed animal, coloring book to patient or family member [] Provided Communion [] Anointing/[place] [] Salvation [x] Completed spiritual assessment [] Other: Impact on Illness or Injury [] Angry [] Fearful [x] Anxious [] Often cries [] Exhaustion [] Unable to work [] Unable to attend yarsanism [] Unable to walk/stand [] Unable to read [] Unable to drive [] Unable to eat/drink [] Unable to sleep [] Unable to be with family [] Patient intubated [] Other: Summary Time spent with patient 15 min
--- NOTE | 2021-05-29 11:54 | P.PN_ITS ---
Subjective Subjective: Interval history: Patient was seen and examined this morning she was complaining of right upper quadrant abdominal pain. Blood pressure has been on the softer side. Currently n.p.o. for ultrasound-guided paracentesis. Medications: Reviewed: Yes Vitals/I&O/Wt Last Vital Signs Temp 98.2 F 05/29/21 11:24 Pulse 69 05/29/21 11:24 Resp 17 05/29/21 11:24 BP 135/74 05/29/21 11:24 Pulse Ox 98 05/29/21 11:24 Weight last 48 hrs Weight 54.034 kg Weight 50.802 kg Physical Exam Const: COMMON NORMALS: patient oriented x3 HENMT: COMMON NORMALS: normocephalic and atraumatic HEAD & SCALP: normocephalic and atraumatic Resp: COMMON NORMALS: clear to auscultation bilaterally AUSCULTATION: clear to auscultation bilaterally Cardio: COMMON NORMALS: regular rate, regular rhythm, S1 normal heart sound present, S2 normal heart sound present, No gallops present (Cardio), No murmurs present (Cardio), No rub (Cardio) and Peripheral pulses 2+ throughout RATE: regular rate RHYTHM: regular rhythm HEART SOUNDS: S1 normal heart sound present and S2 normal heart sound present PERIPHERAL PULSES: Peripheral pulses 2+ throughout GI: COMMON NORMALS: Normal to inspection, nondistended, normoactive bowel sounds present, non-tender and no masses AUSCULTATION: Yes normoactive bowel sounds OTHER: Abdominal distention with fluid thrill, caput medusa present. Extremity: COMMON NORMALS: no clubbing, cyanosis or edema and no pedal edema Neuro: COMMON NORMALS: patient oriented x3 Data : 05/29/21 00:20 05/29/21 00:20 A&P Assessment and plan (1) Ascites due to alcoholic cirrhosis: Ascites due to decompensated liver cirrhosis secondary to alcohol abuse. Status post 6 L fluid removed. Patient tolerated the procedure well. Status post 50 gm of albumin one-time dose. Status: Acute (2) Decompensated hepatic cirrhosis: Status: Acute (3) Hypothyroidism: Levothyroxine 100 mcg PO qam Status: Acute (4) Hypotension: Midodrine 10 mg po daily Status: Acute (5) History of DVT (deep vein thrombosis): On Eliquis 5 mg po q12 h daily Status: Acute Attestations Medical Necessity Statement*: Patient needs to be in hospital for management of symptomatic ascites, hypotension, abdominal pain. Coding Level of Care Code Acute Software Reliability Engineer for Chg Fwd Diagnoses Ascites due to alcoholic cirrhosis K70.31 Decompensated hepatic cirrhosis K72.90; K74.60 Hypothyroidism E03.9 Hypotension I95.9 History of DVT (deep vein thrombosis) Z86.718
[2021-05-29] MEDS: midodrine 5 mg TABLET 10 MG PO ×2 (14:03→21:02)
[2021-05-30 04:00] VITALS: BP 92/58; PULSE 72; RESP 16; TEMP 36.8; O2SAT 98
[2021-05-30] MEDS: levothyroxine 100 mcg Tablet PO (05:48)
[2021-05-30] MEDS: spironolactone 25 mg Tablet PO (05:48)
--- NOTE | 2021-05-30 06:18 | PC.NURSE ---
SHIFT SUMMARY Says she has slept well tonight. Has had no c/o pain or discomfort. Abdomen is soft with minimal tenderness. Puncture to left lower abdomen BILINGUAL ACCOUNT MANAGER and is clean & dry. Is hoping to go home today
[2021-05-30 06:50] LABS: Basophils # 0.1 10^3/uL (0.0-0.1); Basophils % 0.9 %; Eosinophils # 0.2 10^3/uL (0.0-0.8); Eosinophils % 3.6 %; Hematocrit 27.2 % (37.0-47.0); Lymphocytes # 1.7 10^3/uL (0.8-4.8); Lymphocytes % 30.5 %; Mean Corpuscular HGB Conc 33.1 g/dL (30.0-36.0); Mean Corpuscular Hemoglobin 34.7 pg (28.0-34.0); Mean Platelet Volume 9.2 fL (7.4-10.4); Monocytes # 0.6 10^3/uL (0.2-0.9); Monocytes % 10.3 %; Neutrophils # 3.02 10^3/uL (1.8-7.7); Neutrophils % 54.5 %; Nucleated Red Blood Cells % 0 %; Platelet Count 273 10^3/cmm (130-400); Red Blood Count 2.59 10^6/uL (4.1-5.3); Red Cell Distribution Width 14.1 % (12.1-15.1); White Blood Count 5.5 10^3/uL (4.0-10.0)
[2021-05-30 07:10] LABS: INR 1.27 (0.8-1.2)
[2021-05-30 07:32] LABS: Alanine Aminotransferase < 5 U/L (0-33); Albumin Level 2.6 g/dL (3.5-5.2); Alkaline Phosphatase 54 IU/L (35-105); Anion Gap 10.5 (5-19); Aspartate Amino Transferase 16 U/L (0-32); Blood Urea Nitrogen 7 mg/dL (6-20); Calcium 7.7 mg/dL (8.5-10.5); Carbon Dioxide 24 mmol/L (22-29); Chloride 105 mmol/L (98-107); Globulin 2.2 g/dL (1.3-4.6); Glucose 90 mg/dL (65-115); Osmolality Calculated 280 mOsm/kg (285-295); Potassium 3.5 mmol/L (3.5-5.1); Sodium 136 mmol/L (136-145); Total Bilirubin 0.5 mg/dL (0.15-1.2); Total Protein 4.8 g/dL (6.6-8.7)
[2021-05-30 07:38] LABS: Procalcitonin 0.04 ng/mL (0-0.5)
[2021-05-30 07:45] VITALS: BP 103/68; PULSE 74; RESP 18; TEMP 36.9; O2SAT 96
[2021-05-30 07:58] LABS: Slide Review Slide Review Perform
[2021-05-30] MEDS: midodrine 5 mg TABLET 10 MG PO (08:40)
[2021-05-30] MEDS: pantoprazole DR 40 mg Tablet PO (08:40)
--- NOTE | 2021-05-30 09:04 | P.DS_ITS ---
Discharge Providers Date of Admission: 05/29/21 01:43 Date of Discharge: May 30, 2021 Attending Provider at Admission: Fausto Medina Attending Provider at Discharge: Tom Miller MD Primary Care Provider: Che Flores DO Diagnoses at Discharge Discharge Diagnosis (1) Ascites due to alcoholic cirrhosis: Status: Chronic (2) Decompensated hepatic cirrhosis: Status: Acute (3) Hypothyroidism: Status: Chronic (4) Hypotension: Status: Resolved (5) History of DVT (deep vein thrombosis): Status: Chronic Reason for Visit Reason for Visit: RLQ ABD PAIN RADIATING TO RUQ Hospital Course Hospital Course 50-year-old female with a past medical history significant for hypothyroidism, gastroesophageal reflux disease, lower extremity DVT on Eliquis , chronic erosive gastritis, and alcoholic liver cirrhosis with subsequent recurrent ascites presented to the hospital with abdominal pain.Upon arrival to hospital patient's initial vitals showed a blood pressure of 113/73, heart rate of 78, respiratory rate 17 a temperature of 98.1? with oxygen saturation of 96% on room air. Laboratory workup showed a WBC of 6.5, hemoglobin of 11.6, hematocrit 35.1 and a platelet count of 314 INR 1.58. Sodium 133, potassium 3.8, chloride 100, bicarb 22, BUN 10 and creatinine of 0.5. AST of 28, ALT of 9 and alkaline phosphatase of 89 lipase of 30 urinalysis showed trace leukocyte esterase, negative nitrates. Urine tox screen was negative. Imaging studies included CT abdomen pelvis which showed large volume of abdominal ascites, chronic liver cirrhosis and gastric wall thickening. Patient was admitted for management of abdominal pain likely secondary to ascites she underwent paracentesis with removal of 6 L fluid, she also received 50 g of albumin one-time dose.For her hypotension see responded well to midodrine. Upon discharge she was normotensive, Eliquis was resumed which was held for the procedure, spironolactone 25 mg p.o. daily was resumed as her blood pressure was fine, levothyroxine was continued for her hypothyroidism. She responded well to the above medical management and is being discharged in stable condition. She will continue to follow with a primary care physician as an outpatient. Physical Exam Const: COMMON NORMALS: patient oriented x3 HENMT: COMMON NORMALS: normocephalic and atraumatic HEAD & SCALP: normocephalic and atraumatic Resp: COMMON NORMALS: clear to auscultation bilaterally AUSCULTATION: clear to auscultation bilaterally Cardio: COMMON NORMALS: regular rate, regular rhythm, S1 normal heart sound present, S2 normal heart sound present, No gallops present (Cardio), No murmurs present (Cardio), No rub (Cardio) and Peripheral pulses 2+ throughout RATE: regular rate RHYTHM: regular rhythm HEART SOUNDS: S1 normal heart sound present and S2 normal heart sound present PERIPHERAL PULSES: Peripheral pulses 2+ throughout GI: COMMON NORMALS: Normal to inspection, nondistended, normoactive bowel sounds present, non-tender and no masses AUSCULTATION: Yes normoactive bowel sounds Extremity: COMMON NORMALS: no clubbing, cyanosis or edema and no pedal edema Neuro: COMMON NORMALS: patient oriented x3 Discharge Data Data Completed and Pending: Completed Studies During Hospitalization Category Date Time Status CT abdomen pelvis w con* [id number] Stat Cat Scan 05/28/21 23:42 Com[place] bd w [id number] Routine Ultrasound 05/29/21 03:54 Completed Pending at discharge Category Date Time Status Complete Blood Co unt w/Auto AM LABS Lab 05/31/21 04:00 Ordered Complete Blood Co unt w/Auto AM LABS Lab 06/01/21 04:00 Ordered Comprehensive Met abolic Panel AM LA BS Lab 05/31/21 04:00 Ordered Comprehensive Met abolic Panel AM LA BS Lab 06/01/21 04:00 Ordered Prothrombin Time INR AM LABS Lab 05/31/21 04:00 Ordered Prothrombin Time INR AM LABS Lab 06/01/21 04:00 Ordered Labs from last 24 hours 05/30/21 05/30/21 05/30/21 06:26 06:26 06:26 WBC 5.5 RBC 2.59 L Hgb 9.0 L Hct 27.2 L MCV 105.0 H MCH 34.7 H MCHC 33.1 RDW 14.1 Plt Count 273 MPV 9.2 Neut % (Auto) 54.5 Lymph % (Auto) 30.5 Mcmullen % (Auto) 10.3 Eos % (Auto) 3.6 Baso % (Auto) 0.9 Neut # (Auto) 3.02 Lymph # (Auto) 1.7 Mcmullen # (Auto) 0.6 Eos # (Auto) 0.2 Baso # (Auto) 0.1 Nucleated RBC % (a uto) 0 Nucleated RBCs # 0.0 PT 16.30 H INR 1.27 H Sodium 136 Potassium 3.5 Chloride 105 Carbon Dioxide 24 Anion Gap 10.5 BUN 7 Creatinine 0.6 GFR Calculation 105.0 Glucose 90 Calculated Osmolal ity 280 L Calcium 7.7 L Total Bilirubin 0.5 AST 16 ALT < 5 Alkaline Phosphata se 54 Total Protein 4.8 L Albumin 2.6 L Globulin 2.2 Procalcitonin 0.04 Vitals: Last Vital Signs Temp 98.4 F 05/30/21 07:45 Pulse 74 05/30/21 07:45 Resp 18 05/30/21 07:45 BP 103/68 05/30/21 07:45 Pulse Ox 96 05/30/21 07:45 Discharge Plan Discharge Patient Disposition: Home Condition: Stable Prescriptions: Continued Eliquis 5 mg tablet 5 mg PO BID RF: 0 levothyroxine 100 mcg Tablet 100 mcg PO QAM RF: 0 midodrine 10 mg tablet 10 mg PO TID PRN (Reason: hypotension) Qty: 60 RF: 0 spironolactone 25 mg tablet 25 mg PO QAM RF: 0 pantoprazole 40 mg tablet,delayed release (DR/EC) 40 mg PO BIDWM Qty: 0 RF: 0 Discharge Orders: Discharge Order (Routine); Ordered 05/30/21 Ordered By: Tom Miller Referrals: Che Flores DO [Primary Care Provider] - 07/04/21 12:00 pm Discharge Diet: Regular Discharge Activity: Resume usual activity Patient Instructions: Cirrhosis, Ascites (GEN), Abdominal Pain (ED), Opioid Safety, Paracentesis Discharge Attestations Time Spent in Discharge Care*: less than 30 min Specific Discharge Activities: educating patient, educating and/or supporting family/caregiver, discussing with pcp/other providers, discussing with patient case coordinator/social workers/dc planners, documenting/other paperwork and evaluating patient/reviewing data Status at Discharge: Cognitive status at discharge: cognitively intact , Behavioral status at discharge: cooperative , Quality Metrics Clinical Quality Measures During this hospital stay, did patient experience: None Coding Level of Care Code Acute Chg FW DC note Diagnoses Ascites due to alcoholic cirrhosis K70.31 Decompensated hepatic cirrhosis K72.90; K74.60 Hypothyroidism E03.9 Hypotension I95.9 History of DVT (deep vein thrombosis) Z86.718
--- NOTE | 2021-05-30 10:47 | PC.CHAP ---
Pastoral Care Encounter/Spiritual Assessment Type of Contact [] Declined load out worker visit [] Patient/Family/Request visit [] Outpatient visit [] Follow-up visit [] Physician referral [] Code/Alert [x] Routine visit [] Staff referral [] Actively dying [] Patient sleeping [] Family support [] [] Out of room [] Palliative care [] [x] Receiving care in room [] Pre-surgical visit [] Trauma [] Long length of stay [] ICU visit [] Other: Relational/Emotional Strength [x] Patient feels connected with others/family/visitors/staff [] Distress [] Loneliness/isolation [] Abandonment Spirituality of Patient [x] Person of Rhoda [] Attends Yarsanism of their [place] [x] Believes in Prayer [] Reads Bible or Voodoo materials [] There are Spiritual issues to be addressed Anthropology Department Chair Interventions [x] Prayer [x] Active listening [x] Non-anxious presence [x] Spiritual/emotional support [] Crisis/trauma care [x] Spiritual counseling [] Bereavement support [] Provided bereavement packet [] Provided Bible/devotional materials [] Provided toy/stuffed animal, coloring book to patient or family member [] Provided Communion [] Anointing/[place] [] Salvation [x] Completed spiritual assessment [] Other: Impact on Illness or Injury [] Angry [] Fearful [x] Anxious [] Often cries [] Exhaustion [] Unable to work [] Unable to attend alevism [] Unable to walk/stand [] Unable to read [] Unable to drive [] Unable to eat/drink [] Unable to sleep [] Unable to be with family [] Patient intubated [] Other: Summary feels good has has a good attitude going home today Time spent with patient 10 mins
[2021-05-30 11:45] VITALS: BP 95/55; PULSE 76; RESP 17; TEMP 36.8; O2SAT 95
[2021-05-30 13:18] VITALS: BP 95/55; PULSE 76; RESP 17; TEMP 36.8; O2SAT 95
--- NOTE | 2021-05-31 16:57 | PC.RESP ---
SMOKING CESSATION INFORMATION SENT TO PATIENT.
--- NOTE | 2021-05-31 17:03 | PC.RESP ---
SMOKING CESSATION INFORMATION SENT TO PATIENT.
== END 2021-05-30 12:00 | disposition home or self-care (01) ==
LOC: ER 05-29 01:42 → ICU 05-29 02:05 → MEDSURG 05-29 06:17 → ICU 05-29 06:20 → MEDSURG 05-29 06:34
PROVIDERS: Admitting Provider Hospitalist; Emergency Provider Emergency Medicine; PCP Internal Medicine; Visit Provider Internal Medicine
DX: K70.31 Alcoholic cirrhosis of liver with ascites (principal); E03.9 Hypothyroidism, unspecified; I95.9 Hypotension, unspecified; Z86.718 Personal history of other venous thrombosis and embolism; K72.90 Hepatic failure, unspecified without coma; K74.60 Unspecified cirrhosis of liver; R18.8 Other ascites; K21.9 Gastro-esophageal reflux disease without esophagitis; Z79.01 Long term (current) use of anticoagulants; Z86.711 Personal history of pulmonary embolism; F17.210 Nicotine dependence, cigarettes, uncomplicated
CPT/HCPCS: 36415; 49083; 74177; 80053; 80306; 80307; 81001; 83690; 84145; 85025; 85610; 85730; 93005; 96365; 96366; 99285; G0378; P9047; Q9967

== ENCOUNTER → 2021-07-08 11:00 | Day surgery (SDC) | payer MEDICAID, SELFPAY ==
--- NOTE | 2021-07-08 | US_ITS ---
WS: [id number] Abdominal ultrasound, limited. History: Evaluate for ascites. Comparison: None. All 4 quadrants are imaged by ultrasound to evaluate for ascites. Large amount of ascites in all 4 qu adrants. US/US abdomen limited [id number] IMPRESSION: Large amount of ascites.
[2021-07-08 11:18] VITALS: BP 98/61; PULSE 76; RESP 12; TEMP 37.2; O2SAT 99
--- NOTE | 2021-07-08 11:24 | US_ITS ---
WS: [id number] Abdominal ultrasound, limited. History: Evaluate for ascites. Comparison: None. All 4 quadrants are imaged by ultrasound to evaluate for ascites. Large amount of ascites in all 4 qu adrants.
[2021-07-08 11:25] VITALS: BMI 16.5
[2021-07-08 12:50] VITALS: BP 112/69; PULSE 81; RESP 12; O2SAT 95
== END ==
LOC: GILAB 11:06
PROVIDERS: PCP Internal Medicine; Visit Provider Internal Medicine
DX: R18.8 Other ascites (principal)
CPT/HCPCS: 49082; 49083; 76705

== ENCOUNTER 2021-10-15 09:32 | Outpatient (CLI) | payer MEDICAID, SELFPAY ==
--- NOTE | 2021-10-15 09:38 | MM_ITS ---
WS: [id number] Exam: [place] [id number] Date/Time of Exam: 10/15/2021 9:43 AM Reason For Exam: SCREENING VIEWS: MLO and CC views both breasts. No priors available for comparison. Findings: There are 2 small partially obscured nodular densities seen in the anterior central left breast on th e craniocaudal view. There is also a small asymmetric density noted deep in the central right breast on the craniocaudal view. On the right MLO view there is also a small area of increased density seen in the anterior right breast slightly below nipple level. No architectural distortion or suspicious c alcification is noted in either breast. Both breasts are heterogeneously dense. Compression spot images of both breasts recommended for further workup. MM/[place] [id number] Impression: BI-RADS: 0-Incomplete: Need additional imaging evaluation FOLLOW-UP: Need Additional Imaging. Compression spot images of both breasts rec ommended for further workup. Ultrasound may also be necessary as indicated. This mammogram was also analyzed by the Computer Aided Detection System R2 Imag e Hand Embroiderer.
== END 2021-10-15 09:33 | disposition home or self-care (01) ==
LOC: RADSHAW 09:34
PROVIDERS: PCP Internal Medicine; Visit Provider Internal Medicine
DX: Z12.31 Encounter for screening mammogram for malignant neoplasm of breast (principal)
CPT/HCPCS: 77067

== ENCOUNTER 2021-11-12 13:25 | Outpatient (CLI) | payer MEDICAID, SELFPAY ==
--- NOTE | 2021-11-12 13:32 | US_ITS ---
WS: [id number] ADDITIONAL VIEWS BILATERAL MAMMOGRAM AND LEFT BREAST ULTRASOUND ADDITIONAL VIEWS BILATERAL MAMMOGRAM HISTORY: ARMAAN BREAST ABNORMAL MAMMOGRAM COMPARISON: 10/15/2021 Right breast: The asymmetry in the posterior central RIGHT breast resolves with additional spot compr ession views. Left breast: The asymmetry in the anterior LEFT breast persists with additional views. I suspect this is just posterior and lateral to the nipple line. Ultrasound will be performed. BREAST ULTRASOUND LEFT breast ultrasound, limited. Ultrasound is directed posterior to the LEFT nipple and to the upper-outer quadrant. Ultrasound from 1:00 through 4:00 reveals there is mild prominent soft tissue thickening. No mass or increased vascul arity. No shadowing or distortion. US/US breast LT limited* [id number] IMPRESSION: BI-RADS: 2-Benign FOLLOW UP: 1 Year Follow-up Asymmetries in each breast upon further evaluation correspond to normal fibrogl andular densities. No abnormalities persist.
== END 2021-11-12 13:26 | disposition home or self-care (01) ==
LOC: RADSHAW 13:31
PROVIDERS: PCP Internal Medicine; Visit Provider Nurse Practitioner Family
DX: R92.8 Other abnormal and inconclusive findings on diagnostic imaging of breast (principal); N64.89 Other specified disorders of breast
CPT/HCPCS: 76642; 77066

== ENCOUNTER → 2022-01-08 08:30 | Outpatient (BNVA) | payer MEDICAID, SELFPAY | PROVIDERS: PCP Internal Medicine; Visit Provider Internal Medicine | DX: R76.8 Other specified abnormal immunological findings in serum (principal); R53.83 Other fatigue; D64.9 Anemia, unspecified; Z11.59 Encounter for screening for other viral diseases; F17.210 Nicotine dependence, cigarettes, uncomplicated | CPT/HCPCS: 72100 ==

== ENCOUNTER 2022-01-08 10:22 | Outpatient (CLI) | payer MEDICAID, SELFPAY ==
[2022-01-08 11:44] LABS: Hepatitis B Core AB, Total Non-Reactive (Nonreactive); Hepatitis B Surface Antigen Non-Reactive (Nonreactive); Hepatitis C Virus Antibody Non-Reactive (Nonreactive)
[2022-01-10 15:47] LABS: Immunoglobulin A 289 mg/dL (47-310)
[2022-01-11 02:02] LABS: Tissue Transglutaminase IgA Ab <1.0 U/mL; Tissue transglutaminase Ab.IgG <1.0 U/mL
[2022-01-11 02:13] LABS: Gliadin Ab.IgA <1.0 U/mL; Gliadin Ab.IgG <1.0 U/mL
[2022-01-12 22:08] LABS: Vitamin B1(Thiamin) Plas/Ser 10 nmol/L (8-30)
== END 2022-01-08 10:23 | disposition home or self-care (01) ==
PROVIDERS: PCP Internal Medicine; Visit Provider Internal Medicine
DX: R76.8 Other specified abnormal immunological findings in serum (principal); R53.83 Other fatigue; Z11.59 Encounter for screening for other viral diseases; F17.210 Nicotine dependence, cigarettes, uncomplicated; D64.9 Anemia, unspecified
CPT/HCPCS: 82784; 83516; 84425; 86704; 86803; 87340; 99204

== ENCOUNTER → 2022-01-17 10:05 | Outpatient (BNVA) | payer MEDICAID, SELFPAY | PROVIDERS: PCP Internal Medicine; Visit Provider Internal Medicine | DX: R76.8 Other specified abnormal immunological findings in serum (principal); D64.9 Anemia, unspecified; R53.83 Other fatigue; F17.210 Nicotine dependence, cigarettes, uncomplicated | CPT/HCPCS: 99214 ==

== ENCOUNTER 2022-01-23 06:57 | Outpatient (CLI) | payer MEDICAID, SELFPAY ==
--- NOTE | 2022-01-23 | USR_ITS ---
PROCEDURE INFORMATION: Exam: US Abdomen, Limited; Right Upper Quadrant Exam date and time: 01/23/2022 7:12 AM Age: 51 years old Clinical indication: Abdominal pain; Additional info: Cirrhosis of the liver with ascites TECHNIQUE: Imaging protocol: US abdomen. Real time ultrasound with image documentation. Limited exam focused on the right upper quadrant. COMPARISON: US abdomen limited [id number] 07/08/2021 11:35 AM FINDINGS: Liver: Normal. No masses. 14.7 cm Gallbladder: Dilated No gallstones. There is no gallbladder wall thickening. Common bile duct: Normal. No stones. No dilation. Pancreas: Visualized pancreas is unremarkable. Right kidney: Normal. No mass. No hydronephrosis. 10.7 cm x 3.9 cm x 5 cm. Prior examination showed diffuse ascites this finding has now resolved US/US abdomen limited [id number] IMPRESSION: No acute findings. Prior ascites has resolved
== END 2022-01-23 06:58 | disposition home or self-care (01) ==
PROVIDERS: PCP Internal Medicine; Visit Provider Internal Medicine
DX: K74.60 Unspecified cirrhosis of liver (principal); R18.8 Other ascites
CPT/HCPCS: 76705

== ENCOUNTER 2022-03-27 11:03 | Outpatient (CLI) | payer MEDICAID, SELFPAY ==
--- NOTE | 2022-03-27 11:29 | XR_ITS ---
WS: [id number] Lumbar spine, AP, lateral L5-S1 spot, lateral and flexion, extension and neutral position, both obliq ues, 03/27/2022 Clinical Data: DEGENERATIVE DISC DZ W/RADICULOPATHY Comparison: Lumbar spine, 01/08/2022. Findings: No compression fractures or subluxation is seen. No disc space narrowing is seen. The transverse proc esses and SI joints are normal. There is a levoscoliosis. On flexion and extension there is no limitation of motion or subluxation. T he oblique films show no spondylolysis. There are old right posterior ninth and 10th rib fractures. XR/XR lumbar spine 6V w f/e [id number] Impression: 1. Minimal levoscoliosis. 2. Negative for limitation of motion or subluxation on flexion or extension. 3. No spondylolysis on oblique films.
== END 2022-03-27 11:04 | disposition home or self-care (01) ==
PROVIDERS: PCP Internal Medicine; Visit Provider Internal Medicine
DX: M51.16 Intervertebral disc disorders with radiculopathy, lumbar region (principal)
CPT/HCPCS: 72114

== ENCOUNTER 2022-08-29 07:58 | Outpatient (CLI) | payer MEDICAID, SELFPAY ==
--- NOTE | 2022-08-29 | CT_ITS ---
WS: [id number] CT NECK WITH CONTRAST HISTORY: TONSIL ASYMMETRY, RIGHT tonsil is enlarged. TECHNIQUE: Contiguous 5 mm axial images are performed through the neck with intravenous contrast. Sag ittal and coronal reformats are also submitted. All CT scans at [facility] use at least one o f these dose optimization techniques: automated exposure control; mA and/or kV adjustment per patient size (includes targeted exams where dose is matched to clinical indication); or iterative reconstruc tion. CONTRAST: CONTRAST: Omnipaque 350; 95 mL IV. DLP: 215.55 mGy.cm COMPARISON: 08/21/2011 Small low-attenuation nodule with enhancing rim centered in the RIGHT palatine tonsil measures 8 x 4 mm. This could be a small tonsillar crypt or neoplasm. There are no calcifications. There is also cr y minimal asymmetry and increased enhancement in the RIGHT oropharyngeal mucosa. This is very subtle but there is slight fullness and enhancement as compared to the LEFT. Thyroid gland and salivary glands are normally enhancing with no masses. No lymphadenopathy. C3 anterolisthesis by 3 mm. C5 retrolisthesis by 3 mm. Visualized portions of the skull base demonstrate no abnormalities. Orbits and globes are within norm al limits. No soft tissue masses. Visualized paranasal sinuses and mastoid air cells are normal. Lung apices are clear. CT/CT neck w con* [id number] IMPRESSION: 1. Very subtle nodular enhancement measuring 8 x 4 mm in the RIGHT palatine to nsil. Early neoplasm versus tonsillar crypt formation. 2. Additional very mild asymmetry and increased enhancement in the RIGHT oroph aryngeal mucosa. Both of these areas can be further evaluated by ENT and direct visualization. 3. No adenopathy.
[2022-08-29] MEDS: iohexol 350 mg/mL 100 mL Btl IV (08:24)
== END 2022-08-29 07:59 | disposition home or self-care (01) ==
LOC: RAD 07:59
PROVIDERS: PCP Internal Medicine; Visit Provider Internal Medicine
DX: Q38.8 Other congenital malformations of pharynx (principal); J35.1 Hypertrophy of tonsils
CPT/HCPCS: 70491

== ENCOUNTER 2022-10-16 07:58 | Day surgery (SDC) | payer MEDICAID, SELFPAY ==
[2022-10-14 12:07] VITALS: BMI 19.3
[2022-10-16 08:13] VITALS: BP 102/75; PULSE 94; RESP 18; TEMP 36.9; O2SAT 95
[2022-10-16] MEDS: sodium chloride 0.9% 1,000 ML 30 ML IV (08:23)
--- NOTE | 2022-10-16 08:24 | ANES.PREANE2 ---
Pre-Anesthetic Assessment Height/Weight: Height 1.78 m Weight 61.235 kg Temp Pulse Resp BP Pulse Ox O2 Del Method 98.4 F 94 18 102/75 95 10/16/22 08:13 10/16/22 08:13 10/16/22 08:13 10/16/22 08:13 10/16/22 08:13 10/16/22 08:13 Preop Diagnosis: History of colon polyps Operation Date: 10/16/22 09:30 Proposed Procedures p Colonoscopy 96710,Z86.010(Not Applicable) - Bhanu Bates MD Familial anesthetic complications: none Was Beta [place] taken within 24 hours: N/A Was Clonidine taken within 24 hours: N/A Last intake: Intake Last Liquid Date 10/15/22 Last Liquid Time 22:00 Last Solid Date 10/14/22 Last Solid Time 21:30 Social Tobacco Exam alert, oriented x 3, clear to auscultation bilaterally and regular rate & rhythm Airway Submandibular: within normal limits Cervical ROM: within normal limits Mallampati: Class II Dentition: chipped, partials and full Pulmonary None reported CV/HEM Arrythmia and Hypertension blood clot on blood thinner None reported Hepatic Cirrhosis GI Gastroesophageal Reflux Disease (controlled) Metabolic Thyroid Disease Musc/skel Lower Back Pain and Osteoarthritis/DJD Neuropsych Anxiety Anesthetic Plan ASA status: 2 Anesthesia: MAC Risk of > 500 ml blood loss (7ml/kg in children): No Medications/Allergies Home Medications Medication Instructions Recorded Confirmed Last Taken Type levothyroxine 100 mcg tablet 100 mcg PO QAM 09/07/20 10/16/22 10/15/22 History apixaban 5 mg tablet (Eliquis) 5 mg PO BID 02/28/21 10/16/22 10/13/22 History midodrine 10 mg tablet 10 mg PO TID PRN hypotension #60 04/04/21 10/16/22 05/05/21 Rx tabs cholecalciferol (vitamin D3) 1,250 50,000 unit PO .Qweekly 01/08/22 10/16/22 10/02/22 History mcg (50,000 unit) capsule cyanocobalamin (vitamin B-12) 1,000 mcg IM .QOTHERMONTH 01/08/22 10/16/22 Unknown History 1,000 mcg/mL injection solution spironolactone 25 mg tablet 25 mg PO QAM #90 tabs 05/05/22 10/16/22 10/15/22 Rx escitalopram oxalate 10 mg tablet 10 mg PO DAILY 10/14/22 10/16/22 10/15/22 History (Lexapro) gabapentin 100 mg capsule 100 mg PO DAILY 10/14/22 10/16/22 10/14/22 History pantoprazole 40 mg tablet,delayed 40 mg PO DAILY 10/14/22 10/16/22 10/14/22 History release Allergies Allergy/AdvReac Type Severity Reaction Status Date / Time No Known Allergies Allergy Verified 10/16/22 09:03 Current Medications Generic Name Dose Route Start Last Admin Trade Name Freq PRN Reason Stop Dose Admin Sodium Chloride 1,000 mls @ 30 mls/hr 10/16/22 08:15 10/16/22 08:23 Sodium Chloride 0.9% IV 30 mls/hr .Q24H JOANN Administration PFSH Anesthesia Medical History Abdominal pain Abdominal pain Abdominal pain Acute hyponatremia Alcohol dependence Alcoholic cirrhosis of liver Ascites Ascites due to alcoholic cirrhosis Cirrhosis of liver with ascites Decompensated hepatic cirrhosis GERD (gastroesophageal reflux disease) History of deep vein thrombosis History of DVT (deep vein thrombosis) Hypotension Hypothyroidism Hypothyroidism Mild acid reflux Pleural effusion associated with hepatic disorder Surgical History History of hip replacement History of hip surgery 3 screws placed Family History Mother Lupus CAD (coronary artery disease) Other Cancer Heart attack Denies family history of Rheumatoid arthritis Diabetes Hyperlipidemia Chronic kidney disease (CKD) Anesthesia complication Bleeding disorder Hypertension Stroke Social History Smoking and tobacco status: current every day smoker cigarettes Packs smoked per day: 1 [ Other cigarette details: 1/2pk to 1pk QD] Alcohol intake: former History of recent travel: No Data Anesthesia Cardiac Studies: Echocardiogram Ultrasound 03/31/21
--- NOTE | 2022-10-16 09:02 | W.PM.OPSFHP ---
Same Day Surgery H&P Indication for Procedure/HPI DATE OF PROCEDURE: October 16, 2022 CHIEF COMPLAINT/INDICATIONFOR SURGICAL PROCEDURE: I am here for colonoscopy PREOP DIAGNOSIS: History of colon polyps PLANNED PROCEDURE: Operation Date: 10/16/22 09:30 Proposed Procedures p Colonoscopy 36678,Z86.010(Not Applicable) - Bhanu Bates MD 07/30/2022 This is a pleasant 51 years old female patient referred to my practice with history of colon polyps, back in 2020 undergone a colonoscopy by Dr. Oro and she did have multiple polyps and pathology did show at that time; A.? Colon, descending colon polyps , polypectomy: ? Three tubular adenomas. B.? Colon, hepatic flexure polyp , polypectomy: ?Large tubulovillous adenoma. ?No high-grade dysplasia identified. C.? Colon, ascending colon polyps , polypectomy: ? One large tubulovillous adenoma, no high grade dysplasia. ? One tubular adenoma. ? One hyperplastic polyp. Patient comes today for discussion of surveillance colonoscopy. 10/16/2022 Patient comes today for surveillance colonoscopy ROS All systems have been reviewed negative except as for the above or per problem list. Medications/Allergies* Home Medications Medication Instructions Recorded Confirmed Type levothyroxine 100 mcg tablet 100 mcg PO QAM 09/07/20 10/16/22 History apixaban 5 mg tablet (Eliquis) 5 mg PO BID 02/28/21 10/16/22 History cholecalciferol (vitamin D3) 1,250 50,000 unit PO .Qweekly 01/08/22 10/16/22 History mcg (50,000 unit) capsule cyanocobalamin (vitamin B-12) 1,000 mcg IM .QOTHERMONTH 01/08/22 10/16/22 History 1,000 mcg/mL injection solution escitalopram oxalate 10 mg tablet 10 mg PO DAILY 10/14/22 10/16/22 History (Lexapro) gabapentin 100 mg capsule 100 mg PO DAILY 10/14/22 10/16/22 History pantoprazole 40 mg tablet,delayed 40 mg PO DAILY 10/14/22 10/16/22 History release Allergies/Adverse Reactions Allergy/AdvReac Type Severity Reaction Status Date / Time No Known Allergies Allergy Verified 10/16/22 09:03 Current Medications: Generic Name Dose Route Start Last Admin Trade Name Freq PRN Reason Stop Dose Admin Sodium Chloride 1,000 mls @ 30 mls/hr 10/16/22 08:15 12 08:23 Sodium Chloride 0.9% IV 30 mls/hr .Q24H JOANN Administration Pertinent History/Comorbid Conditions* Medical History (Updated 08/01/22 @ 14:57 by Bhanu Bates MD) Abdominal pain Abdominal pain Abdominal pain Acute hyponatremia Alcohol dependence Alcoholic cirrhosis of liver Ascites Ascites due to alcoholic cirrhosis Cirrhosis of liver with ascites Decompensated hepatic cirrhosis GERD (gastroesophageal reflux disease) History of deep vein thrombosis History of DVT (deep vein thrombosis) Hypotension Hypothyroidism Hypothyroidism Mild acid reflux Pleural effusion associated with hepatic disorder Surgical History (Updated 03/31/21 @ 14:21 by Lucina Price MD) History of hip replacement History of hip surgery 3 screws placed Family History (Updated 01/08/22 @ 09:25 by Arabella Goddard LPN) Lupus Mother CAD (coronary artery disease) Mother Heart attack Cancer Denies family history of Rheumatoid arthritis Diabetes Hyperlipidemia Chronic kidney disease (CKD) Anesthesia complication Bleeding disorder Hypertension Stroke Social History Smoking and tobacco status: current every day smoker cigarettes Packs smoked per day: 1 [ Other cigarette details: 1/2pk to 1pk QD] Alcohol intake: former History of recent travel: No Pertinent Exam Findings alert, oriented x 3, regular rate & rhythm and procedure specific exam findings (Abdominal exam nontender nondistended soft) Recommendations Surgery/Procedure today (Colonoscopy with possible Bx) Coding Level of Care Code Acute Software Administrator for Valeriano Whatley
[2022-10-16 09:29] VITALS: BP 84/53; PULSE 75; RESP 12; TEMP 36.1; O2SAT 95
--- NOTE | 2022-10-16 09:31 | ANE.PACU2 ---
Inpatient post-anesthesia follow up: Airway intact: Yes Vital signs: Temperature 97 F Pulse Rate 75 Respiratory Rate 12 Blood Pressure 84/53 Pulse Oximetry 95 Oxygen Delivery Me thod Room Air Oxygen Flow Rate Fraction of Inspir ed Oxygen Hydration adequate: Yes Nausea and vomiting: No Pain level: 1 Mental status: Baseline
[2022-10-16 09:48] VITALS: BP 95/57; PULSE 75; RESP 18; O2SAT 97
== END 2022-10-16 09:57 | disposition home or self-care (01) ==
PROVIDERS: PCP Internal Medicine; Visit Provider Surgery
PROC: 0DJD8ZZ Inspection of Lower Intestinal Tract, Via Natural or Artificial Opening Endoscopic (ICD-10-PCS; CPT 45378; principal; 2022-10-16 09:30)
DX: Z86.010 Personal history of colon polyps (principal); K57.30 Diverticulosis of large intestine without perforation or abscess without bleeding; K21.9 Gastro-esophageal reflux disease without esophagitis; Z86.718 Personal history of other venous thrombosis and embolism; E03.9 Hypothyroidism, unspecified; F17.210 Nicotine dependence, cigarettes, uncomplicated
CPT/HCPCS: 45378; J2704; J7030

== ENCOUNTER 2022-10-29 09:03 | Outpatient (CLI) | payer MEDICAID, SELFPAY | END 2022-10-29 09:04 | disposition home or self-care (01) | LOC: LAB 09:36 | PROVIDERS: PCP Internal Medicine; Visit Provider Specialist | DX: J39.2 Other diseases of pharynx (principal); R07.0 Pain in throat | CPT/HCPCS: 88305; 88331; 88342 ==

== ENCOUNTER 2022-12-25 14:04 | Outpatient (RCR) | payer MEDICAID, SELFPAY ==
--- NOTE | 2022-12-25 14:48 | N.ONRAD NP_ITS ---
Radiation Oncology Consultation Patient Name: Hortencia Mckeon Date of : 1970 Date of Service: 12/25/2022 Attending Physician: Delvin Veloz M.D. Hortencia Mckeon was seen in consultation this afternoon at the request of Melquiades Thomas M.D. for evaluation regarding adjuvant head and neck radiotherapy in the management of a recently diagnosed hypopharyngeal carcinoma. The patient was evaluated by her PCP for odynophagia. A CT of the neck obtained on August 29, 2022 described a low-attenuation nodule within enhancing rim within the right palatine tonsil measuring 8 mm x 4 mm. There was no lymphadenopathy. She was referred to Aristeo Frye M.D.at [facility]. A nasopharyngoscopy identified a lesion adjacent to the right tonsil within the right hypopharynx. A diagnostic laryngoscopy completed on October 29, 2022 diagnosed a poorly-differentiated, non-keratinizing invasive squamous cell carcinoma. She was referred to Melquiades Thomas M.D. at [facility] in [place], [place]. A nasolaryngoscopy demonstrated an ulcerated lesion at the inferior aspect of the right tonsil extending onto the lateral aspect of the pharyngoepiglottic fold. A PET scan (independently reviewed in [facility]) ordered on November 12, 2022 revealed a focus of intense FDG uptake along the right lateral muscle epiglottic fold (SUV 6.3). A right transoral partial pharyngectomy with bilateral neck dissection of levels II, III, and IV was performed on November 24, 2022. Pathological findings included a 3 mm invasive poorly-differentiated keratinizing squamous cell carcinoma. A close surgical margin was noted (1 mm). A total of 67 lymph nodes were harvested with 2 right level II lymph nodes harboring metastases without extranodal extension. I discussed with Ms. Mckeon The [place] Joint Commission on Cancer Staging for head and neck malignancies and specifically, the pathological stage KO (T1N2b) corresponding to her disease and The National Comprehensive Cancer Network Guidelines for adjuvant radiotherapy in patients with newly resected tumors and adverse features (i.e. positive/close margins, pN2/pN3, pT3-pT4 tumors, extranodal extension, or lymphovascular invasion/perineural. I also reviewed the classic studies, - the EORTC 11361 and RTOG 9501 trials - that established this recommendation. The EORTC investigation demonstrated an overall survival advantage and improved locoregional control in the combined modality arm, while the RTOG study documented improved disease-free survival and locoregional control in a subgroup of patients with positive margins and extranodal extension. Following an appraisal of her case with Dr. Thomas, he felt radiotherapy could be avoided given the early T-stage and the extent of lymph node dissection. If the patient elects to pursue radiotherapy. I would endorse a 6 week course of radiation therapy. The potential toxicities of head and neck radiotherapy were canvassed. The patient???s medical treatment plan was discussed with Melquiades Thomas M.D. Signed by: Delvin Veloz 12/25/2022 2:47:08 PM
== END 2023-01-06 23:59 | disposition home or self-care (01) ==
LOC: ONCMED 14:04
PROVIDERS: PCP Internal Medicine; Visit Provider Radiology Radiation Oncology
DX: C13.8 Malignant neoplasm of overlapping sites of hypopharynx (principal); R13.19 Other dysphagia; C77.8 Secondary and unspecified malignant neoplasm of lymph nodes of multiple regions; F17.210 Nicotine dependence, cigarettes, uncomplicated
CPT/HCPCS: 99205

== ENCOUNTER 2023-01-07 10:14 | Outpatient (CLI) | payer MEDICAID, SELFPAY ==
--- NOTE | 2023-01-07 10:30 | CT_ITS ---
WS: [id number] CT NECK TECHNIQUE: Contrast-enhanced CT of the neck with coronal and sagittal reformatted images. CLINICAL INFORMATION: MALIGNANT NEOPLASM OF OVERLAPPING SITES OF HYPOPHARYNX COMPARISON: CT August 29, 2022 DLP: 191.[address] scans at [facility] use at least one of these dose optimization techniques: automated e xposure control; mA and/or kV adjustment per patient size (includes targeted exams where dose is matc hed to clinical indication); or iterative reconstruction. FINDINGS: Parotid glands are normal. Normal submandibular glands. Normal posterior nasopharynx. Normal paraphar yngeal fat. Normal palatine tonsils. Postoperative changes surgical clips in the LEFT neck. Enhanceme nt in the RIGHT posterior tonsil similar to the prior examination. [place] tonsils otherwise unchang ed in appearance. Paranasal sinuses and mastoid air cells well aerated. Normal visualized thyroid gland. Lung apices ar e normal. Mild spondylitic changes cervical spine. Straightening of the normal cervical lordosis. Sli ght anterolisthesis C3 on C4. Disc space narrowing worse at C5-C6 and C6-C7. No cervical lymphadenopa thy. CT/CT neck w con* [id number] IMPRESSION: 1. No evidence of supraglottic or glottic mass. 2. No cervical lymphadenopathy. 3. Normal salivary glands. 4. Postoperative changes surgical clips in the LEFT neck. 5. Enhancement in the RIGHT posterior tonsil similar to the prior examination. [place] tonsils otherwise unchanged in appearance. 6. No other remarkable findings.
[2023-01-07] MEDS: iohexol 350 mg/mL 500 mL Btl (per mL) IV (10:55)
== END 2023-01-07 10:15 | disposition home or self-care (01) ==
LOC: RAD 10:19
PROVIDERS: PCP Internal Medicine; Visit Provider Specialist
DX: C18.3 Malignant neoplasm of hepatic flexure (principal)
CPT/HCPCS: 70491; Q9967

== ENCOUNTER 2023-02-21 05:57 | Outpatient (CLI) | payer MEDICAID, SELFPAY ==
--- NOTE | 2023-02-21 | PETR_ITS ---
PROCEDURE INFORMATION: Exam: PET/CT Skull Base to Mid-thigh Exam date and time: 02/21/2023 10:59 AM Age: 52 years old Clinical indication: Condition or disease; Primary cancer: Malignant neoplasm overlapping nasopharnyx; Follow-up oncological assessment LABS AND CLINICAL REPORTS: Glucose: 119 mg/dl Treatment strategy for malignancy (PET staging): Initial Staging (PI) TECHNIQUE: Imaging protocol: Following at least four-hour fasting and following the injection of radiopharmaceutical, low dose CT images were obtained. Then, PET images were obtained. Attenuation corrected images were constructed using the CT scan. Fused images of PET and CT were reviewed. The standardized uptake values (SUV) reported below are maximum values within a region of interest, expressed in gm/ml. Exam includes orbital meatal line to mid-thigh. Radiopharmaceutical: 12.18 mCi F-18 FDG (Fluorodeoxyglucose), IV. Time of imaging post radiopharmaceutical administration: 1 hour Injection site: Left antecubital COMPARISON: CT neck 01/07/2023, CT neck 08/29/2022, CT abdomen pelvis w con* [id number] 05/28/2021 11:55 PM, CTA chest 03/30/2021 FINDINGS: Brain: Visualized brain has normal physiologic uptake. Pharynx: Asymmetric uptake in the right palatine tonsil is noted, associated with similar mild asymmetric enlargement, SUV max 4.8, compared with SUV max 4.0 on the left. Larynx: No abnormal uptake. Lungs, pleura and trachea: No abnormal uptake. Streaky linear density in the posterior right lower lobe is compatible with atelectasis or scarring. Previously noted left-sided pleural effusion is no longer identified. Heart: Normal physiologic uptake. Mediastinal space: No abnormal uptake. Liver: No abnormal uptake. Gallbladder and bile ducts: No abnormal uptake. Pancreas: No abnormal uptake. Spleen: No abnormal uptake. Adrenal glands: No abnormal uptake. Kidneys and ureters: Normal physiologic uptake. Stomach and bowel: No abnormal uptake. There are scattered colonic diverticula. Intraperitoneal and retroperitoneal spaces: No abnormal uptake. Previously noted ascites is no longer identified. Vasculature: No abnormal uptake. There are diffuse atherosclerotic changes. Lymph nodes: No abnormal uptake. No lymphadenopathy in the head, neck, chest, abdomen, pelvis, and extremities. Bones/joints: No abnormal uptake in the visualized axial and appendicular skeleton. Fixation screws traverse the right femoral neck. Regions of non radiotracer avid mild serpiginous linear sclerotic density along the anterior right femoral head are noted on series 3, image 143 and appears similar compared with 05/28/2021. No acute fracture. Healed posterior right 9th and 10th rib fractures are noted. Soft tissues: No abnormal uptake in the visualized head, neck, chest, abdomen, pelvis, and extremities. There are postoperative changes in the left neck soft tissues. METRICS: Mediastinal blood pool: SUV max 2.3 [facility] [id number] IMPRESSION: 1. Mild similar asymmetric enlargement of the right palatine tonsil is noted, with mild asymmetric uptake (SUV max 4.8 compared with 4.0 on the left). This uptake may reflect inflammatory or infectious involvement. Neoplastic involvement cannot be entirely excluded. 2. Postoperative changes within the left neck without evidence of elevated uptake. 3. Postoperative changes of the right proximal femur with evidence of femoral head avascular necrosis. 4. Additional nonurgent findings as detailed above.
== END 2023-02-21 05:58 | disposition home or self-care (01) ==
LOC: RAD 02-23 05:57
PROVIDERS: PCP Internal Medicine; Visit Provider Specialist
DX: C13.8 Malignant neoplasm of overlapping sites of hypopharynx (principal)
CPT/HCPCS: 78815; A9552

== ENCOUNTER 2023-02-25 08:41 | Outpatient (CLI) | payer MEDICAID, SELFPAY ==
--- NOTE | 2023-02-25 08:51 | MM_ITS ---
WS: [id number] BILATERAL SCREENING DIGITAL TOMOSYNTHESIS MAMMOGRAM WITH CAD HISTORY: SCREENING COMPARISON: 11/12/2021, 10/15/2021 Bilateral CC and MLO views with tomosynthesis and synthetic mammography submitted. Computer aided det ection analyzed. Breast composition: The breasts are heterogeneously dense, which may obscure small masses. No suspici ous masses, microcalcifications or architectural distortion. Benign breast arterial calcifications. MM/[place] [id number] IMPRESSION: BI-RADS: 2-Benign FOLLOW UP: 1 Year Follow-up
== END 2023-02-25 08:42 | disposition home or self-care (01) ==
LOC: RAD 08:45
PROVIDERS: PCP Internal Medicine; Visit Provider Internal Medicine
DX: Z12.31 Encounter for screening mammogram for malignant neoplasm of breast (principal)
CPT/HCPCS: 77063; 77067

== ENCOUNTER 2023-05-01 07:04 | Outpatient (CLI) | payer MEDICAID, SELFPAY ==
--- NOTE | 2023-05-01 07:12 | US_ITS ---
WS: [id number] RIGHT UPPER QUADRANT ULTRASOUND HISTORY: ALCOHOLIC CIRRHOSIS OF LIVER WITH ASCITES COMPARISON: None available. Liver: 17.2 cm in length. Liver is measuring top normal size. There is very mild coarsened echotextur e diffusely throughout the liver. Early changes of nodularity along the surface of the liver. No mass and no intrahepatic duct dilatation. Portal Vein: Normal hepatopetal flow with monophasic waveform. Gallbladder: Normally distended gallbladder with no stones or wall thickening. CBD: 0.4 cm Pancreas: Normal size and echogenicity. Right kidney: 10.7 cm in length. Normal size and echogenicity. No hydronephrosis or mass. Aorta and IVC: Unremarkable abdominal aorta and IVC. No ascites. US/US abdomen limited [id number] IMPRESSION: 1. Very mild diffuse coarsened echotexture throughout the liver with surface n odularity. Findings of early cirrhosis. 2. Normal hepatopetal flow the portal vein. 3. No hepatic mass. 4. Normal gallbladder.
== END 2023-05-01 07:05 | disposition home or self-care (01) ==
PROVIDERS: PCP Internal Medicine; Visit Provider Internal Medicine
DX: K70.31 Alcoholic cirrhosis of liver with ascites (principal)
CPT/HCPCS: 76705

== ENCOUNTER 2023-05-19 07:24 | Outpatient (CLI) | payer MEDICAID, SELFPAY ==
--- NOTE | 2023-05-19 07:29 | CT_ITS ---
WS: [id number] CT NECK TECHNIQUE: Contrast-enhanced CT of the neck with coronal and sagittal reformatted images. CLINICAL INFORMATION: SQUAMOUS CELL CARCINOMA OF PHARYNX/TONSIL ASYMMETRY COMPARISON: CT neck January 07, 2023. PET/CT February 21, 2023 DLP: 142.[address] scans at [facility] use at least one of these dose optimization techniques: automated e xposure control; mA and/or kV adjustment per patient size (includes targeted exams where dose is matc hed to clinical indication); or iterative reconstruction. FINDINGS: Dental artifact degrades some images of the tongue base. RIGHT retropharyngeal Soft tissue mass or necrotic lymph node with enhancement adjacent to the RIGHT posterior tonsil extending into the adjacent parapharyngeal fat has progressed compared to the prior examination highly suspicious for neoplasm. Soft tissue thickening and enhancement extends into the p alatine tonsil anteriorly. Soft tissue mass measures 1.8 x 1.4 cm with central necrosis. This measure s approximately 1.6 cm in craniocaudal dimension. This demonstrated mild FDG activity on the prior PE T/CT recommend further evaluation with ENT. Parotid glands are normal. Normal submandibular glands. Normal vallecula and piriform sinuses. Normal glottis and subglottic airway. Tiny RIGHT thyroid nodule. Lung apices are well aerated. Otherwise no enlarged cervical chain lymph nodes. Moderate spondylitic changes cervical spine with straightening of the normal cervical lordosis. Slight anterolisthesis C3 on C4. Postoperative changes LEFT neck. CT/CT neck w con* [id number] IMPRESSION: 1. Progressed enhancing RIGHT retropharyngeal soft tissue mass or necrotic lym ph node involving/adjacent to the RIGHT posterior palatine tonsil and RIGHT par apharyngeal fat progressed since the prior examinations with mild mass effect o n the oropharynx highly suspicious for neoplasm. This measures 1.8 1.4 x 1.6 cm . Recommend ENT evaluation. This is progressed since the prior PET/CT. 2. Supraglottic and glottic airway are patent. Subglottic airway is patent. 3. Normal Salivary glands. 4. Prior postoperative changes LEFT neck. 5. No other suspicious findings.
[2023-05-19] MEDS: iohexol 350 mg/mL 500 mL Btl (per mL) IV (07:54)
== END 2023-05-19 07:25 | disposition home or self-care (01) ==
PROVIDERS: PCP Internal Medicine; Visit Provider Internal Medicine
DX: C14.0 Malignant neoplasm of pharynx, unspecified (principal); Q38.8 Other congenital malformations of pharynx; R93.3 Abnormal findings on diagnostic imaging of other parts of digestive tract; Z98.890 Other specified postprocedural states
CPT/HCPCS: 70491; Q9967

== ENCOUNTER 2024-03-24 07:44 | Outpatient (CLI) | payer MEDICAID, SELFPAY ==
--- NOTE | 2024-03-24 07:53 | MM_ITS ---
WS: [id number] BILATERAL SCREENING DIGITAL TOMOSYNTHESIS MAMMOGRAM WITH CAD HISTORY: SCREENING COMPARISON: 11/12/2021, 10/15/2021, 02/25/2023 Bilateral CC and MLO views with tomosynthesis and synthetic mammography submitted. Computer aided det ection analyzed. Breast composition: There are scattered areas of fibroglandular density. No suspicious masses, microc alcifications or architectural distortion. Benign arterial calcifications. Asymmetries within each br east continue to involute as expected for normal aging. No suspicious mass or calcification. MM/[place] [id number] IMPRESSION: BI-RADS: 2-Benign FOLLOW UP: 1 Year Follow-up
== END 2024-03-24 07:45 | disposition home or self-care (01) ==
LOC: RAD 07:44
PROVIDERS: PCP Internal Medicine; Visit Provider Internal Medicine
DX: Z12.31 Encounter for screening mammogram for malignant neoplasm of breast (principal)
CPT/HCPCS: 77063; 77067

== ENCOUNTER 2024-03-24 07:47 | Outpatient (CLI) | payer MEDICAID, SELFPAY ==
[2024-03-25 15:14] LABS: Anti-Nuclear Antibody Screen NEGATIVE (NEGATIVE)
== END 2024-03-24 07:48 | disposition home or self-care (01) ==
LOC: LAB 07:50
PROVIDERS: PCP Internal Medicine; Visit Provider Internal Medicine
DX: R76.0 Raised antibody titer (principal)
CPT/HCPCS: 36415; 86038

== ENCOUNTER → 2024-05-08 13:07 | Outpatient (BNVA) | payer MEDICAID, SELFPAY | PROVIDERS: PCP Internal Medicine; Visit Provider Family Medicine | DX: J02.9 Acute pharyngitis, unspecified (principal) | CPT/HCPCS: 87071; 87880 ==

== ENCOUNTER 2024-10-28 09:03 | Outpatient (CLI) | payer MEDICAID, SELFPAY ==
--- NOTE | 2024-10-28 09:08 | US_ITS ---
WS: [id number] RIGHT UPPER QUADRANT ULTRASOUND HISTORY: ALCOHOLIC CIRRHOSIS OF LIVER W/ASCITES COMPARISON: 05/01/2023 Liver: 16.8 cm in length. Normal size liver. Coarse echotexture throughout the liver. Surface irregul arity and nodularity. No mass. No intrahepatic duct dilatation. Portal Vein: Normal hepatopetal flow with monophasic waveform. Gallbladder: Normally distended gallbladder with no stones or wall thickening. CBD: 0.3 cm Pancreas: Normal size and echogenicity. Right kidney: 10.4 cm in length. Normal size and echogenicity. No hydronephrosis or mass. Aorta and IVC: Unremarkable abdominal aorta and IVC. No ascites. US/US abdomen limited [id number] IMPRESSION: 1. Cirrhotic appearing liver. Surface nodularity has slightly progressed since 05/01/2023. No mass or intrahepatic duct dilatation. 2. Normal gallbladder. 3. No ascites.
== END 2024-10-28 09:04 | disposition home or self-care (01) ==
LOC: RAD 09:06
PROVIDERS: PCP Internal Medicine; Visit Provider Internal Medicine
DX: K74.60 Unspecified cirrhosis of liver (principal)
CPT/HCPCS: 76705

== ENCOUNTER → 2024-11-07 08:54 | Outpatient (BNVA) | payer MEDICAID, SELFPAY | PROVIDERS: PCP Internal Medicine | DX: J02.9 Acute pharyngitis, unspecified (principal) | CPT/HCPCS: 87880 ==

== ENCOUNTER 2025-02-24 13:15 | Outpatient (CLI) | payer MEDICAID, SELFPAY ==
--- NOTE | 2025-02-24 14:01 | CTR_ITS ---
PROCEDURE INFORMATION: Exam: CT Abdomen And Pelvis With Contrast Exam date and time: 02/24/2025 2:12 PM Age: 54 years old Clinical indication: Abdominal pain; Epigastric; Prior surgery; Surgery date: 6+ months; Surgery type: Paracentesis, right hip; HX of skin, throat cancer; Additional info: Epigastric pain, cirrhosis, ascites TECHNIQUE: Imaging protocol: Computed tomography of the abdomen and pelvis with contrast. Radiation optimization: All CT scans at this facility use at least one of these dose optimization techniques: automated exposure control; mA and/or kV adjustment per patient size (includes targeted exams where dose is matched to clinical indication); or iterative reconstruction. Contrast material: OMNI 350; Contrast volume: 100 ml; Contrast route: INTRAVENOUS (IV); COMPARISON: PT PET skull to thigh SUBS [id number] 02/21/2023 10:59 AM RADIATION DOSE METRICS: Total DLP (mGy-cm): 369.71 FINDINGS: Liver: Normal. No mass. Gallbladder and biliary ducts: Normal. No calcified stones. No ductal dilation. Pancreas: Normal. No ductal dilation. Spleen: Normal. No splenomegaly. Adrenal glands: Normal. No mass. Kidneys and ureters: Normal. No hydronephrosis. Stomach and bowel: Colonic diverticulosis is present without diverticulitis. Possible pedunculated polyp in the proximal descending colon seen best on series and series 04/18. Appendix: No evidence of appendicitis. Intraperitoneal space: Unremarkable. No free air. No significant fluid collection. Vasculature: Aortoiliac atherosclerotic disease is seen without evidence of aneurysm. Lymph nodes: Unremarkable. No enlarged lymph nodes. Urinary bladder: Unremarkable as visualized. Reproductive: Unremarkable as visualized. Bones/joints: Unremarkable. No acute fracture. Soft tissues: Rectus diastasis. CT/CT abdomen pelvis w con* [id number] IMPRESSION: 1. Possible pedunculated polyp in the proximal descending colon seen best on series and series 04/18. Nonemergent follow-up colonoscopy should be considered. 2. No evidence of acute abdominal or pelvic process.
[2025-02-24] MEDS: iohexol 350 mg/mL 500 mL Btl (per mL) IV (14:17)
[2025-02-24] MEDS: iohexol 350 mg/mL 500 mL Btl (per mL) PO (14:18)
== END 2025-02-24 13:16 | disposition home or self-care (01) ==
PROVIDERS: PCP Internal Medicine; Visit Provider Internal Medicine
DX: R10.13 Epigastric pain (principal); K70.31 Alcoholic cirrhosis of liver with ascites; R93.89 Abnormal findings on diagnostic imaging of other specified body structures; K57.30 Diverticulosis of large intestine without perforation or abscess without bleeding; I70.8 Atherosclerosis of other arteries; M62.08 Separation of muscle (nontraumatic), other site
CPT/HCPCS: 74177

== ENCOUNTER 2025-05-30 08:16 | Outpatient (CLI) | payer MEDICAID, SELFPAY ==
--- NOTE | 2025-05-30 08:23 | MM_ITS ---
WS: [id number] BILATERAL 3D TOMOSYNTHESIS DIGITAL SCREENING MAMMOGRAPHY WITH CAD CLINICAL INFORMATION: SCREEN HISTORY: Screening mammogram. No current complaints. COMPARISON: 2023 TECHNIQUE: Bilateral CC and MLO views. FINDINGS: Scattered fibroglandular densities bilaterally. No suspicious focal mass, asymmetry, calcifications, or architectural distortion. No evidence of malignancy. Vascular calcifications. MM/MM scr tomosynthesis [id number] IMPRESSION: DENSITY: There are scattered areas of fibroglandular density. BI-RADS: 2 - Benign. FOLLOW UP: 1 Year Follow-up Recommend return to annual screening mammography.
== END 2025-05-30 08:17 | disposition home or self-care (01) ==
PROVIDERS: PCP Internal Medicine; Visit Provider Nurse Practitioner Family
DX: Z12.31 Encounter for screening mammogram for malignant neoplasm of breast (principal); R92.323 Mammographic fibroglandular density, bilateral breasts; R92.1 Mammographic calcification found on diagnostic imaging of breast
CPT/HCPCS: 77063; 77067

== ENCOUNTER 2025-09-01 09:07 | Outpatient (CLI) | payer MEDICAID, SELFPAY ==
--- NOTE | 2025-09-01 09:20 | XR_ITS ---
WS: [id number] Chest 2 views, 09/01/2025 Clinical Data: (C13.9) Malignant neoplasm hypopharynx Comparison: Portable chest, 04/04/2021 Findings: No nodules, masses or effusions are seen. The heart is normal. The pulmonary vascularity is not increased. No pneumonia or pneumothorax is seen. XR/XR chest 2V* [id number] Impression: Negative chest.
[2025-09-01 09:47] LABS: Hematocrit 40.7 % (36-47); Hemoglobin 12.80 g/dL (11.27-16.99); Mean Corpuscular HGB Conc 31.4 g/dL (30-55); Mean Corpuscular Hemoglobin 27.1 pg (27-33); Mean Corpuscular Volume 86.2 fl (85-98); Nucleated Red Blood Cells % 0 %; Platelet Count 330 10^3/cmm (157-399); Red Blood Count 4.72 10^6/uL (3.85-5.65); White Blood Count 6.33 10^3/uL (3.29-11.43)
[2025-09-01 10:24] LABS: Alanine Aminotransferase 11 U/L (0-33); Albumin Level 4.7 g/dL (3.5-5.2); Alkaline Phosphatase 82 U/L (35-105); Anion Gap 17.0 (5-19); Aspartate Amino Transferase 21 U/L (0-32); Blood Urea Nitrogen 12 mg/dL (6-20); Calcium 9.9 mg/dL (8.5-10.5); Carbon Dioxide 26 mmol/L (22-29); Chloride 99 mmol/L (98-107); Globulin 3.2 g/dL (1.3-4.6); Glucose 83 mg/dL (65-115); Osmolality Calculated 285 mOsm/kg (285-295); Potassium 4.0 mmol/L (3.5-5.1); Sodium 138 mmol/L (136-145); Thyroid Stimulating Hormone 3.19 uIU/mL (0.27-4.20); Total Protein 7.9 g/dL (6.6-8.7)
== END 2025-09-01 09:08 | disposition home or self-care (01) ==
PROVIDERS: PCP Internal Medicine; Visit Provider Specialist
DX: C13.9 Malignant neoplasm of hypopharynx, unspecified (principal)
CPT/HCPCS: 71046; 80053; 84443; 85025

== ENCOUNTER 2025-09-07 09:22 | Outpatient (CLI) | payer MEDICAID, SELFPAY ==
--- NOTE | 2025-09-07 09:30 | XR_ITS ---
WS: [id number] Exam: XR lumbar spine 2-3V* [id number] Date/Time of Exam: 09/07/2025 9:33 AM Reason For Exam: LSPINE DEGENERATIVE DISC DZ W/RADICULOPATHY DLP: No acute fracture. Moderate degenerative narrowing of the L5-S1 disc. Mild to moderate levoscoliosis. Posterior elements are intact. Hardware partially visualized in the RIGHT femoral head. Aortic atherosclerosis. XR/XR lumbar spine 2-3V* [id number] IMPRESSION: 1. Degenerative changes and levoscoliosis.
--- NOTE | 2025-09-07 09:30 | XR_ITS ---
WS: [id number] Exam: XR thoracic spine 3V* [id number] Date/Time of Exam: 09/07/2025 9:33 AM Reason For Exam: TSPINE PAIN No fracture or malalignment noted. Disc spaces are preserved. Normal paraspinal soft tissues. No significant scoliosis. XR/XR thoracic spine 3V* [id number] IMPRESSION: 1. Negative T-spine study.
== END 2025-09-07 09:23 | disposition home or self-care (01) ==
PROVIDERS: PCP Internal Medicine; Visit Provider Internal Medicine
DX: M54.9 Dorsalgia, unspecified (principal); M41.87 Other forms of scoliosis, lumbosacral region; Z96.89 Presence of other specified functional implants; I70.0 Atherosclerosis of aorta; M51.17 Intervertebral disc disorders with radiculopathy, lumbosacral region
CPT/HCPCS: 72072; 72100